=== PATIENT | female | born 1945 | race Caucasian/White ===

== ENCOUNTER 2016-06-10 20:13 | Emergency (ER) | payer MEDICARE, MEDICAID ==
[~2016-06-10] VITALS: Ht 149.9 cm; Wt 77.1 kg
[2016-06-10] MEDS ORDERED: AMIT100TA PO (20:30)
[2016-06-10] MEDS ORDERED: NEXI40CA PO (20:30)
[2016-06-10] MEDS ORDERED: COLC1TAB5 PO (20:30)
[2016-06-10] MEDS ORDERED: IBUP200C PO (20:30)
[2016-06-10] MEDS ORDERED: RANI150T PO (20:30)
[2016-06-10] MEDS ORDERED: MAGN1TAB25 PO (20:30)
[2016-06-10] MEDS ORDERED: TOPR100T PO (20:30)
[2016-06-10] MEDS ORDERED: MECL-86 PO (20:30)
[2016-06-10] MEDS ORDERED: HYDR12.55 PO (20:30)
[2016-06-10] MEDS ORDERED: NORCO, ANEXSIA 5/325MG TABLET (HYDROcodone/ACETAMINOPHEN) PO ONE ×2 (20:45→23:00)
--- NOTE | 2016-06-10 21:30 | REPUSA ---
CLINICAL HISTORY: Head trauma. TECHNIQUE: Multiple axial brain CT scan sections were obtained from base to vertex without contrast a dministration. COMMENTS: There is no evidence of skull fracture. Right frontal scalp hematoma is seen. The study shows normal configuration of sella turcica. There are no intra or extra-axial collections. There is no mass effect or midline shift. There is no evidence of hematoma formation. No hydrocephal us is present. No abnormal calcifications are noted. No significant abnormalities are seen either in the posterior fossa or supratentorial compartment. The sinuses and mastoid air cells are patent. IMPRESSION: No evidence of acute intracranial pathology. No intracranial hemorrhage or skull fracture. Right fron mckenna scalp hematoma is seen. Thank you for your kind referral of this patient.
[2016-06-10 22:01] LABS: BASO % 0.2 % (0.0-1.0); EOS # 0.1 K/mm3 (0.0-0.50); EOS % 1.6 % (0.0-3.0); LARGE UNSTAINED CELL # 0.2 K/mm3 (0.0-0.4); LARGE UNSTAINED CELL % 3.1 % (0.0-4.0); MEAN CORPUSCULAR HEMOGLOBIN 28.6 pg (27.0-33.0); MEAN CORPUSCULAR HGB CONC 32.1 g/dl (32.0-36.5); MEAN CORPUSCULAR VOLUME 89.2 fl (80.0-96.0); MONO # 0.4 K/mm3 (0.0-0.8); MONO % 6.2 % (0.0-5.0); NEUTROPHILS # 4.7 K/mm3 (1.8-7.7); NEUTROPHILS % 73.9 % (36.0-66.0); PLATELET COUNT, AUTOMATED 200 k/mm3 (150-450); WHITE BLOOD COUNT 6.4 K/mm3 (4.0-10.0)
[2016-06-10 22:18] LABS: CALCIUM LEVEL 8.9 MG/DL (8.8-10.2); CREATININE FOR GFR 1.13 MG/DL (0.55-1.02); GLOMERULAR FILTRATION RATE 50.8 (>45); POTASSIUM SERUM 3.9 MEQ/L (3.5-5.1)
[2016-06-10] MEDS ORDERED: NS 1,000 ML IV ONE (22:45)
[2016-06-11 00:22] VITALS: BP 132/78
--- NOTE | 2016-06-11 08:26 | ECGEPIP ---
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
--- NOTE | 2016-06-11 08:49 | REP ---
LEFT WRIST SERIES: Four views. HISTORY: Trauma. FINDINGS: There is marked diffuse osteoporosis. There is a dystrophic pattern of fairly advanced periarticular calcification and chondrocalcinosis involving multiple joints including the MCP, metacarpocarpal, and radiocarpal articulations. In addition, there is a comminuted fracture of the distal radial metaphysis. There is 3 mm of dorsal displacement on lateral film and associated swelling. There is an associated fracture of the base and tip of the ulnar styloid. The distal radial fracture is somewhat impacted. IMPRESSION: 1. Impacted slightly displaced distal radial fracture with associated ulnar styloid fractures. 2. Chondrocalcinosis 3. Periarticular dystrophic soft-tissue calcification affecting multiple joints. 4. Osteoporosis. Signed by Héctor Martinez MD 06/11/2016 06:14 P
== END 2016-06-11 00:24 | disposition home or self-care (01) ==
LOC: EDBD 20:13 → M ED 21:01
DX: S52.502A Unspecified fracture of the lower end of left radius, initial encounter for closed fracture (principal); S00.93XA Contusion of unspecified part of head, initial encounter; W01.0XXA Fall on same level from slipping, tripping and stumbling without subsequent striking against object, initial encounter; Y92.018 Other place in single-family (private) house as the place of occurrence of the external cause; Y93.89 Activity, other specified; Y99.8 Other external cause status; E86.0 Dehydration; K21.9 Gastro-esophageal reflux disease without esophagitis; R42 Dizziness and giddiness; M19.90 Unspecified osteoarthritis, unspecified site; Z79.899 Other long term (current) drug therapy

== ENCOUNTER 2016-07-28 10:11 | Emergency (ER) | payer MEDICARE, MEDICAID ==
[~2016-07-28] VITALS: Ht 149.9 cm; Wt 85.7 kg
[~2016-07-28 10:11] MED LIST: AMIT100TA PO; COLC1TAB5 PO; HYDR12.55 PO; IBUP200C PO; MAGN1TAB25 PO; MECL-86 PO; NEXI40CA PO; RANI150T PO; TOPR100T PO
[2016-07-28 10:12] VITALS: BP 114/78
[2016-07-28] MEDS ORDERED: HYDR200T3 (10:25)
[2016-07-28] MEDS ORDERED: CEPH500C (10:25)
[2016-07-28] MEDS ORDERED: METO-209 (10:25)
[2016-07-28] MEDS ORDERED: BACT800T5 PO (10:42)
[2016-07-28] MEDS ORDERED: VALT1TAB PO (10:42)
[2016-07-28] MEDS ORDERED: TYLETAB14 PO (10:44)
== END 2016-07-28 10:59 | disposition home or self-care (01) ==
LOC: M ED 10:48
DX: B02.8 Zoster with other complications (principal); L03.211 Cellulitis of face; L02.01 Cutaneous abscess of face; Z79.899 Other long term (current) drug therapy

== ENCOUNTER 2020-02-11 00:04 | Emergency (ER) | payer MEDICAID, MEDICARE ==
[~2020-02-11] VITALS: Ht 149.9 cm; Wt 77.0 kg
[~2020-02-11 00:04] MED LIST changes: +BACT800T5 PO; +CEPH500C; +COLC1TAB14 PO; -COLC1TAB5 PO; +HYDR200T3; -IBUP200C PO; +IBUP200C25 PO; -MAGN1TAB25 PO; +MAGN1TAB26 PO; +METO1TAB33; +TYLETAB14 PO; +VALT1TAB PO
[2020-02-11] MEDS ORDERED: NORCO, ANEXSIA 5/325MG TABLET (HYDROcodone/ACETAMINOPHEN) PO ONE (00:45)
[2020-02-11] MEDS ORDERED: METOPROLOL SUCC (TopROL XL) 100MG *XL* TAB PO ONE (01:45)
[2020-02-11 01:49] VITALS: BP 156/98
--- NOTE | 2020-02-11 01:57 | REPVR ---
PROCEDURE INFORMATION: Exam: XR Right Shoulder Exam date and time: 02/11/2020 1:30 AM Age: 75 years old Clinical indication: Other: Pain TECHNIQUE: Imaging protocol: XR Right shoulder. Views: 2 or more views. COMPARISON: No relevant prior studies available. FINDINGS: Bones/joints: Bony mineralization is normal for age. No evidence of acute fracture. No concerning osseous lesion. AC joint is aligned normally. Joint space narrowing and AC joint osteophyte formation suggests mild OA. Glenohumeral joint is aligned normally. Advanced degenerative osteoarthrosis with joint space narrowing marginal osteophytes and probable synovial osteochondromas Visualized upper ribs are unremarkable. Soft tissues: No abnormal soft tissue process. No concerning soft tissue calcifications. IMPRESSION: Advanced degenerative osteoarthrosis of the glenohumeral joint and mild degenerative arthrosis of the AC joint. No acute fracture Electronically signed by: Kasi Pelayo On 02/11/2020 01:56:54 AM
--- NOTE | 2020-02-11 02:00 | REPVR ---
PROCEDURE INFORMATION: Exam: XR Right Elbow Exam date and time: 02/11/2020 1:30 AM Age: 75 years old Clinical indication: Other: Pain TECHNIQUE: Imaging protocol: XR Right elbow. Views: 3 or more views. COMPARISON: No relevant prior studies available. FINDINGS: Diffuse skeletal demineralization. No soft tissue defect or focal soft tissue swelling. No acute fracture or osseous malalignment. Ulnohumeral and radiocapitellar degenerative joint space narrowing and osteophyte formation is present. Ossification is present within the common flexor and common extensor origins and chondrocalcinosis is seen in the joint. IMPRESSION: No acute or destructive process. 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 Common flexor and common extensor origin chronic tendinopathy with ossification Electronically signed by: Kasi Pelayo On 02/11/2020 02:00:10 AM
[2020-02-11 02:10] LABS: BASO % 0.3 % (0.0-1.0); EOS % 0.2 % (0.0-3.0); HEMATOCRIT 36.4 % (36.0-47.0); HEMOGLOBIN 11.7 g/dl (12.0-15.5); LYMPH # 1.3 10^3/uL (1.5-5.0); LYMPH % 8.9 % (24.0-44.0); MEAN CORPUSCULAR HEMOGLOBIN 28.6 pg (27.0-33.0); MEAN CORPUSCULAR HGB CONC 32.1 g/dl (32.0-36.5); MONO # 1.5 10^3/uL (0.0-0.8); MONO % 10.4 % (0.0-5.0); NEUTROPHILS # 11.6 10^3/uL (1.5-8.5); NEUTROPHILS % 79.9 % (36.0-66.0); PLATELET COUNT, AUTOMATED 243 10^3/uL (150-450); RED BLOOD COUNT 4.09 10^6/uL (4.00-5.40); WHITE BLOOD COUNT 14.6 10^3/uL (4.0-10.0)
[2020-02-11 02:41] LABS: ERYTHROCYTE SEDIMENTATION RATE 62 mm/hr (0-30)
[2020-02-11] MEDS ORDERED: KETOROLAC TROMETHAMINE 10 MG TAB PO ONE (03:15)
[2020-02-11] MEDS ORDERED: COLCHICINE 0.6 MG TAB PO ONE (04:15)
--- NOTE | 2020-02-11 05:14 | ECGEPIP ---
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
[2020-02-11] MEDS ORDERED: KETO10TAB PO (05:29)
[2020-02-11] MEDS ORDERED: COLC1TAB13 PO (05:29)
[2020-02-11 05:34] VITALS: BP 121/66
--- NOTE | 2020-02-13 09:56 | ECGEPIP ---
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
== END 2020-02-11 05:54 | disposition home or self-care (01) ==
LOC: M ED 00:04
DX: M10.9 Gout, unspecified (principal); M19.90 Unspecified osteoarthritis, unspecified site; I10 Essential (primary) hypertension; K21.9 Gastro-esophageal reflux disease without esophagitis; Z91.19 Patient's noncompliance with other medical treatment and regimen

== ENCOUNTER 2021-01-14 22:06 | Inpatient (IN) | payer MEDICARE ==
[~2021-01-14 22:06] MED LIST changes: +COLC0.6T47 PO; +KETO10TAB PO
--- OUTSIDE RECORDS SUMMARY | 2021-01-14 22:12 | CCD | Continuity of Care Document ---
Author Author Renetta RAMOS M.D. Organization Unknown Address [address] [facility] [address] [place] [address] Phone [phone] Care Team Providers Care Crm Analyst Name Role Phone Ed Ramos MD AUTM [phone] Abundio Doran MD AUTM [phone] Problems Active Problems Provider Date Pure hypercholesterolemia Onset: 0 000 Gastroesophageal reflux disease Onset: 0 Labile essential hypertension Onset: Urinary incontinence Ed Ramos M.D. Onset: 07/23/2016 Social History Type Date Description Comments Sex Unknown ETOH Use Denies alcohol use Tobacco Use Start: Unknown Patient has never smoked Allergies, Adverse Reactions, Alerts Description No Known Drug Allergies Medications Active Medications SIG Qnty Indications Ordering Provide r Date Tramadol HCL 50mg Tablets 1 tab 2 times a day as needed pain 14tabs Ed Ramos M.D. 05/21/19 21 Prednisone 10mg Tablets take 2 tablets by mouth x 7 days 14tabs GRICELDA Smith JR 020 Furosemide 20mg Tablets one by mouth in the morning 30tabs GRICELDA Smith JR 020 Famotidine 20mg Tablets 1 by mouth every day 180tabs Ed Ramos M.D. 07/29/2019 Esomeprazole Magnesium 40mg Capsul es DR 1 by mouth every day 90caps Ed Ramos M.D. 05/04/19 20 Triamcinolone Acetonide 0.1% Ointm ent use twice a day as needed to arms and both legs 80gm Kyle Ramos M.D. 04/29/2019 Pain Relief 8 Hour 500mg Tablets E R 1 by mouth as needed every 8 hours 90tabs Nurse #2 Earache Drops Solution Nurse #2 07/23/2016 Depends Size Large use as directed 5PKGS Ed Ramos M.D. 07/23/2016 Hydroxychloroquine Sulfate 200mg T ablets take one tablet by mouth daily 60tabs Alesha Pandya 06/16/2016 Amitriptyline HCL 100mg Tablets 1 by mouth every night at bedtime 30tabs Ed Ramos M.D. 11/2014 Metoprolol Succinate ER 100mg Tablets ER 24HR 1 by mouth every day 30tabs Ed Ramos M.D. 12/06/2014 Magnesium Oxide 400mg Tablets 1 by mouth twice a day 60tabs Ed Ramos M.D. 12/06/2014 Colcrys 0.6mg Tablets Take One Tablet By Mouth Every Day 30tabs Carolina Cheng DO 12/06/2014 Meclizine HCL 25mg Tablets Take One Tablet By Mouth Twice A Day For Dizziness 60tabs Charan Tinajero 11/07/2014 Hydrochlorothiazide 25mg Tablets 1 by mouth every day 30tabs Ed Ramos M.D. 11/03/2014 Immunizations CPT Code Status Date Vaccine Lot # [id number] Refused 01/13/2018 Influenza Virus Vaccine, Quadrivalent (Cciiv4), Derived From Cell 26179 Refused 01/13/2018 Zoster Vaccine 69200 Refused 01/13/2018 Pneumovax 23 60565 Refused 01/13/2018 Tetanus/Diptheria(Td)Toxoids Preservative Free 12728 Refused 01/13/2018 Prevnar 13 87884 Refused 12/09/2017 Prevnar 13 84331 Refused 12/28/2013 Influenza Virus Vaccine 76792 Refused 01/24/2013 Influenza Virus Vaccine 91085 Refused 08/02/2012 Influenza Virus Vaccine 25246 Refused 04/21/2012 Zoster Vaccine 66991 Refused 04/21/2012 Pneumovax 23 60716 Refused 04/21/2012 Adacel- Tetanus Diphtheria P ertussis (Age64 & Under) 51225 Refused 02/15/2011 Influenza Virus Vaccine Vital Signs Date Vital Result Comment 09/10/2020 12:52pm BP Systolic 134 mmHg BP Diastolic 80 mmHg Heart Rate 72 /min Height 60 inches 5'0" Weight 190.00 lb BMI (Body Mass Index) 37.1 kg/m2 05/21/2020 8:25am BP Systolic 130 mmHg BP Diastolic 78 mmHg Heart Rate 80 /min Height 60 inches 5'0" Weight 191.00 lb BMI (Body Mass Index) 37.3 kg/m2 Results Test Acquired Date Facility Test Result H/L Range Note Complete Blood Count 09/10/2020 [facility] Orientation & Mobility Specialist: Dr Gigi Wagner [place], [place] [id number] [phone] WBC 6.9 x10*3/UL 4.1 - 10.9 RBC 4.22 x10*6/UL 4.20 - 6.30 Hemoglobin 12.0 g/dL 12.0 - 18.0 Hematocrit 36.2 % Low 37.0 - 51.0 MCV 85.9 fL 80.0 - 97.0 MCH 28.4 pg 26.0 - 32.0 MCHC 33.1 g/dL 31.0 - 38.0 RDW 13.9 % High 11.6 - 13.7 PLT 272 x10*3/UL 140 - 440 MPV 7.5 FL Low 7.8 - 11.0 Lymph % 18.8 % 10.0 - 58.5 Mid % 6.0 % 1.7 - 9.3 Neut % 75.2 % 37.0 - 92.0 Lymph # 1.3 x10*3/UL 0.6 - 4.1 Mid # 0.4 x10*3/UL 0.1 - 0.6 Neut # 5.2 x10*3/UL 2.0 - 7.8 Comprehensive Chem Profile 09/10/2020 [facility] Mobility Specialist: [place] [address] [phone] Glucose 97 mg/dL 74 - 99 1 BUN 20 mg/dL High 7 - 18 Creatinine 1.0 mg/dL 0.6 - 1.3 Sodium 138 mEq/L 136 - 145 Potassium 4.4 mEq/L 3.5 - 5.1 Chloride 102 mEq/L 98 - 107 Carbon Dioxide 25 mEq/L 21 - 32 Calcium 9.6 mg/dL 8.5 - 10.1 Alk. 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 Ed Ramos M.D. I12.9 Hypertensive chronic kidney disease w st g 1-4/unsp chr kdny N18.30 Chronic kidney disease, stag e 3 unspecified E78.00 Pure hypercholesterolemia, u nspecified E83.42 Hypomagnesemia K21.9 Gastro-esophageal reflux dis ease without esophagitis M13.0 Polyarthritis, unspecified R73.01 Impaired fasting glucose Z96.651 Presence of right artificial knee joint Z96.652 Presence of left artificial knee joint Assessments Date Code Description Provider 09/10/2020 I12.9 Hypertensive chronic kidney dise ase with stage 1 through sta Ed Ramos M.D. 09/10/2020 N18.30 Chronic kidney disease, stage 3 unspecified Ed Ramos M.D. 09/10/2020 E78.00 Pure hypercholesterolemia, unspe cified Ed Ramos M.D. 09/10/2020 E83.42 Hypomagnesemia Ed Ramos M.D. 09/10/2020 K21.9 Gastro-esophageal reflux disease without esophagitis Ed Ramos M.D. 09/10/2020 M13.0 Polyarthritis, unspecified Ed Ramos M.D. 09/10/2020 R73.01 Impaired fasting glucose Ed Ramos M.D. 09/10/2020 Z96.651 Presence of right artificial kne e joint Ed Ramos M.D. 09/10/2020 Z96.652 Presence of left artificial knee joint Ed Ramos M.D. Plan of Treatment 09/10/2020 - Ed Ramos M.D.* I12.9 Hypertensive chronic kidney disease w stg 1-4/unsp chr kdny * N18.30 Chronic kidney disease, stage 3 unspecified * E78.00 Pure hypercholesterolemia, unspecified * E83.42 Hypomagnesemia * K21.9 Gastro-esophageal reflux disease without esophagitis * M13.0 Polyarthritis, unspecified * R73.01 Impaired fasting glucose * Z96.651 Presence of right artificial knee joint * Z96.652 Presence of left artificial knee joint * * Comments:* 1. Hypertensive CKD w stg 1-4/unsp chr kdny: Blood pressure is stable on present regimen, will continue and monitor.2. CKD, stage 3: Await for lab results. She will stay well hydrated. Patient will continue to avoid Aleve, ibuprofen and other nephrotoxins. We will continue to monitor.3. Hypercholesterolemia: Await for lab results. She will continue to watch her diet. We will monitor.4. Hypomagnesemia: Await for lab results.5. GERD without esophagitis: Patient is unsure whether she is taking her medications or not. She did not bring her medicines today along with her. 6. Polyarthritis: Generally stable. She will follow up with Rheumatology appropriately.7. Impaired fasting glucose: Await for lab results. She will continue to watch her diet. We will monitor.8. Presence of right artificial knee joint: No issues or concerns. We will continue to monitor.9. Presence of left artificial knee joint: Generally doing well with history of left knee arthroplasty in 2013. We will monitor.10. Urticaria: We have discussed about this in detail and patient is not interested in seeing Dermatology. She will continue to use Triamcinolone as directed and I have refilled this today. She should avoid scratching and will continue to watch for any infection or red spots. She will let me know if she has any issues.Ongoing cares: She will call me after reaching home regarding her medications that she is curre ntly on. She is referred to hearing for decreased hearing. I am going to see her again in 3-4 months with labs to be determined based on those are being completed on way out today. If she has new problems or issues sooner she will let us know. Functional Status Description No Information Available Mental Status Description No Information Available Referrals Description No Information Available
--- OUTSIDE RECORDS SUMMARY | 2021-01-14 22:13 | CCD ---
Author Author [facility] Organization [facility] Address Unknown Phone Unavailable Care Team Providers Care Fire Boss Name Role Phone Restrepo, Marilou LICENSED PHYSICAL THERAPIST Unavailable Unavailable Restrepo, Marilou LICENSED PHYSICAL THERAPIST Unavailable Unavailable Restrepo, Marilou LICENSED PHYSICAL THERAPIST Unavailable Unavailable Restrepo, Marilou LICENSED PHYSICAL THERAPIST Unavailable Unavailable Restrepo, Marilou LICENSED PHYSICAL THERAPIST Unavailable Unavailable Restrepo, Marilou LICENSED PHYSICAL THERAPIST Unavailable Unavailable Restrepo, Marilou LICENSED PHYSICAL THERAPIST Unavailable Unavailable Restrepo, Marilou LICENSED PHYSICAL THERAPIST Unavailable Unavailable Restrepo, Marilou LICENSED PHYSICAL THERAPIST Unavailable Unavailable Restrepo, Marilou LICENSED PHYSICAL THERAPIST Unavailable Unavailable Restrepo, Marilou LICENSED PHYSICAL THERAPIST Unavailable Unavailable Restrepo, Marilou LICENSED PHYSICAL THERAPIST Unavailable Unavailable Restrepo, Marilou LICENSED PHYSICAL THERAPIST Unavailable Unavailable Ariela Ramos MD Unavailable Unavailable Ariela Ramos MD Unavailable Unavailable Ariela Ramos MD Unavailable Unavailable Ariela Ramos MD Unavailable Unavailable Ariela Ramos MD Unavailable Unavailable Ariela Ramos MD Unavailable Unavailable Ariela Ramos MD Unavailable Unavailable Ariela Ramos MD Unavailable Unavailable Ariela Ramos MD Unavailable Unavailable Ariela Ramos MD Unavailable Unavailable Ariela Ramos MD Unavailable Unavailable Ariela Ramos MD Unavailable Unavailable Ariela Ramos MD Unavailable Unavailable Ariela Ramos MD Unavailable Unavailable Ariela Ramos MD Unavailable Unavailable Ariela Ramos MD Unavailable Unavailable Arieal Ramos MD Unavailable Unavailable Ariela Ramos MD Unavailable Unavailable Ariela Ramos MD Unavailable Unavailable Ariela Ramos MD Unavailable Unavailable Ariela Ramos MD Unavailable Unavailable Ariela Ramos MD Unavailable Unavailable Ariela Ramos MD Unavailable Unavailable Ariela Ramos MD Unavailable Unavailable Ariela Ramos MD Unavailable Unavailable Ariela Ramos MD Unavailable Unavailable Ariela Ramos MD Unavailable Unavailable Ariela Ramos MD Unavailable Unavailable Ariela Ramos MD Unavailable Unavailable Ariela Ramos MD Unavailable Unavailable Ariela Ramos MD Unavailable Unavailable Ariela Ramos MD Unavailable Unavailable Ariela Ramos MD Unavailable Unavailable Ariela Ramos MD Unavailable Unavailable Ariela Ramos MD Unavailable Unavailable Ariela Ramos MD Unavailable Unavailable Ariela Ramos MD Unavailable Unavailable Ariela Ramos MD Unavailable Unavailable Ariela Ramos MD Unavailable Unavailable Ariela Ramos MD Unavailable Unavailable Ariela Ramos MD Unavailable Unavailable Ariela Ramos MD Unavailable Unavailable Ariela Ramos MD Unavailable Unavailable Ariela Ramos MD Unavailable Unavailable Ariela Ramos MD Unavailable Unavailable Ariela Ramos MD Unavailable Unavailable Ariela Ramos MD Unavailable Unavailable Ariela Ramos MD Unavailable Unavailable Ariela Ramos MD Unavailable Unavailable Ariela Ramos MD Unavailable Unavailable Ariela Ramos MD Unavailable Unavailable Ariela Ramos MD Unavailable Unavailable Ariela Ramos MD Unavailable Unavailable Ariela Ramos MD Unavailable Unavailable Ariela Ramos MD Unavailable Unavailable Ariela Ramos MD Unavailable Unavailable Ariela Ramos MD Unavailable Unavailable Ariela Ramos MD Unavailable Unavailable Ariela Ramos MD Unavailable Unavailable Ariela Ramos MD Unavailable Unavailable Ariela Ramos MD Unavailable Unavailable Ariela Ramos MD Unavailable Unavailable Ariela Ramos MD Unavailable Unavailable Ariela Ramos MD Unavailable Unavailable Ariela Ramos MD Unavailable Unavailable Ariela Ramos MD Unavailable Unavailable Ariela Ramos MD Unavailable Unavailable Ariela Ramos MD Unavailable Unavailable Ariela Ramos MD Unavailable Unavailable Ariela Ramos MD Unavailable Unavailable Ariela Ramos MD Unavailable Unavailable Ariela Ramos MD Unavailable Unavailable Ariela Ramos MD Unavailable Unavailable Ariela Ramos MD Unavailable Unavailable Ariela Ramos MD Unavailable Unavailable Ariela Ramos MD Unavailable Unavailable Ariela Ramos MD Unavailable Unavailable LISETTE GILLILAND Unavailable Unavailable PICKERAL JR, J PAT PA-C Unavailable Unavailable PICKERAL JR, J PAT PA-C Unavailable Unavailable PICKERAL JR, J PAT PA-C Unavailable Unavailable PICKERAL JR, J PAT PA-C Unavailable Unavailable PICKERAL JR, J PAT PA-C Unavailable Unavailable PICKERAL JR, J PAT PA-C Unavailable Unavailable PICKERAL JR, J PAT PA-C Unavailable Unavailable PICKERAL JR, J PAT PA-C Unavailable Unavailable PICKERAL JR, J PAT PA-C Unavailable Unavailable PICKERAL JR, J PAT PA-C Unavailable Unavailable PICKERAL JR, J PAT PA-C Unavailable Unavailable PICKERAL JR, J PAT PA-C Unavailable Unavailable PICKERAL JR, J PAT PA-C Unavailable Unavailable PICKERAL JR, J PAT PA-C Unavailable Unavailable PICKERAL JR, J PAT PA-C Unavailable Unavailable PICKERAL JR, J PAT PA-C Unavailable Unavailable PICKERAL JR, J PAT PA-C Unavailable Unavailable PICKERAL JR, J PAT PA-C Unavailable Unavailable PICKERAL JR, J PAT PA-C Unavailable Unavailable PICKERAL JR, J PAT PA-C Unavailable Unavailable PICKERAL JR, J PAT PA-C Unavailable Unavailable PICKERAL JR, J PAT PA-C Unavailable Unavailable PICKERAL JR, J PAT PA-C Unavailable Unavailable PICKERAL JR, J PAT PA-C Unavailable Unavailable PICKERAL JR, J PAT PA-C Unavailable Unavailable PICKERAL JR, J PAT PA-C Unavailable Unavailable PICKERAL JR, J PAT PA-C Unavailable Unavailable Perdomo, Hanh Gwendolyn PA Unavailable Unavailable Perdomo, Hanh Gwendolyn PA Unavailable Unavailable Perdomo, Hanh Gwendolyn PA Unavailable Unavailable Perdomo, Hanh Gwendolyn PA Unavailable Unavailable Perdomo, Hanh Gwendolyn PA Unavailable Unavailable Perdomo, Hanh Gwendolyn PA Unavailable Unavailable Perdomo, Hanh Gwendolyn PA Unavailable Unavailable Perdomo, Hanh Gwendolyn PA Unavailable Unavailable Perdomo, Hanh Gwendolyn PA Unavailable Unavailable Perdomo, Hanh Gwendolyn PA Unavailable Unavailable Lisette Gilliland Unavailable Unavailable TEST, PROVIDER Unavailable Unavailable GRICELDA GILLILAND M LISETTE Unavailable Unavailable GRICELDA GILLILAND M LISETTE Unavailable Unavailable GRICELDA GILLILAND M LISETTE Unavailable Unavailable GRICELDA GILLILAND M LISETTE Unavailable Unavailable GRICELDA GILLILAND M LISETTE Unavailable Unavailable DARSHANA PA M LISETTE Unavailable Unavailable DARSHANA PA M LISETTE Unavailable Unavailable DARSHANA PA M LISETTE Unavailable Unavailable GRICELDA GILLILAND M LISETTE Unavailable Unavailable DARSHANA PA M LISETTE Unavailable Unavailable DARSHANA PA M LISETTE Unavailable Unavailable Re-disclosure Warning The records that you are about to access may contain information from federally-assisted alcohol or drug abuse programs. If such information is present, then the following federally mandated warning applies: This information has been disclosed to you from records protected by federal confidentiality rules (42 CFR part 2). The federal rules prohibit you from making any further disclosure of this information unless further disclosure is expressly permitted by the written consent of the person to whom it pertains or as otherwise permitted by 42 CFR part 2. A general authorization for the release of medical or other information is NOT sufficient for this purpose. The Federal rules restrict any use of the information to criminally investigate or prosecute any alcohol or drug abuse patient.The records that you are about to access may contain highly sensitive health information, the redisclosure of which is protected by Article 27-F of the [facility] Public Health law. If you continue you may have access to information: Regarding HIV / AIDS; Provided by facilities licensed or operated by the [facility] Office of Mental Health; or Provided by the [facility] Office for People With Developmental Disabilities. If such information is present, then the following [facility] mandated warning applies: This information has been disclosed to you from confidential records which are protected by state law. State law prohibits you from making any further disclosure of this information without the specific written consent of the person to whom it pertains, or as otherwise permitted by law. Any unauthorized further disclosure in violation of state law may result in a fine or prison sentence or both. A general authorization for the release of medical or other information is NOT sufficient authorization for further disc losure. Family History Family Member Name Family Member Gender Family Member Status Date o f Status Description Data Source(s) Unknown Female Problem [facility] ([facility]) Unknown Female Problem [facility] ([facility]) Unknown Unknown Problem [facility] ([facility] Unknown Female Problem [facility] ([facility] Encounters Encounter Providers Location Date Indications Data Source(s ) P Attender: PROVIDER TESTAdmitter: PROVIDER TEST P EW-PEW 10/10/2020 07:46:00 PM EDT [facility]go[facility] - [facility] Outpatient Attender: LISETTE GILLILANDAdmitter: LISETTE HO PEW-PEW 10/10/2020 05:00:00 AM EDT - 10/10/2020 05:00:00 AM EDT [facility]itt Idalmis - [facility] Patient discharged. <content styleCode="Bold">OLLiza MACKENZIE4 FIN 20 [id number] Date(s): 10/10/20 - 10/11/20</content>
[address]
<content styleCode="Bold Underline">Encounter Diagnosis</content>
<content ID="[id number]">Unspecified open wound, left foot, initial encounter</content> (Discharge Diagnosis) -
<content ID="[id number]">Discharge Disposition: DSC to Home</content>
Attending Physician: Lisette Gilliland PA
Admitting Physician: Lisette Gilliland PA
Outpatient Ancillary Attender: GRICELDA GILLILANDAttender: Lisette GillilandAdmitter: Lisette Gilliland [facility] 10/10/2020 05:00:00 AM EDT - 10/11/2020 11:59:59 PM EDT [facility]itt Idalmis - [facility] Outpatient Attender: Ed Otero 09/10 01:00:00 PM EDT [facility] ([facility] ) Outpatient Attender: Ed Otero 05/21 07:30:00 AM EST [facility] ([facility] ) Outpatient Attender: Marilou garza 05/07/2020 10:30:00 AM EST [facility] ([facility]) Outpatient Attender: PAT Otero 1 05/21/2019 02:20:00 PM EST [facility] ([facility] ) Outpatient Attender: Gwendolyn kay 01/24/2020 01:00:00 PM EDT [facility] ([facility]) Medications Medication Brand Name Start Date Product Form Dose Route Admi nistrative Instructions Pharmacy Instructions Status Indications Reaction Description Data Source(s) 100 mg 01/05/2021 12:00:00 AM EDT tablet extended release 24 hr 30 TAKE ONE TABLET BY MOUTH EVERY DAY TAKE ONE TABLET BY MOUTH EVERY DAY SOLD: 01/07/2021 [facility] Meclizine Hydrochloride 25 MG Oral Tablet MECLIZINE HCL 10/25/2020 12:00:00 AM EDT tablet 60 TAKE ONE TABLET BY MOUTH TWI CE A DAY FOR DIZZINESS TAKE ONE TABLET BY MOUTH TWICE A DAY FOR DIZZINESS SOLD: 12/10/2020 [facility] Meclizine Hydrochloride 25 MG Oral Tablet MECLIZINE HCL 10/25/2020 12:00:00 AM EDT tablet 60 TAKE ONE TABLET BY MOUTH TWI CE A DAY FOR DIZZINESS TAKE ONE TABLET BY MOUTH TWICE A DAY FOR DIZZINESS SOLD: 01/07/2021 [facility] Meclizine Hydrochloride 25 MG Oral Tablet MECLIZINE HCL 10/25/2020 12:00:00 AM EDT tablet 60 TAKE ONE TABLET BY MOUTH TWI CE A DAY FOR DIZZINESS TAKE ONE TABLET BY MOUTH TWICE A DAY FOR DIZZINESS SOLD: 10/29/2020 [facility] Bactrim DS 800 mg-160 mg oral tablet [id number] 10/10/2020 08:09:00 P M EDT 1.0 By Mouth active 1 tab(s), PO (oral), bid, # 14 tab(s), M aintenance, Pharmacy: [facility]/pharmacy #[id number], 1 tab(s) PO (oral) bid,x7 day(s) [facility] Bactroban 2% topical ointment [id number] 10/10/2020 08:09:00 PM EDT 1.0 On Skin active 1 savanah, Topical, tid, # 30 g, Maintenance , Pharmacy: [facility]/pharmacy #[id number], 1 savanah Topical tid [facility] Meclizine Hydrochloride 25 MG Oral Tablet meclizine 25 mg oral tablet meclizine 25 mg oral tablet 10/10/2020 07:53:00 PM EDT 25.0 mg By Mouth active 25 mg = 1 tab(s), PO (oral), tid, PRN Dizziness, 0 Ref ill(s), Maintenance [facility]almis - [facility] 100 mg 09/19/2020 12:00:00 AM EDT tablet 30 TAKE ONE TABLET BY MOUTH AT BEDTIME TAKE ONE TABLET BY MOUTH AT BEDTIME SOLD: 01/07/2021 [facility] Hydroxychloroquine Sulfate 200 MG Oral Tablet HYDROXYCHLOROQ UINE SULFATE 09/19/2020 12:00:00 AM EDT tablet 60 TAKE ONE TABLE T BY MOUTH EVERY DAY TAKE ONE TABLET BY MOUTH EVERY DAY SOLD: 09/20/2020 [facility] Hydroxychloroquine Sulfate 200 MG Oral Tablet HYDROXYCHLOROQ UINE SULFATE 09/19/2020 12:00:00 AM EDT tablet 60 TAKE ONE TABLE T BY MOUTH EVERY DAY TAKE ONE TABLET BY MOUTH EVERY DAY SOLD: 12/10/2020 [facility] 100 mg 09/19/2020 12:00:00 AM EDT tablet 30 TAKE ONE TABLET BY MOUTH AT BEDTIME TAKE ONE TABLET BY MOUTH AT BEDTIME SOLD: 12/10/2020 [facility] 100 mg 09/19/2020 12:00:00 AM EDT tablet 30 TAKE ONE TABLET BY MOUTH AT BEDTIME TAKE ONE TABLET BY MOUTH AT BEDTIME SOLD: 09/20/2020 [facility] 100 mg 09/19/2020 12:00:00 AM EDT tablet 30 TAKE ONE TABLET BY MOUTH AT BEDTIME TAKE ONE TABLET BY MOUTH AT BEDTIME SOLD: 10/29/2020 [facility] 0.1 % 09/10/2020 12:00:00 AM EDT ointment 80 APPLY TO AFFECTED AREA(S) TWO TIMES A DAY TO ARMS AND BOTH LEGS NEEDED APPLY TO AFFECTED AREA(S) TWO TIMES A DAY TO ARMS AND BOTH LEGS NEEDED SOLD: 09/17/2020 [facility] 25 mg 08/17/2020 12:00:00 AM EDT tablet 30 TAKE ONE TABLET BY MOUTH EVERY DAY TAKE ONE TABLET BY MOUTH EVERY DAY SOLD: 09/20/2020 [facility] Famotidine 20 MG Oral Tablet FAMOTIDINE 08/17/2020 12:00:00 AM EDT tab let 30 TAKE ONE TABLET BY MOUTH EVERY DAY TAKE ONE TABLET BY MOUTH EVERY DAY SOLD: 10/29/2020 [facility] 25 mg 08/17/2020 12:00:00 AM EDT tablet 30 TAKE ONE TABLET BY MOUTH EVERY DAY TAKE ONE TABLET BY MOUTH EVERY DAY SOLD: 10/29/2020 [facility] 25 mg 08/17/2020 12:00:00 AM EDT tablet 30 TAKE ONE TABLET BY MOUTH EVERY DAY TAKE ONE TABLET BY MOUTH EVERY DAY SOLD: 01/07/2021 [facility] Famotidine 20 MG Oral Tablet FAMOTIDINE 08/17/2020 12:00:00 AM EDT tab let 30 TAKE ONE TABLET BY MOUTH EVERY DAY TAKE ONE TABLET BY MOUTH EVERY DAY SOLD: 01/07/2021 [facility] Famotidine 20 MG Oral Tablet FAMOTIDINE 08/17/2020 12:00:00 AM EDT tab let 30 TAKE ONE TABLET BY MOUTH EVERY DAY TAKE ONE TABLET BY MOUTH EVERY DAY SOLD: 08/25/2020 [facility] 25 mg 08/17/2020 12:00:00 AM EDT tablet 30 TAKE ONE TABLET BY MOUTH EVERY DAY TAKE ONE TABLET BY MOUTH EVERY DAY SOLD: 08/25/2020 [facility] Famotidine 20 MG Oral Tablet FAMOTIDINE 08/17/2020 12:00:00 AM EDT tab let 30 TAKE ONE TABLET BY MOUTH EVERY DAY TAKE ONE TABLET BY MOUTH EVERY DAY SOLD: 09/20/2020 [facility] 25 mg 08/17/2020 12:00:00 AM EDT tablet 30 TAKE ONE TABLET BY MOUTH EVERY DAY TAKE ONE TABLET BY MOUTH EVERY DAY SOLD: 12/10/2020 [facility] Famotidine 20 MG Oral Tablet FAMOTIDINE 08/17/2020 12:00:00 AM EDT tab let 30 TAKE ONE TABLET BY MOUTH EVERY DAY TAKE ONE TABLET BY MOUTH EVERY DAY SOLD: 12/10/2020 [facility] 0.1 % 08/09/2020 12:00:00 AM EDT ointment 15 USE TWO TIMES A DAY NEEDED TO ARMS AND BOTH LEGS USE TWO TIMES A DAY NEEDED TO ARMS AND BOTH LEGS SO LD: 08/09/2020 [facility] 0.1 % 08/09/2020 12:00:00 AM EDT ointment 15 USE TWO TIMES A DAY NEEDED TO ARMS AND BOTH LEGS USE TWO TIMES A DAY NEEDED TO ARMS AND BOTH LEGS SO LD: 08/13/2020 [facility] Meclizine Hydrochloride 25 MG Oral Tablet MECLIZINE HCL 07/18/2020 12:00:00 AM EDT tablet 60 TAKE ONE TABLET BY MOUTH TWI CE A DAY FOR DIZZINESS TAKE ONE TABLET BY MOUTH TWICE A DAY FOR DIZZINESS SOLD: 08/25/2020 [facility] Meclizine Hydrochloride 25 MG Oral Tablet MECLIZINE HCL 07/18/2020 12:00:00 AM EDT tablet 60 TAKE ONE TABLET BY MOUTH TWI CE A DAY FOR DIZZINESS TAKE ONE TABLET BY MOUTH TWICE A DAY FOR DIZZINESS SOLD: 07/23/2020 [facility] Meclizine Hydrochloride 25 MG Oral Tablet MECLIZINE HCL 07/18/2020 12:00:00 AM EDT tablet 60 TAKE ONE TABLET BY MOUTH TWI CE A DAY FOR DIZZINESS TAKE ONE TABLET BY MOUTH TWICE A DAY FOR DIZZINESS SOLD: 09/20/2020 [facility] 0.1 % 07/17/2020 12:00:00 AM EDT ointment 15 APPLY TO ARMS AND BOTH LEGS TWO TIMES A DAY NEEDED APPLY TO ARMS AND BOTH LEGS TWO TIMES A DAY NEEDED SOLD: 07/23/2020 [facility] 0.1 % 07/17/2020 12:00:00 AM EDT ointment 15 APPLY TO ARMS AND BOTH LEGS TWO TIMES A DAY NEEDED APPLY TO ARMS AND BOTH LEGS TWO TIMES A DAY NEEDED SOLD: 08/25/2020 [facility] 50 mg 07/16/2020 12:00:00 AM EDT tablet 14 TAKE 1 TABLET BY MOUTH TWO TIMES A DAY NEEDED FOR PAIN MAXIMUM DAILY DOSE = 2 TABLETS TAKE 1 TABLET BY MOUTH TWO TIMES A DAY NEEDED FOR PAIN MAXIMUM DAILY DOSE = 2 TABLETS SOLD: 07/17/2020 [facility] 40 mg 05/26/2020 12:00:00 AM EST capsule,delayed release (DR/EC) 30 TAKE ONE CAPSULE BY MOUTH EVERY DAY TAKE ONE CAPSULE BY MOUTH EVERY DAY SOLD: 08/25/2020 [facility] 40 mg 05/26/2020 12:00:00 AM EST capsule,delayed release (DR/EC) 30 TAKE ONE CAPSULE BY MOUTH EVERY DAY TAKE ONE CAPSULE BY MOUTH EVERY DAY SOLD: 01/07/2021 [facility] 40 mg 05/26/2020 12:00:00 AM EST capsule,delayed release (DR/EC) 30 TAKE ONE CAPSULE BY MOUTH EVERY DAY TAKE ONE CAPSULE BY MOUTH EVERY DAY SOLD: 10/29/2020 [facility] 40 mg 05/26/2020 12:00:00 AM EST capsule,delayed release (DR/EC) 90 TAKE ONE CAPSULE BY MOUTH EVERY DAY TAKE ONE CAPSULE BY MOUTH EVERY DAY SOLD: 05/30/2020 [facility] 40 mg 05/26/2020 12:00:00 AM EST capsule,delayed release (DR/EC) 30 TAKE ONE CAPSULE BY MOUTH EVERY DAY TAKE ONE CAPSULE BY MOUTH EVERY DAY SOLD: 09/20/2020 [facility] 40 mg 05/26/2020 12:00:00 AM EST capsule,delayed release (DR/EC) 30 TAKE ONE CAPSULE BY MOUTH EVERY DAY TAKE ONE CAPSULE BY MOUTH EVERY DAY SOLD: 12/10/2020 [facility] 50 mg 05/21/2020 12:00:00 AM EST tablet 14 TAKE 1 TABLET BY MOUTH TWO TIMES A DAY NEEDED FOR PAIN MAXIMUM DAILY DOSE = 2 TABLETS TAKE 1 TABLET BY MOUTH TWO TIMES A DAY NEEDED FOR PAIN MAXIMUM DAILY DOSE = 2 TABLETS SOLD: 05/21/2020 [facility] tramadol hydrochloride 50 MG Oral Tablet Tramadol HCL 05/21/2020 12:00:00 AM EST active [facility] ([facility]) 0.5 % 05/07/2020 12:00:00 AM EST ointment 30 APPLY TO AFFECTED AREA(S) TWO TIMES A DAY FOR UP TO 4 WEEKS APPLY TO AFFECTED AREA(S) TWO TIMES A DA Y FOR UP TO 4 WEEKS SOLD: 05/07/2020 [facility] 2 % 05/07/2020 12:00:00 AM EST ointment 44 APPLY TO AFFECTED AREA(S) TWO TIMES A DAY FOR 7 DAYS APPLY TO AFFECTED AREA(S) TWO TIMES A DAY FOR 7 DAYS SOLD: 05/07/2020 [facility] Mupirocin 0.02 MG/MG Topical Ointment Mupirocin 05/07/2020 12:00:00 AM EST active [facility] ([facility]) Triamcinolone Acetonide 0.005 MG/MG Topical Ointment Triamci nolone Acetonide 05/07/2020 12:00:00 AM EST active [facility] ([facility]) 25 mg 05/07/2020 12:00:00 AM EST tablet 60 TAKE 1 TO 2 TABLETS BY MOUTH UP TO EVERY 6 HOURS NEEDED FOR ITCHING TAKE 1 TO 2 TABLETS BY MOUTH UP TO EVERY 6 HOURS NEEDED FOR ITCHING SOLD: 05/07/2020 [facility] Meclizine Hydrochloride 25 MG Oral Tablet MECLIZINE HCL 04/20/2020 12:00:00 AM EST tablet 60 TAKE ONE TABLET BY MOUTH TWI CE A DAY FOR DIZZINESS TAKE ONE TABLET BY MOUTH TWICE A DAY FOR DIZZINESS SOLD: 05/21/2020 [facility] Meclizine Hydrochloride 25 MG Oral Tablet MECLIZINE HCL 04/20/2020 12:00:00 AM EST tablet 60 TAKE ONE TABLET BY MOUTH TWI CE A DAY FOR DIZZINESS TAKE ONE TABLET BY MOUTH TWICE A DAY FOR DIZZINESS SOLD: 04/23/2020 [facility] Meclizine Hydrochloride 25 MG Oral Tablet MECLIZINE HCL 04/20/2020 12:00:00 AM EST tablet 60 TAKE ONE TABLET BY MOUTH TWI CE A DAY FOR DIZZINESS TAKE ONE TABLET BY MOUTH TWICE A DAY FOR DIZZINESS SOLD: 06/20/2020 [facility] 100 mg 03/24/2020 12:00:00 AM EST tablet 30 TAKE ONE TABLET BY MOUTH AT BEDTIME TAKE ONE TABLET BY MOUTH AT BEDTIME SOLD: 06/20/2020 [facility] 100 mg 03/24/2020 12:00:00 AM EST tablet 30 TAKE ONE TABLET BY MOUTH AT BEDTIME TAKE ONE TABLET BY MOUTH AT BEDTIME SOLD: 07/23/2020 [facility] 100 mg 03/24/2020 12:00:00 AM EST tablet 30 TAKE ONE TABLET BY MOUTH AT BEDTIME TAKE ONE TABLET BY MOUTH AT BEDTIME SOLD: 04/23/2020 [facility] 100 mg 03/24/2020 12:00:00 AM EST tablet 30 TAKE ONE TABLET BY MOUTH AT BEDTIME TAKE ONE TABLET BY MOUTH AT BEDTIME SOLD: 08/25/2020 [facility] 100 mg 03/24/2020 12:00:00 AM EST tablet 30 TAKE ONE TABLET BY MOUTH AT BEDTIME TAKE ONE TABLET BY MOUTH AT BEDTIME SOLD: 03/26/2020 [facility] 100 mg 03/24/2020 12:00:00 AM EST tablet 30 TAKE ONE TABLET BY MOUTH AT BEDTIME TAKE ONE TABLET BY MOUTH AT BEDTIME SOLD: 05/21/2020 [facility] 10 mg 03/20/2020 12:00:00 AM EST tablet 14 TAKE TWO TABLETS BY MOUTH EVERY DAY FOR 7 DAYS TAKE TWO TABLETS BY MOUTH EVERY DAY FOR 7 DAYS SOLD: 020 [facility] Prednisone 10 MG Oral Tablet Prednisone 03/20/2020 12:00:00 AM EST ORAL active [facility] ([facility]) Furosemide 20 MG Oral Tablet Furosemide 03/20/2020 12:00:00 AM EST ORAL active [facility] ([facility]) 20 mg 03/20/2020 12:00:00 AM EST tablet 30 TAKE ONE TABLET BY MOUTH EVERY MORNING TAKE ONE TABLET BY MOUTH EVERY MORNING SOLD: 03/20/2020 [facility] 25 mg 02/21/2020 12:00:00 AM EST tablet 30 TAKE ONE TABLET BY MOUTH EVERY DAY TAKE ONE TABLET BY MOUTH EVERY DAY SOLD: 03/26/2020 [facility] 25 mg 02/21/2020 12:00:00 AM EST tablet 30 TAKE ONE TABLET BY MOUTH EVERY DAY TAKE ONE TABLET BY MOUTH EVERY DAY SOLD: 05/21/2020 [facility] 25 mg 02/21/2020 12:00:00 AM EST tablet 30 TAKE ONE TABLET BY MOUTH EVERY DAY TAKE ONE TABLET BY MOUTH EVERY DAY SOLD: 04/23/2020 [facility] 25 mg 02/21/2020 12:00:00 AM EST tablet 30 TAKE ONE TABLET BY MOUTH EVERY DAY TAKE ONE TABLET BY MOUTH EVERY DAY SOLD: 02/22/2020 [facility] 25 mg 02/21/2020 12:00:00 AM EST tablet 30 TAKE ONE TABLET BY MOUTH EVERY DAY TAKE ONE TABLET BY MOUTH EVERY DAY SOLD: 07/23/2020 [facility] 25 mg 02/21/2020 12:00:00 AM EST tablet 30 TAKE ONE TABLET BY MOUTH EVERY DAY TAKE ONE TABLET BY MOUTH EVERY DAY SOLD: 06/20/2020 [facility] 10 mg 02/11/2020 12:00:00 AM EST tablet 20 TAKE ONE TABLET BY MOUTH EVERY 6 HOURS NEEDED FOR PAIN TAKE ONE TABLET BY MOUTH EVERY 6 HOURS A S NEEDED FOR PAIN SOLD: 02/11/2020 [facility] 0.6 mg 02/11/2020 12:00:00 AM EST tablet 10 TAKE ONE TABLET BY MOUTH DAILY FOR GOUT PAIN TAKE ONE TABLET BY MOUTH DAILY FOR GOUT PAIN SOLD: 02/11/2020 [facility] Sulfamethoxazole 800 MG / Trimethoprim 160 MG Oral Tab let 800-160 mg SULFAMETHOXAZOLE/TRIMETHOPRIM 01/24/2020 12:00:00 AM EDT tablet 14 TAKE ONE TABLET BY MOUTH TWICE A DAY FOR 7 DAYS TAKE ONE TABLET BY MOUTH TWICE A DAY FOR 7 DAYS SOLD: 01/24/2020 [facility] 25 mg 01/24/2020 12:00:00 AM EDT tablet 60 TAKE ONE OR TWO TABLETS BY MOUTH UP TO EVERY 6 HOURS NEEDED FOR ITCHING TAKE ONE OR TWO TABLETS BY MOUTH UP TO EVERY 6 HOURS NEEDED FOR ITCHING SOLD: 01/24/2020 [facility] Hydroxyzine Hydrochloride 25 MG Oral Tablet Hydroxyzine HCL 01/24/2020 12:00:00 AM EDT active [facility] ([facility]) Sulfamethoxazole 800 MG / Trimethoprim 160 MG Oral Tab let Sulfamethoxazole/Trimethoprim DS 01/24/2020 12:00:00 AM EDT ORAL completed [facility] ([facility]) Petrolatum 0.41 MG/MG Topical Ointment [Aquaphor] Aquaphor 01/24/2020 12:00:00 AM EDT completed [facility] ([facility]) Meclizine Hydrochloride 25 MG Oral Tablet MECLIZINE HCL 01/21/2020 12:00:00 AM EDT tablet 60 TAKE ONE TABLET BY MOUTH TWI CE A DAY FOR DIZZINESS TAKE ONE TABLET BY MOUTH TWICE A DAY FOR DIZZINESS SOLD: 02/22/2020 [facility] Meclizine Hydrochloride 25 MG Oral Tablet MECLIZINE HCL 01/21/2020 12:00:00 AM EDT tablet 60 TAKE ONE TABLET BY MOUTH TWI CE A DAY FOR DIZZINESS TAKE ONE TABLET BY MOUTH TWICE A DAY FOR DIZZINESS SOLD: 03/26/2020 [facility] Meclizine Hydrochloride 25 MG Oral Tablet MECLIZINE HCL 01/21/2020 12:00:00 AM EDT tablet 60 TAKE ONE TABLET BY MOUTH TWI CE A DAY FOR DIZZINESS TAKE ONE TABLET BY MOUTH TWICE A DAY FOR DIZZINESS SOLD: 01/24/2020 [facility] 100 mg 01/20/2020 12:00:00 AM EDT tablet extended release 24 hr 30 TAKE ONE TABLET BY MOUTH EVERY DAY TAKE ONE TABLET BY MOUTH EVERY DAY SOLD: 09/20/2020 [facility] 100 mg 01/20/2020 12:00:00 AM EDT tablet extended release 24 hr 30 TAKE ONE TABLET BY MOUTH EVERY DAY TAKE ONE TABLET BY MOUTH EVERY DAY SOLD: 01/24/2020 [facility] 100 mg 01/20/2020 12:00:00 AM EDT tablet extended release 24 hr 30 TAKE ONE TABLET BY MOUTH EVERY DAY TAKE ONE TABLET BY MOUTH EVERY DAY SOLD: 12/10/2020 [facility] 100 mg 01/20/2020 12:00:00 AM EDT tablet extended release 24 hr 30 TAKE ONE TABLET BY MOUTH EVERY DAY TAKE ONE TABLET BY MOUTH EVERY DAY SOLD: 10/29/2020 [facility] 100 mg 01/20/2020 12:00:00 AM EDT tablet extended release 24 hr 30 TAKE ONE TABLET BY MOUTH EVERY DAY TAKE ONE TABLET BY MOUTH EVERY DAY SOLD: 05/21/2020 [facility] 100 mg 01/20/2020 12:00:00 AM EDT tablet extended release 24 hr 30 TAKE ONE TABLET BY MOUTH EVERY DAY TAKE ONE TABLET BY MOUTH EVERY DAY SOLD: 03/26/2020 [facility] 100 mg 01/20/2020 12:00:00 AM EDT tablet extended release 24 hr 30 TAKE ONE TABLET BY MOUTH EVERY DAY TAKE ONE TABLET BY MOUTH EVERY DAY SOLD: 06/20/2020 [facility] 100 mg 01/20/2020 12:00:00 AM EDT tablet extended release 24 hr 30 TAKE ONE TABLET BY MOUTH EVERY DAY TAKE ONE TABLET BY MOUTH EVERY DAY SOLD: 04/23/2020 [facility] 100 mg 01/20/2020 12:00:00 AM EDT tablet extended release 24 hr 30 TAKE ONE TABLET BY MOUTH EVERY DAY TAKE ONE TABLET BY MOUTH EVERY DAY SOLD: 08/25/2020 [facility] 100 mg 01/20/2020 12:00:00 AM EDT tablet extended release 24 hr 30 TAKE ONE TABLET BY MOUTH EVERY DAY TAKE ONE TABLET BY MOUTH EVERY DAY SOLD: 02/22/2020 [facility] 100 mg 01/20/2020 12:00:00 AM EDT tablet extended release 24 hr 30 TAKE ONE TABLET BY MOUTH EVERY DAY TAKE ONE TABLET BY MOUTH EVERY DAY SOLD: 07/23/2020 [facility] 40 mg 11/26/2019 12:00:00 AM EDT capsule,delayed release (DR/EC) 30 TAKE ONE CAPSULE BY MOUTH EVERY DAY TAKE ONE CAPSULE BY MOUTH EVERY DAY SOLD: 04/23/2020 [facility] Esomeprazole 40 MG Delayed Release Oral Capsule ESOMEPRAZOLE MAGNESIUM 11/26/2019 12:00:00 AM EDT capsule,delayed release(DR/EC) 30 TAKE ONE CAPSULE BY MOUTH EVERY DAY TAKE ONE CAPSULE BY MOUTH EVERY DAY SOLD: 01/24/2020 [facility] Esomeprazole 40 MG Delayed Release Oral Capsule ESOMEPRAZOLE MAGNESIUM 11/26/2019 12:00:00 AM EDT capsule,delayed release(DR/EC) 30 TAKE ONE CAPSULE BY MOUTH EVERY DAY TAKE ONE CAPSULE BY MOUTH EVERY DAY SOLD: 02/22/2020 [facility] Esomeprazole 40 MG Delayed Release Oral Capsule ESOMEPRAZOLE MAGNESIUM 11/26/2019 12:00:00 AM EDT capsule,delayed release(DR/EC) 30 TAKE ONE CAPSULE BY MOUTH EVERY DAY TAKE ONE CAPSULE BY MOUTH EVERY DAY SOLD: 11/28/2019 [facility] 40 mg 11/26/2019 12:00:00 AM EDT capsule,delayed release (DR/EC) 30 TAKE ONE CAPSULE BY MOUTH EVERY DAY TAKE ONE CAPSULE BY MOUTH EVERY DAY SOLD: 03/26/2020 [facility] Esomeprazole 40 MG Delayed Release Oral Capsule ESOMEPRAZOLE MAGNESIUM 11/26/2019 12:00:00 AM EDT capsule,delayed release(DR/EC) 30 TAKE ONE CAPSULE BY MOUTH EVERY DAY TAKE ONE CAPSULE BY MOUTH EVERY DAY SOLD: 12/27/2019 [facility] 25 mg 10/31/2019 12:00:00 AM EDT tablet 60 TAKE ONE TABLET BY MOUTH TWICE A DAY FOR DIZZINESS TAKE ONE TABLET BY MOUTH TWICE A DAY FOR DIZZINESS ASHLEY [facility] Meclizine Hydrochloride 25 MG Oral Tablet MECLIZINE HCL 10/31/2019 12:00:00 AM EDT tablet 60 TAKE ONE TABLET BY MOUTH TWI CE A DAY FOR DIZZINESS TAKE ONE TABLET BY MOUTH TWICE A DAY FOR DIZZINESS SOLD: 12/27/2019 [facility] 100 mg 10/04/2019 12:00:00 AM EDT tablet 30 TAKE ONE TABLET BY MOUTH AT BEDTIME TAKE ONE TABLET BY MOUTH AT BEDTIME SOLD: 12/27/2019 [facility] 100 mg 10/04/2019 12:00:00 AM EDT tablet 30 TAKE ONE TABLET BY MOUTH AT BEDTIME TAKE ONE TABLET BY MOUTH AT BEDTIME SOLD: 02/22/2020 [facility] 100 mg 10/04/2019 12:00:00 AM EDT tablet 30 TAKE ONE TABLET BY MOUTH AT BEDTIME TAKE ONE TABLET BY MOUTH AT BEDTIME SOLD: 11/28/2019 [facility] 100 mg 10/04/2019 12:00:00 AM EDT tablet 30 TAKE ONE TABLET BY MOUTH AT BEDTIME TAKE ONE TABLET BY MOUTH AT BEDTIME SOLD: 01/24/2020 [facility] Hydroxychloroquine Sulfate 200 MG Oral Tablet HYDROXYCHLOROQ UINE SULFATE 08/31/2019 12:00:00 AM EDT tablet 30 TAKE ONE TABLE T BY MOUTH EVERY DAY TAKE ONE TABLET BY MOUTH EVERY DAY SOLD: 06/20/2020 [facility] Hydroxychloroquine Sulfate 200 MG Oral Tablet HYDROXYCHLOROQ UINE SULFATE 08/31/2019 12:00:00 AM EDT tablet 30 TAKE ONE TABLE T BY MOUTH EVERY DAY TAKE ONE TABLET BY MOUTH EVERY DAY SOLD: 12/27/2019 [facility] Hydroxychloroquine Sulfate 200 MG Oral Tablet HYDROXYCHLOROQ UINE SULFATE 08/31/2019 12:00:00 AM EDT tablet 30 TAKE ONE TABLE T BY MOUTH EVERY DAY TAKE ONE TABLET BY MOUTH EVERY DAY SOLD: 01/24/2020 [facility] Hydroxychloroquine Sulfate 200 MG Oral Tablet HYDROXYCHLOROQ UINE SULFATE 08/31/2019 12:00:00 AM EDT tablet 30 TAKE ONE TABLE T BY MOUTH EVERY DAY TAKE ONE TABLET BY MOUTH EVERY DAY SOLD: 07/23/2020 [facility] 25 mg 08/31/2019 12:00:00 AM EDT tablet 30 TAKE ONE TABLET BY MOUTH EVERY DAY TAKE ONE TABLET BY MOUTH EVERY DAY SOLD: 12/27/2019 [facility] Hydroxychloroquine Sulfate 200 MG Oral Tablet HYDROXYCHLOROQ UINE SULFATE 08/31/2019 12:00:00 AM EDT tablet 30 TAKE ONE TABLE T BY MOUTH EVERY DAY TAKE ONE TABLET BY MOUTH EVERY DAY SOLD: 02/22/2020 [facility] Hydroxychloroquine Sulfate 200 MG Oral Tablet HYDROXYCHLOROQ UINE SULFATE 08/31/2019 12:00:00 AM EDT tablet 30 TAKE ONE TABLE T BY MOUTH EVERY DAY TAKE ONE TABLET BY MOUTH EVERY DAY SOLD: 08/25/2020 [facility] Hydroxychloroquine Sulfate 200 MG Oral Tablet HYDROXYCHLOROQ UINE SULFATE 08/31/2019 12:00:00 AM EDT tablet 30 TAKE ONE TABLE T BY MOUTH EVERY DAY TAKE ONE TABLET BY MOUTH EVERY DAY SOLD: 04/23/2020 [facility] 25 mg 08/31/2019 12:00:00 AM EDT tablet 30 TAKE ONE TABLET BY MOUTH EVERY DAY TAKE ONE TABLET BY MOUTH EVERY DAY SOLD: 11/28/2019 [facility] Hydroxychloroquine Sulfate 200 MG Oral Tablet HYDROXYCHLOROQ UINE SULFATE 08/31/2019 12:00:00 AM EDT tablet 30 TAKE ONE TABLE T BY MOUTH EVERY DAY TAKE ONE TABLET BY MOUTH EVERY DAY SOLD: 03/26/2020 [facility] Hydroxychloroquine Sulfate 200 MG Oral Tablet HYDROXYCHLOROQ UINE SULFATE 08/31/2019 12:00:00 AM EDT tablet 30 TAKE ONE TABLE T BY MOUTH EVERY DAY TAKE ONE TABLET BY MOUTH EVERY DAY SOLD: 05/21/2020 [facility] 25 mg 08/31/2019 12:00:00 AM EDT tablet 30 TAKE ONE TABLET BY MOUTH EVERY DAY TAKE ONE TABLET BY MOUTH EVERY DAY SOLD: 01/24/2020 [facility] Hydroxychloroquine Sulfate 200 MG Oral Tablet HYDROXYCHLOROQ UINE SULFATE 08/31/2019 12:00:00 AM EDT tablet 30 TAKE ONE TABLE T BY MOUTH EVERY DAY TAKE ONE TABLET BY MOUTH EVERY DAY SOLD: 11/28/2019 [facility] 20 mg 07/29/2019 12:00:00 AM EDT tablet 30 TAKE ONE TABLET BY MOUTH EVERY DAY TAKE ONE TABLET BY MOUTH EVERY DAY SOLD: 03/26/2020 [facility] Famotidine 20 MG Oral Tablet FAMOTIDINE 07/29/2019 12:00:00 AM EDT tab let 30 TAKE ONE TABLET BY MOUTH EVERY DAY TAKE ONE TABLET BY MOUTH EVERY DAY SOLD: 04/23/2020 [facility] 20 mg 07/29/2019 12:00:00 AM EDT tablet 30 TAKE ONE TABLET BY MOUTH EVERY DAY TAKE ONE TABLET BY MOUTH EVERY DAY SOLD: 06/20/2020 [facility] 20 mg 07/29/2019 12:00:00 AM EDT tablet 30 TAKE ONE TABLET BY MOUTH EVERY DAY TAKE ONE TABLET BY MOUTH EVERY DAY SOLD: 02/22/2020 [facility] Famotidine 20 MG Oral Tablet FAMOTIDINE 07/29/2019 12:00:00 AM EDT tab let 30 TAKE ONE TABLET BY MOUTH EVERY DAY TAKE ONE TABLET BY MOUTH EVERY DAY SOLD: 05/21/2020 [facility] 20 mg 07/29/2019 12:00:00 AM EDT tablet 30 TAKE ONE TABLET BY MOUTH EVERY DAY TAKE ONE TABLET BY MOUTH EVERY DAY SOLD: 01/24/2020 [facility] Famotidine 20 MG Oral Tablet FAMOTIDINE 07/29/2019 12:00:00 AM EDT tab let 30 TAKE ONE TABLET BY MOUTH EVERY DAY TAKE ONE TABLET BY MOUTH EVERY DAY SOLD: 07/23/2020 [facility] 100 mg 02/15/2019 12:00:00 AM EST tablet extended release 24 hr 30 TAKE ONE TABLET BY MOUTH EVERY DAY TAKE ONE TABLET BY MOUTH EVERY DAY SOLD: 12/27/2019 [facility] 100 mg 02/15/2019 12:00:00 AM EST tablet extended release 24 hr 30 TAKE ONE TABLET BY MOUTH EVERY DAY TAKE ONE TABLET BY MOUTH EVERY DAY SOLD: 11/28/2019 [facility] Insurance Providers Payer name Policy type / Coverage type Policy ID Covered alliance party ID Covered alliance party's relationship to erazo Policy Erazo Plan Information Medicare Natl Govt Servic Medicare Primary [id number] Self [id number] MEDICARE [id number] Nicole [id number] A Medicare Natl Govt Servic Medicare Primary [id number] Self [id number] Medicare Natl Govt Servic Medicare Primary [id number] Self [id number] Medicare Natl Govt Servic Medicare Primary [id number] Self Medicare Natl Govt Servic Medicare Primary [id number] Self [id number] Medicare C [id number] SELF [id number] A Medicare Natl Govt Servic Medicare Primary [id number] Self [id number] MEDICAID [id number] Nicole [id number] DME Jurisdiction A [facility] C [id number] SELF [id number] AARP [facility] Supplemental F [id number] SELF [id number] [facility] AARP Supplemental F [id number] SELF [id number] [facility] Opt Medigap Part B [id number] Self [id number] [facility] Opt Medigap Part B Plan F [id number] Self Plan F Todays Option Medicare Commercial [id number] Self [id number] [employer] Commercial [id number] Self [id number] [facility] Opt Medigap Part B [id number] Self [id number] 11 [facility] Opt Medigap Part B [id number] Self [id number] 11 [employer] Opt Medigap Part B [id number] Self [id number] 11 [employer] Opt Medigap Part B [id number] Self [id number] MEDICAID [facility] COMPUTER S [facility] [id number] A [id number] AARP HE[employer] CARE OPTIONS [id number] SP [id number] TODAYS OPTIONS [id number] SP [id number] Todays Option Medicare Commercial Premier 100 PFFS [id number] Self Premier 100 PFFS Medicaid Medigap Part B [id number] Self 1 1 Today's Option Medicare Commercial [id number] Self Medicaid [place] Medigap Part B [id number] Self Medicare [facility] Medicare Primary [id number] Self Medicaid Medicaid [id number] Self Medicare Medicare Primary [id number] Self [place] 3 [id number] U SELF PAY 2 UNAVAILABLE 1 UNAVAILA BLE [facility] MEDICARE SOLUTIO 11 [id number] 1 [id number] MEDICARE [id number] SP [id number] MEDICARE COMPLETE [id number] SP [id number] HUMANA MEDICARE [facility] [id number] A [id number] AARP O [id number] S [id number] MEDICARE C [id number] S [id number] A MEDICAID M [id number] S [id number] AARP HE[employer] CARE OPTIONS [id number] SP [id number] [place] [id number] SP [id number] MEDICARE [id number] SP [id number] A Medicaid Medigap Part B [id number] Self [id number] MEDICAID [id number] SP [id number] Medicaid Medigap Part B [id number] Self [id number] [place] Medigap Part B [id number] Self [id number] [employer] Options Medigap Part B [id number] Self [id number] Medicare Natl Gov't Servi Medicare Primary [id number] Self [id number] MEDICARE [id number] SP [id number] A Todays Option Medicare Commercial [id number] Self [id number] Medicaid Medigap Part B [id number] Self [id number] Todays Option Medicare Commercial [id number] Self [id number] Medicaid Medigap Part B [id number] Self [id number] Medicaid Medigap Part B [id number] Self [id number] Todays Option Medicare Commercial [id number] Self [id number] Problems, Conditions, and Diagnoses Code Display Name Description Problem Type Effective Dates Data Source(s) poss infection sores on foot poss infection sores on f oot Diagnosis 10/10/2020 05:00:00 AM EDT Dew[facility] Idalmis - [facility] [id number] Unspecified open wound, left foot, initi al encounter Unspecified open wound, left foot, initial encounter Diagnosis 10/10/2020 05:00:00 AM E DT [facility]itt Idalmis - [facility] Surgeries/Procedures Procedure Description Date Indications Data Source(s) OFFICE OUTPATIENT VISIT 25 MINUTES 09/10/2020 12:00:00 AM EDT [facility] ([facility]) OFFICE OUTPATIENT VISIT 25 MINUTES 05/21/2020 12:00:00 AM EST [facility] ([facility]) OFFICE OUTPATIENT VISIT 15 MINUTES 03/20/2020 12:00:00 AM EST [facility] ([facility]) Results ID Date Data Source [id number] 10/11/2020 08:09:48 AM EDT Dewitt Elisa mathur - [facility] PATRICIA CORNEJOPATIENT IDENTIFICATION:[facility] Site: [facility] Name: PATRICIA CORNEJOMedical Record Number: [id number] Of : 1945CHIEF COMPLAINT:patient here with sores on b/l feet, per patients dtr. Shraddha patient is felicia, dtr concerned shemay have infection. Patient not sure of all her medications she is takingHISTORY OF PRESENT ILLNESS:Patient is a 75-year-old female presents walk-in clinic today with daughterwith sores of feetand legs. Patient is staying with her daughter over the next several weeks,visiting from [facility]. 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 She has multiple scabbedwounds on the upper aswell as lower extremities. She is known to have dry skin. Daughter noticedthat a wound on thefoot appears to be more red than previously. No fevers have been noted. No discharge. Deniesdiabetes.REVIEW OF SYSTEMS:See HPI for additional pertinent positives. General: Denies fatigue, fever, chills, loss of appetite, or unusual wtloss/gainNeuro: Denies any focal numbness, paresthesias or weakness.Skin: + wound. No jaundiceHeme/Lymph: No excessive bruising, bleeding or lymphadenopathy.PROBLEM LIST/PAST MEDICAL HISTORY:OngoingNo qualifying dataHistoricalNo qualifying dataALLERGIES:No Known Medication AllergiesHome Medications:Home Medications (3) Activemeclizine (meclizine 25 mg oral tablet) 25 mg = 1 tab(s), PRN, PO (oral),tid, Taking asprescribed; dose verifiedmupirocin topical (Bactroban 2% topical ointment) 1 savanah, Topical, tidsulfamethoxazole-trimethoprim (Bactrim DS 800 mg-160 mg oral tablet) 1tab(s), PO (oral), bidPHYSICAL EXAM:VITALS:T: 36.1 C (Temporal Artery) T: 97 F (Temporal Artery) HR:88 RR: 16 BP: 150 /92HT: 152 cm WT: 88 kg BMI: 38.1 General: Patient awake, alert, no acute distress. Seated on exam table.Extremities: No edema, cyanosis or clubbing. Pedal pulses intact.Musculoskeletal: FROM lower extremities. No obvious joint deformities.Skin: Multiple scabbed areas upper and lower extremities. Leftfoot overlying distal firstmetatarsal region reveals ulceration approximately 1 cm x 1 cm in size witha pink erythematousbase with mild surrounding erythema extending approximately 2 cm eachdirection from the wound.No discharge noted. Culture of the wound was performed.Neurological: alert and oriented x 3. No focal sensory deficits. Wound cleansed by nursing and petroleum infused dressing placed over thewound prior todischarge.ASSESSMENT AND PLAN:1. Wound of left foot Condition discussed in patient education materials provided Discussed cleansing with antibacterial soap and applying antibiotic ointmentand clean dressingat least twice daily.Ordered oral antibiotic. Take with food.Yogurt or probiotic daily to help prevent side effects from medication. Discussed avoidance of picking of wounds.Needs to follow-up with PCP as soon as arrival back to home.Discussed if fevers or red streaking up the leg or other worsening of symptomsrecommend ERevaluation. Patient and daughter expressed understanding and all questions answered. Patient is staying with daughter for the next several weeks. Call results todiana Henderson at [phone]. Ordered:mupirocin topical, 1 savanah, Topical, tid, # 30 g, Maintenance, Pharmacy:[id number], 1 appTopical tidsulfamethoxazole-trimethoprim, 1 tab(s), PO (oral), bid, # 14 tab(s),Maintenance, Pharmacy: [id number], 1 tab(s) PO (oral) bid,x7 day(s)Culture Routine Medications Affected this Encounter: Medication Changes/Renewals This Visit Status sulfamethoxazole-trimethoprim 1 tab(s), PO (oral), Ordered bid, for 7 day(s), 14 tab(s) mupirocin topical 1 savanah, Topical, tid, 30 g Ordered Added Patient Education Wound Care Patient InstructionsWash area with antibacterial soap and water. Apply mupirocin cream anddressing. Do this twicedaily. Antibiotic ordered. Please complete course of antibiotic even ifsymptoms improve.Yogurt or probiotic intake is encouraged to prevent side effects of theantibiotic. Use Tylenol or ibuprofen if needed for pain.Hand washing is always encouraged. Follow up with your primary care provider if symptoms persist.For significant worsening of symptoms, such as if fevers develop or redstreaking up the leg[facility].Follow-Up Appointments With: Follow up with primary care providerAddress: , , ,When: 5 to 7 days, only if needed This document was authenticated by Lisette Gilliland PA PA on 108:09 AM Name Value Range Interpretation Code Description Data Cathy rce(s) Supporting Document(s) ID Date Data Source [id number] 10/13/2020 09:26:06 AM EDT Dewitt Elisa mathur - [facility] Name PATRICIA CORNEJO hdate 1945Sex FEMALE Age 75 yearsPatient Acct. No. [id number] [facility] Phys[facility] Lisette Gilliland PAPrimary Care Physician PCP, NOT ON FILEMicrobiologyS = Susceptible I = Intermediate R = Resistant N/A = Not U = UninterpretableApplicableProcedure: Culture Routine [f1] Wound Body Site: Foot LeftCollected Date/Time: 10/10/2020 11:01 EDT Received Date/Time: 10/11/2020 11:21 EDTStart Date/Time: 10/11/2020 11:21 EDT Free Text Source:Ordering Physician: Lisette Gilliland PAFINAL REPORTSFinal Report [] Verified Date/Time: 10/13/2020 09:26 EDTHeavy Growth Staphylococcus aureusSTAINSGram Stain Report [] Verified Date/Time: 10/11/2020 15:20 EDTFew Red Blood CellsFew Gram Positive CocciSUSCEPTIBILITY RESULTSStaphylococcus aureusAntibiotic SHANAE Dilutn SHANAE InterpCefazolin SusceptibleClindamycin <=0.25 SusceptibleErythromycin <=0.25 SusceptibleGentamicin <=0.5 SusceptibleOxacillin 0.5 SusceptiblePenicillin ResistantTrimethoprim/ <=10 SusceptibleSulfaVancomycin 1 SusceptiblePerforming Locationsf1: This test was performed at:[facility], [address] [place] [address], [address] [place] [address] Name Value Range Interpretation Code Description Data Cathy rce(s) Supporting Document(s) ID Date Data Source [id number] 09/10/2020 12:40:00 PM EDT [facility] ([facility]) Name Value Range Interpretation Code Description Data Cathy rce(s) Supporting Document(s) Glucose [Mass/volume] in Serum or Plasma 97 mg/dL 74-99 [facility] ([facility]) 100-125 mg/dL PRE-DIABETES/FASTING >126 mg/dL DIABETES/FASTING Urea nitrogen [Mass/volume] in Serum or Plasma 20 mg/dL 7-18 [facility] ([facility]) Creatinine 1.0 mg/dL 0.6-1.3 [facility] ([facility]) Chloride [Moles/volume] in Serum or Plasma 102 meq/L 98-107 [facility] ([facility]) Sodium [Moles/volume] in Serum or Plasma 138 meq/L 136-145 [facility] ([facility]) Potassium [Moles/volume] in Serum or Plasma 4.4 meq/L 3.5-5.1 [facility] ([facility]) Carbon dioxide, total [Moles/volume] in Serum or Plasma 25 meq/L 21 -32 [facility] ([facility]) Calcium [Mass/volume] in Serum or Plasma 9.6 mg/dL 8.5-10.1 [facility] ([facility]) Alkaline phosphatase isoenzyme [Units/volume] in Serum or Pl asma 94 mg/dL 46-116 [facility] ([facility]) Total Bilirubin 0.3 mg/dL 0.2-1.0 [facility] ([facility]) Aspartate aminotransferase [Enzymatic activity/volume] in Serum or Plasma 16 U/L 15-37 [facility] ([facility] ) Albumin [Mass/volume] in Serum or Plasma 3.4 g/dL 3.4-5.0 [facility] ([facility]) Alanine aminotransferase [Enzymatic activity/volume] in Seru m or Plasma 17 U/L 12-78 [facility] ([facility]) A/G Ratio 0.89 CALC 1.00-1.90 [facility]) Proteinase 3 Ab [Units/volume] in Serum 7.2 g/dL 6.4-8.2 [facility] ([facility]) Glomerular filtration rate/1.73 sq M pre dicted among blacks [Volume Rate/Area] in Serum or Plasma by Creatinine-based formula (MDRD) Laboratory test result [facility] <content>CHRONIC KIDNEY DISEASE STAGING PER NKF</content>
<content></content>
<content>STAGE I & II GFR >= 60 NORMAL TO MILDLY DECREASED</content>
<content>STAGE III GFR 30-59 MODERATELY DECREASED</content>
<content>STAGE IV GFR 15-29 SEVERELY DECREASED</content>
<content>STAGE V GFR <15 VERY LITTLE GFR LEFT</content>
<content>ESRD GFR <15 ON BILLET CHECKER</content>
<content></content> Glomerular filtration rate/1.73 sq M pre dicted among non-blacks [Volume Rate/Area] in Serum or Plasma by Creatinine-based formula (MDRD) 54 mL/min [facility] ID Date Data Source [id number] 09/10/2020 12:40:00 PM EDT [facility] ([facility]) Name Value Range Interpretation Code Description Data Cathy rce(s) Supporting Document(s) Erythrocytes [#/volume] in Blood by Automated count 4.22 x10*6/UL 4.2 0-6.30 [facility] Leukocytes [#/volume] in Blood by Automated count 6.9 x10*3/UL 4.1-10 .9 [facility] ([facility]) Hemoglobin [Mass/volume] in Blood 12.0 g/dL 12.0-18.0 [facility] ([facility]) Hematocrit [Volume Fraction] of Blood by Automated count 36.2 % 3 7.0-51.0 [facility] MCHC 33.1 g/dL 31.0-38.0 [facility] MCV 85.9 fL 80.0-97.0 [facility] MCH 28.4 pg 26.0-32.0 [facility] Erythrocyte distribution width [Ratio] by Automated count 13.9 % 11.6-13.7 [facility] ([facility]) Platelets [#/volume] in Blood by Automated count 272 x10*3/UL 140-440 [facility] ([facility]) MPV 7.5 FL 7.8-11.0 [facility] Lymph % 18.8 % 10.0-58.5 [facility] Mid % 6.0 % 1.7-9.3 [facility] Neut % 75.2 % 37.0-92.0 [facility] ([facility]) Mid # 0.4 x10*3/UL 0.1-0.6 [facility] ([facility]) Neut # 5.2 x10*3/UL 2.0-7.8 [facility] ([facility]) Lymph # 1.3 x10*3/UL 0.6-4.1 [facility] ([facility]) ID Date Data Source [id number] 05/21/2020 08:20:00 AM EST [facility] ([facility]) Name Value Range Interpretation Code Description Data Cathy rce(s) Supporting Document(s) Thyrotropin [Units/volume] in Serum or Plasma by Detec tion limit <= 0.05 mIU/L 0.53 uIU/mL 0.36-3.74 [facility] ([facility] ) ID Date Data Source [id number] 05/21/2020 08:20:00 AM EST [facility] ([facility]) Name Value Range Interpretation Code Description Data Cathy rce(s) Supporting Document(s) Cholesterol [Mass/volume] in Serum or Plasma 197 mg/dL 131-200 [facility] ([facility]) Triglyceride [Mass/volume] in Serum or Plasma 189 mg/dL 30-150 [facility] [facility] Cholesterol in HDL [Mass/volume] in Serum or Plasma 54 mg/dL 35-60 [facility] ([facility]) Cholesterol in LDL [Mass/volume] in Serum or Plasma by calcu lation 105 CALC 50-159 [facility] ([facility]) ID Date Data Source [id number] 05/21/2020 08:20:00 AM EST [facility] ([facility]) Name Value Range Interpretation Code Description Data Cathy rce(s) Supporting Document(s) Glucose [Mass/volume] in Serum or Plasma 157 mg/dL 74-99 [facility] ([facility]) 100-125 mg/dL PRE-DIABETES/FASTING >126 mg/dL DIABETES/FASTING Urea nitrogen [Mass/volume] in Serum or Plasma 32 mg/dL 7-18 [facility] ([facility]) NOTE: bun,alk phos,albumin,magnesium verified Creatinine 1.3 mg/dL 0.6-1.3 [facility] ([facility]) Sodium [Moles/volume] in Serum or Plasma 138 meq/L 136-145 [facility] ([facility]) Potassium [Moles/volume] in Serum or Plasma 4.3 meq/L 3.5-5.1 [facility] ([facility]) Chloride [Moles/volume] in Serum or Plasma 102 meq/L 98-107 [facility] ([facility]) Carbon dioxide, total [Moles/volume] in Serum or Plasma 26 meq/L 21 -32 [facility] ([facility]) Alkaline phosphatase isoenzyme [Units/volume] in Serum or Pl asma 119 mg/dL 46-116 [facility] ([facility]) Calcium [Mass/volume] in Serum or Plasma 8.9 mg/dL 8.5-10.1 [facility] ([facility]) Aspartate aminotransferase [Enzymatic activity/volume] in Serum or Plasma 17 U/L 15-37 [facility] ([facility] ) Total Bilirubin 0.2 mg/dL 0.2-1.0 [facility] ([facility]) Alanine aminotransferase [Enzymatic activity/volume] in Seru m or Plasma 12 U/L 12-78 [facility] ([facility]) Albumin [Mass/volume] in Serum or Plasma 3.3 g/dL 3.4-5.0 [facility] ([facility]) Proteinase 3 Ab [Units/volume] in Serum 6.9 g/dL 6.4-8.2 [facility] ([facility]) A/G Ratio 0.92 CALC 1.00-1.90 [facility]) Glomerular filtration rate/1.73 sq M pre dicted among blacks [Volume Rate/Area] in Serum or Plasma by Creatinine-based formula (MDRD) 49 mL/min [facility] ([facility]) <content>CHRONIC KIDNEY DISEASE STAGING PER NKF</content>
<content></content>
<content>STAGE I & II GFR >= 60 NORMAL TO MILDLY DECREASED</content>
<content>STAGE III GFR 30-59 MODERATELY DECREASED</content>
<content>STAGE IV GFR 15-29 SEVERELY DECREASED</content>
<content>STAGE V GFR <15 VERY LITTLE GFR LEFT</content>
<content>ESRD GFR <15 ON BILLET CHECKER</content>
<content></content> Glomerular filtration rate/1.73 sq M pre dicted among non-blacks [Volume Rate/Area] in Serum or Plasma by Creatinine-based formula (MDRD) 40 mL/min [facility] ([facility]) ID Date Data Source [id number] 05/21/2020 08:20:00 AM EST [facility] ([facility]) Name Value Range Interpretation Code Description Data Cathy rce(s) Supporting Document(s) Magnesium 1.3 mg/dL 1.8-2.4 [facility] ([facility]) ID Date Data Source [id number] 05/21/2020 08:20:00 AM EST [facility] ([facility]) Name Value Range Interpretation Code Description Data Cathy rce(s) Supporting Document(s) Hemoglobin A1c/Hemoglobin.total in Blood 6.0 % [facility] ([facility]) Lab Result Notes: Pre-Diabetes 5.7 - 6.4 % Diabetes = or > 6.5% Glucose mean value [Mass/volume] in Blood Estimated fr om glycated hemoglobin 125 mg/dL 60-110 [facility] ID Date Data Source [id number] 05/21/2020 08:20:00 AM EST [facility] ([facility]) Name Value Range Interpretation Code Description Data Cathy rce(s) Supporting Document(s) Magnesium, Serum Laboratory test result [facility] Hemoglobin A1c/Hemoglobin.total in Blood Laboratory test result [facility] ([facility]) ID Date Data Source [id number] 05/21/2020 08:19:00 AM EST [facility] ([facility]) Name Value Range Interpretation Code Description Data Cathy rce(s) Supporting Document(s) Leukocytes [#/volume] in Blood by Automated count 6.8 x10*3/UL 4.1-10 .9 [facility] ([facility]) NOTE: CBC VERIFIED Erythrocytes [#/volume] in Blood by Automated count 3.99 x10*6/UL 4.2 0-6.30 [facility] ([facility]) MCV 85.4 fL 80.0-97.0 [facility]) Hemoglobin [Mass/volume] in Blood 11.6 g/dL 12.0-18.0 [facility] ([facility]) Hematocrit [Volume Fraction] of Blood by Automated count 34.1 % 3 7.0-51.0 [facility] ([facility]) MCHC 34.1 g/dL 31.0-38.0 [facility] ([facility]) MCH 29.1 pg 26.0-32.0 [facility] ([facility]) Erythrocyte distribution width [Ratio] by Automated count 13.8 % 11.6-13.7 [facility] ([facility]) Platelets [#/volume] in Blood by Automated count 277 x10*3/UL 140-440 [facility] ([facility]) MPV 7.9 FL 7.8-11.0 [facility] ([facility]) Lymph % 24.8 % 10.0-58.5 [facility] ([facility]) Mid % 6.4 % 1.7-9.3 [facility] ([facility]) Neut % 68.8 % 37.0-92.0 [facility] ([facility]) Lymph # 1.6 x10*3/UL 0.6-4.1 [facility] ([facility]) Mid # 0.6 x10*3/UL 0.1-0.6 [facility] ([facility]) Neut # 4.6 x10*3/UL 2.0-7.8 [facility] ([facility]) ID Date Data Source [id number] 02/11/2020 01:54:00 AM EST [facility] ([facility]) Name Value Range Interpretation Code Description Data Cathy rce(s) Supporting Document(s) Erythrocyte sedimentation rate by Westergren method 62 mm/hr 0-30 [facility] ([facility]) Urate [Mass/volume] in Serum or Plasma 7.7 mg/dL 2.6-6.0 [facility] ([facility]) ID Date Data Source [id number] 02/11/2020 01:54:00 AM EST [facility] ([facility]) Name Value Range Interpretation Code Description Data Cathy rce(s) Supporting Document(s) White Blood Count 14.6 10 4.0-10.0 [facility] ([facility]) Red Blood Count 4.09 10 4.00-5.40 [facility] ([facility]) Hemoglobin 11.7 g/dL 12.0-15.5 [facility]) Hematocrit 36.4 % 36.0-47.0 [facility] ([facility]) Mean Corpuscular Volume 89.0 fl 80.0-96.0 [facility] ([facility]) Mean Corpuscular HGB Conc 32.1 g/dL 32.0-36.5 [facility] NT ([facility]) Mean Corpuscular Hemoglobin 28.6 pg 27.0-33.0 [place] [facility] ([facility]) Platelet Count, Automated 243 10 150-450 [facility] NT ([facility]) Neutrophils % 79.9 % 36.0-66.0 [facility] ([facility]) Red Cell Distribution Width 14.3 % 11.5-14.5 ME [facility] ([facility]) O'Brien % 10.4 % 0.0-5.0 [facility]) Eos % 0.2 % 0.0-3.0 [facility]) Lymph % 8.9 % 24.0-44.0 [facility]) Immature Granulocyte % 0.3 % 0-3.0 [facility] ([facility]) Baso % 0.3 % 0.0-1.0 [facility]) Nucleated Red Blood Cell % 0.0 % 0-0 MED ENT ([facility]) Lymph # 1.3 10 1.5-5.0 [facility]) Neutrophils # 11.6 10 1.5-8.5 [facility] ([facility]) Baso # 0.0 10 0.0-0.2 [facility]) Eos # 0.0 10 0.0-0.5 [facility]) O'Brien # 1.5 10 0.0-0.8 [facility]) Procedure Social History No Information Vital Signs ID Date Data Source [id number] Name Value Range Interpretation Code Description Data Source(s) Body height 59.8 [in_i] 59.8 [in_i] [facility] - [facility] Result Comment: Result placed secondary from cm, converted to Inches Body weight Measured 194 lb 0 oz 194 lb 0 oz As cension [facility] - [facility] Result Comment: Result placed secondary from kg, converted to lbs Systolic blood pressure 150 mm[Hg] Above high normal 150 m m[Hg] [facility] - [facility] Diastolic blood pressure 92 mm[Hg] Above high normal 92 m m[Hg] [facility] - [facility] Heart rate 88 /min Normal (applies to non-numeric resul ts) 88 /min [facility] - [facility] Respiratory rate 16 /min Normal (applies to non-numeric results) 16 /min [facility] - [facility] Systolic blood pressure 134 mm[Hg] 134 mm[Hg] M [facility] ([facility]) Heart rate 72 /min 72 /min [facility] ([facility]) Body height 60 [in_i] 60 [in_i] [facility] ([facility]) 5'0" Body weight 190.00 [lb_av] 190.00 [lb_av] [facility] T ([facility]) Body mass index (BMI) [Ratio] 37.1 kg/m2 37.1 k g/m2 [facility] ([facility]) Diastolic blood pressure 80 mm[Hg] 80 mm[Hg] [facility] Systolic blood pressure 130 mm[Hg] 130 mm[Hg] [facility] Diastolic blood pressure 78 mm[Hg] 78 mm[Hg] [facility] ([facility]) Heart rate 80 /min 80 /min [facility]) Body height 60 [in_i] 60 [in_i] [facility] 5'0" Body weight 191.00 [lb_av] 191.00 [lb_av] [facility] T ([facility]) Body mass index (BMI) [Ratio] 37.3 kg/m2 37.3 k g/m2 [facility] Systolic blood pressure 134 mm[Hg] 134 mm[Hg] [facility]) Diastolic blood pressure 80 mm[Hg] 80 mm[Hg] [facility], [facility]) Heart rate 86 /min 86 /min [facility], [facility]) Respiratory [facility] 16 /min 16 /min [facility] ( [facility], [facility]) Body weight 175.00 [lb_av] 175.00 [lb_av] [facility] T ([facility], [facility]) Body height 60 [in_i] 60 [in_i] [facility], [facility]) 5'0" Oxygen saturation in Arterial blood by Pulse oximetry 97 % 97 % [facility], [facility]) Body mass index (BMI) [Ratio] 34.2 kg/m2 34.2 k g/m2 [facility], [facility]) Body temperature 98.4 [degF] 98.4 [degF] [facility] ([facility], [facility]) Heart rate 108 /min 108 /min [facility] ([facility]) Heart rate 100 /min 100 /min [facility] ([facility], [facility]) Respiratory rate 20 /min 20 /min [facility] ( [facility]) Oxygen saturation in Arterial blood by Pulse oximetry 99 % 99 % [facility] ([facility]) Body temperature 98.5 [degF] 98.5 [degF] [facility] ([facility]) Body weight 194.00 [lb_av] 194.00 [lb_av] [facility] T ([facility], [facility]) Systolic blood pressure 136 mm[Hg] 136 mm[Hg] [facility] ([facility]) Diastolic blood pressure 82 mm[Hg] 82 mm[Hg] [facility] ([facility]) Body height 60 [in_i] 60 [in_i] [facility] ([facility]) 5'0" Body mass index (BMI) [Ratio] 37.9 kg/m2 37.9 k g/m2 [facility] ([facility]) Patient Treatment Plan of Care Planned Activity Planned Date Details Description Data Source (s) Bactroban 2% topical ointment 10/10/2020 08:09:00 PM EDT [facility], [facility], [facility] Bactrim DS 800 mg-160 mg oral tablet 10/10/2020 08:09:00 PM EDT [facility], [facility] Meclizine Hydrochloride 25 MG Oral Tablet 10/10/2020 07:53:00 PM ED T [facility] - [facility], [facility]
[2021-01-15 00:52] LABS: BASO # 0.1 10^3/uL (0.0-0.2); BASO % 0.7 % (0.0-1.0); EOS # 0.2 10^3/uL (0.0-0.5); EOS % 2.2 % (0.0-3.0); HEMOGLOBIN 10.9 g/dl (12.0-15.5); LYMPH # 2.3 10^3/uL (1.5-5.0); LYMPH % 27.5 % (24.0-44.0); MEAN CORPUSCULAR HEMOGLOBIN 27.2 pg (27.0-33.0); MEAN CORPUSCULAR HGB CONC 32.1 g/dl (32.0-36.5); MEAN CORPUSCULAR VOLUME 84.8 fl (80.0-96.0); MONO # 0.7 10^3/uL (0.0-0.8); MONO % 8.6 % (2.0-8.0); NEUTROPHILS # 5.1 10^3/uL (1.5-8.5); NEUTROPHILS % 60.8 % (36.0-66.0); PLATELET COUNT, AUTOMATED 331 10^3/uL (150-450); RED BLOOD COUNT 4.01 10^6/uL (4.00-5.40); WHITE BLOOD COUNT 8.3 10^3/uL (4.0-10.0)
[2021-01-15 01:02] LABS: INR 1.03; PROTHROMBIN TIME 13.9 SECONDS (12.7-14.5)
[2021-01-15 01:03] LABS: PARTIAL THROMBOPLASTIN TIME 30.2 SECONDS (25.9-37.0)
--- OUTSIDE RECORDS SUMMARY | 2021-01-15 01:07 | CCD ---
Author Author [facility] Organization [facility] Address Unknown Phone Unavailable Care Team Providers Care Ambulance Assistant Name Role Phone Restrepo, Marilou GREEN MEAT GRADER Unavailable Unavailable Restrepo, Marilou GREEN MEAT GRADER Unavailable Unavailable Restrepo, Marilou GREEN MEAT GRADER Unavailable Unavailable Restrepo, Marilou GREEN MEAT GRADER Unavailable Unavailable Restrepo, Marilou GREEN MEAT GRADER Unavailable Unavailable Restrepo, Marilou GREEN MEAT GRADER Unavailable Unavailable Restrepo, Marilou GREEN MEAT GRADER Unavailable Unavailable Restrepo, Marilou GREEN MEAT GRADER Unavailable Unavailable Restrepo, Marilou GREEN MEAT GRADER Unavailable Unavailable Restrepo, Marilou GREEN MEAT GRADER Unavailable Unavailable Restrepo, Marilou GREEN MEAT GRADER Unavailable Unavailable Restrepo, Marilou GREEN MEAT GRADER Unavailable Unavailable Restrepo, Marilou GREEN MEAT GRADER Unavailable Unavailable Ariela Ramos MD Unavailable Unavailable [...] Gilliland Unavailable Unavailable TEST, PROVIDER Unavailable Unavailable DARSHANA PA M LISETTE Unavailable [...] is protected by Article 27-F of the [facility] Public Health law. If you continue you may have access to information: Regarding HIV / AIDS; Provided by facilities licensed or operated by the [facility] Office of Mental Health; or Provided by the [facility] Office for People With Developmental Disabilities. If such information is present, then the following [facility] mandated warning applies: This information has [...] law may result in a fine or half-way sentence or both. A general authorization for [...] P Attender: PROVIDER TESTAdmitter: PROVIDER TEST P JOSE-PEW 10/10/2020 07:46:00 PM EDT [place] [facility] - [facility], [facility] Outpatient Attender: LISETTE GILLILANDAdmitter: LISETTE HO PEW-PEW 10/10/2020 05:00:00 AM EDT - 10/10/2020 05:00:00 AM EDT [place] [facility] - [facility] Patient discharged. Outpatient Ancillary<content styleCode=" Bold">OLLiza MEJIA Date(s): 10/10/20 - 10/11/20</content>
[address]
<content styleCode="Bold Underline">Encounter Diagnosis</content>
<content ID="[id number]">Unspecified open wound, left foot, initial encounter</content> (Discharge Diagnosis) -
<content ID="[id number]">Discharge Disposition: DSC to Home</content>
Attending Physician: Lisette Gilliland PA
Admitting Physician: Lisette Gilliland PA
Attender: GRICELDA GILLILANDAttender: Lsiette GillilandAdmitter: Lisette Gilliland [facility]-PEW 10/10/2020 05:00:00 AM EDT - 10/11/2020 11:59:59 PM EDT [place] [facility] - [facility] Outpatient Attender: Ed Otero 09/10 01:00:00 PM EDT [facility] ([facility] ) Outpatient Attender: Ed Otero 05/21 07:30:00 AM EST [facility] ([facility] ) Outpatient Attender: Marilou garza 05/07/2020 10:30:00 AM EST [facility] ([facility]) Outpatient Attender: PAT Otero 1 05/21/2019 02:20:00 PM EST [facility] ([facility] ) Outpatient Attender: Gwendolyn kay 01/24/2020 01:00:00 PM EDT [facility] ([facility] Medications Medication Brand [...] TWICE A DAY FOR DIZZINESS SOLD: 01/07/2021 [facility] Meclizine Hydrochloride 25 MG Oral Tablet MECLIZINE HCL 10/25/2020 12:00:00 AM EDT tablet 60 TAKE ONE TABLET BY MOUTH TWI CE A DAY FOR DIZZINESS TAKE ONE TABLET BY MOUTH TWICE A DAY FOR DIZZINESS SOLD: 10/29/2020 [facility] Bactrim DS 800 mg-160 mg oral tablet [id number] 10/10/2020 08:09:00 P M EDT 1.0 By Mouth active 1 tab(s), PO (oral), bid, # 14 tab(s), M aintenance, Pharmacy: [facility]/pharmacy #[id number], 1 tab(s) PO (oral) bid,x7 day(s) [place] [facility], [facility] Bactroban 2% topical ointment [id number] 10/10/2020 08:09:00 PM EDT 1.0 On Skin active 1 savanah, Topical, tid, # 30 g, Maintenance , Pharmacy: [facility]/pharmacy #[id number], 1 savanah Topical tid [facility] Meclizine Hydrochloride 25 MG Oral Tablet meclizine 25 mg oral tablet meclizine 25 mg oral tablet 10/10/2020 07:53:00 PM EDT 25.0 mg By Mouth active 25 mg = 1 tab(s), PO (oral), tid, PRN Dizziness, 0 Ref ill(s), Maintenance [place] [facility] - [facility] 100 mg 09/19/2020 12:00:00 AM EDT [...] HCL 05/21/2020 12:00:00 AM EST active [facility] ([facility]) 0.5 % 05/07/2020 12:00:00 AM EST [...] Mupirocin 05/07/2020 12:00:00 AM EST active [facility] ([facility]) Triamcinolone Acetonide 0.005 MG/MG Topical Ointment Triamci nolone Acetonide 05/07/2020 12:00:00 AM EST active [facility] ([facility]) 25 mg 05/07/2020 12:00:00 AM EST tablet [...] 03/20/2020 12:00:00 AM EST ORAL active [facility] ([facility]) Furosemide 20 MG Oral Tablet Furosemide 03/20/2020 12:00:00 AM EST ORAL active [facility] ([facility]) 20 mg 03/20/2020 12:00:00 AM [...] MOUTH DAILY FOR GOUT PAIN SOLD: 02/11/2020 [facility] Sulfamethoxazole 800 MG / Trimethoprim 160 [...] HCL 01/24/2020 12:00:00 AM EDT active [facility] ([facility]) Sulfamethoxazole 800 MG / Trimethoprim 160 MG Oral Tab let Sulfamethoxazole/Trimethoprim DS 01/24/2020 12:00:00 AM EDT ORAL completed [facility] ([facility]) Petrolatum 0.41 MG/MG Topical Ointment [Aquaphor] Aquaphor 01/24/2020 12:00:00 AM EDT completed [facility] ([facility]) Meclizine Hydrochloride 25 MG Oral Tablet MECLIZINE [...] TABLET BY MOUTH AT BEDTIME SOLD: 11/28/2019 [facility] 100 mg 10/04/2019 12:00:00 AM [...] type / Coverage type Policy ID Covered constitution party ID Covered constitution party's relationship to erazo Policy Erazo Plan Information Medicare Natl Govt Servic Medicare Primary [id number] Self [id number] MEDICARE [id number] Nicole [id number] A Medicare Natl Govt Servic Medicare Primary [id number] Self [id number] Medicare Natl Govt Servic Medicare Primary [id number] Self [id number] Medicare Natl Govt Servic Medicare Primary [id number] Self Medicare Natl Govt Servic Medicare Primary [id number] Self [id number] Medicare C [id number] SELF [id number] A Medicare Natl Govt Servic Medicare Primary [id number] Self [id number] MEDICAID [id number] Nicole [id number] DME Jurisdiction A [facility] C [id number] SELF [id number] [facility] Supplemental F [id number] SELF [id number] [facility] AARP Supplemental F [id number] SELF [id number] [facility] Opt Medigap Part B [id number] Self [id number] [facility] Opt Medigap Part B Plan F [id number] Self Plan F Todays Option Medicare Commercial [id number] Self [id number] [employer]/Todays Optmcr Commercial [id number] Self [id number] [facility] Opt Medigap Part B [id number] Self [id number] 11 [facility] Opt Medigap Part B [id number] Self [id number] 11 [facility] Opt Medigap Part B [id number] Self [id number] 11 [facility] [facility] Opt Medigap Part B [id number] Self [id number] 11 [place] COMPUTER S [facility] [id number] A [id number] AARP HEALTH CARE OPTIONS [id number] SP [id number] TODAYS OPTIONS [id number] SP [id number] Todays Option Medicare Commercial Premier 100 PFFS [id number] Self Premier 100 PFFS Medicaid Medigap Part B [id number] Self 1 1 Today's Option Medicare Commercial [id number] Self [place] Medigap Part B [id number] Self Medicare [facility] Medicare Primary [id number] Self Medicaid Medicaid [id number] Self Medicare Medicare Primary [id number] Self [place] 3 [id number] U SELF PAY 2 UNAVAILABLE 1 UNAVAILA BLE [facility] MEDICARE SOLUTIO 11 [id number] 1 [id number] MEDICARE [id number] SP [id number] MEDICARE COMPLETE [id number] SP [id number] HUMANA MEDICARE [facility] [id number] A [id number] AARP O [id number] S [id number] MEDICARE C [id number] S [id number] A MEDICAID M [id number] S [id number] AARP HEALTH CARE OPTIONS [id number] SP [id number] EMEDNY [id number] SP [id number] MEDICARE [id number] SP [id number] A Medicaid Medigap Part B [id number] Self [id number] MEDICAID [id number] SP [id number] Medicaid Medigap Part B [id number] Self [id number] [place] Medig[place] Part B [id number] Self [id number] [facility] Options Medigap Part B [id number] Self [id number] Medicare Natl Gov't Servi Medicare Primary [id number] Self [id number] MEDICARE [id number] SP [id number] A Todays Option Medicare Commercial [id number] Self [id number] Medicaid Medigap Part B [id number] Self [id number] Todays Option Medicare Commercial [id number] Self [id number] Medicaid Medigap Part B [id number] 87.0 Self [id number] Medicaid Medigap Part B [id number] Self [id number] Todays Option Medicare Commercial [id number] Self [id number] Problems, Conditions, and Diagnoses Code Display Name Description Problem Type Effective Dates Data Source(s) poss infection sores on foot poss infection sores on f oot Diagnosis 10/10/2020 05:00:00 AM EDT [place] [facility] - [facility] [id number] Unspecified open wound, left foot, initi al encounter Unspecified open wound, left foot, initial encounter Diagnosis 10/10/2020 05:00:00 AM E DT [place] [facility] - [facility] Surgeries/Procedures Procedure Description Date Indications Data Source(s) OFFICE OUTPATIENT VISIT 25 MINUTES 09/10/2020 12:00:00 AM EDT [facility] ([facility]) OFFICE OUTPATIENT VISIT 25 MINUTES 05/21/2020 12:00:00 AM EST [facility] ([facility]) OFFICE OUTPATIENT VISIT 15 MINUTES 03/20/2020 12:00:00 AM EST [facility] ([facility]) Results ID Date Data Source [id number] 10/11/2020 08:09:48 AM EDT [place] Elisa mathur - [facility], [facility] PATRICIA CORNEJOPATIENT IDENTIFICATION:[facility] Site: [facility] Name: PATRICIA CORNEJOMedical Record Number: [id number] Of : 1945CHIEF COMPLAINT:patient here with sores on b/l feet, per patients dtr. Shraddha patient is felicia, dtr concerned shemay have infection. Patient not sure of all her medications she is takingHISTORY OF PRESENT ILLNESS:Patient is a 75-year-old female presents walk-in clinic today with daughterwith sores of feetand legs. Patient is staying with her daughter over the next several weeks,visiting from [facility]. 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 She has multiple scabbedwounds on the upper [...] several weeks. Call results todiana Henderson at [phone]. Ordered:mupirocin topical, 1 savanah, Topical, tid, # 30 g, Maintenance, Pharmacy:[facility]/pharmacy #[id number], 1 appTopical tidsulfamethoxazole-trimethoprim, 1 tab(s), PO (oral), bid, # 14 tab(s),Maintenance, Pharmacy: [facility]/pharmacy #[id number], 1 tab(s) PO (oral) bid,x7 day(s)Culture [...] fevers develop or redstreaking up the leg, [facility].Follow-Up Appointments With: Follow up with primary care providerAddress: , , ,When: 5 to 7 days, only if needed This document was authenticated by Lisette Gilliland PA PA on 108:09 AM Name Value Range Interpretation Code Description Data Cathy rce(s) Supporting Document(s) ID Date Data Source [id number] 10/13/2020 09:26:06 AM EDT [place] El[place] mathur - [facility] Name PATRICIA CORNEJO hdate 1945Sex FEMALE Age 75 yearsPatient Acct. No. [id number] [facility] Physician Lisette Gilliland PAPrimary Care [...] 1 SusceptiblePerforming Locationsf1: This test was performed at:[facility], [address] [place] [address], [address] [place] [address] Name Value Range Interpretation Code Description Data Cathy rce(s) Supporting Document(s) ID Date Data Source [id number] 09/10/2020 12:40:00 PM EDT [facility] ([facility]) Name Value Range Interpretation Code Description Data Cathy rce(s) Supporting Document(s) Glucose [Mass/volume] in Serum or Plasma 97 mg/dL 74-99 [facility] ([facility]) 100-125 mg/dL PRE-DIABETES/FASTING >126 mg/dL DIABETES/FASTING Urea nitrogen [Mass/volume] in Serum or Plasma 20 mg/dL 7-18 [facility] ([facility]) Creatinine 1.0 mg/dL 0.6-1.3 [facility] ([facility]) Chloride [Moles/volume] in Serum or Plasma 102 meq/L 98-107 [facility] ([facility]) Sodium [Moles/volume] in Serum or Plasma 138 meq/L 136-145 [facility] ([facility]) Potassium [Moles/volume] in Serum or Plasma 4.4 meq/L 3.5-5.1 [facility] ([facility]) Carbon dioxide, total [Moles/volume] in Serum or Plasma 25 meq/L 21 -32 [facility] ([facility]) Calcium [Mass/volume] in Serum or Plasma 9.6 mg/dL 8.5-10.1 [facility] ([facility]) Alkaline phosphatase isoenzyme [Units/volume] in Serum or Pl asma 94 mg/dL 46-116 [facility] ([facility]) Total Bilirubin 0.3 mg/dL 0.2-1.0 [facility] ([facility]) Aspartate aminotransferase [Enzymatic activity/volume] in Serum or Plasma 16 U/L 15-37 [facility] ([facility] ) Albumin [Mass/volume] in Serum or Plasma 3.4 g/dL 3.4-5.0 [facility] ([facility]) Alanine aminotransferase [Enzymatic activity/volume] in Seru m or Plasma 17 U/L 12-78 [facility] ([facility]) A/G Ratio 0.89 CALC 1.00-1.90 [facility]) Proteinase 3 Ab [Units/volume] in Serum 7.2 g/dL 6.4-8.2 [facility] ([facility]) Glomerular filtration rate/1.73 sq M pre dicted among blacks [Volume Rate/Area] in Serum or Plasma by Creatinine-based formula (MDRD) Laboratory test result [facility] ([facility]) <content>CHRONIC KIDNEY DISEASE STAGING PER NKF</content>
<content></content>
<content>STAGE I & II GFR >= 60 NORMAL TO MILDLY DECREASED</content>
<content>STAGE III GFR 30-59 MODERATELY DECREASED</content>
<content>STAGE IV GFR 15-29 SEVERELY DECREASED</content>
<content>STAGE V GFR <15 VERY LITTLE GFR LEFT</content>
<content>ESRD GFR <15 ON PARAMEDIC SUPERVISOR</content>
<content></content> Glomerular filtration rate/1.73 sq M pre dicted among non-blacks [Volume Rate/Area] in Serum or Plasma by Creatinine-based formula (MDRD) 54 mL/min [facility] ID Date Data Source [id number] 09/10/2020 12:40:00 PM EDT [facility] Name Value Range Interpretation Code Description Data Cathy rce(s) Supporting Document(s) Erythrocytes [#/volume] in Blood by Automated count 4.22 x10*6/UL 4.2 0-6.30 [facility] Leukocytes [#/volume] in Blood by Automated count 6.9 x10*3/UL 4.1-10 .9 [facility] Hemoglobin [Mass/volume] in Blood 12.0 g/dL 12.0-18.0 [facility] ([facility]) Hematocrit [Volume Fraction] of Blood by Automated count 36.2 % 3 7.0-51.0 [facility]) MCHC 33.1 g/dL 31.0-38.0 [facility] MCV 85.9 fL 80.0-97.0 [facility] MCH 28.4 pg 26.0-32.0 [facility] Erythrocyte distribution width [Ratio] by Automated count 13.9 % 11.6-13.7 [facility] ([facility]) Platelets [#/volume] in Blood by Automated count 272 x10*3/UL 140-440 [facility] ([facility]) MPV 7.5 FL 7.8-11.0 [facility]) Lymph % 18.8 % 10.0-58.5 [facility] Mid % 6.0 % 1.7-9.3 [facility] Neut % 75.2 % 37.0-92.0 [facility] Mid # 0.4 x10*3/UL 0.1-0.6 [facility] ([facility]) Neut # 5.2 x10*3/UL 2.0-7.8 [facility] ([facility]) Lymph # 1.3 x10*3/UL 0.6-4.1 [facility] ([facility]) ID Date Data Source [id number] 05/21/2020 08:20:00 AM EST [facility] ([facility]) Name Value Range Interpretation Code Description Data Cathy rce(s) Supporting Document(s) Thyrotropin [Units/volume] in Serum or Plasma by Detec tion limit <= 0.05 mIU/L 0.53 uIU/mL 0.36-3.74 [facility] ([facility] ) ID Date Data Source [id number] 05/21/2020 08:20:00 AM EST [facility] ([facility]) Name Value Range Interpretation Code Description Data Cathy rce(s) Supporting Document(s) Cholesterol [Mass/volume] in Serum or Plasma 197 mg/dL 131-200 [facility] ([facility]) Triglyceride [Mass/volume] in Serum or Plasma 189 mg/dL 30-150 [facility] ([facility]) Cholesterol in HDL [Mass/volume] in Serum or Plasma 54 mg/dL 35-60 [facility] ([facility]) Cholesterol in LDL [Mass/volume] in Serum or Plasma by calcu lation 105 CALC 50-159 [facility] ([facility]) ID Date Data Source [id number] 05/21/2020 08:20:00 AM EST [facility] ([facility]) Name Value Range Interpretation Code Description Data Cathy rce(s) Supporting Document(s) Glucose [Mass/volume] in Serum or Plasma 157 mg/dL 74-99 [facility] ([facility]) 100-125 mg/dL PRE-DIABETES/FASTING >126 mg/dL DIABETES/FASTING Urea nitrogen [Mass/volume] in Serum or Plasma 32 mg/dL 7-18 [facility] ([facility]) NOTE: bun,alk phos,albumin,magnesium verified Creatinine 1.3 mg/dL 0.6-1.3 [facility] ([facility]) Sodium [Moles/volume] in Serum or Plasma 138 meq/L 136-145 [facility] ([facility]) Potassium [Moles/volume] in Serum or Plasma 4.3 meq/L 3.5-5.1 [facility] ([facility]) Chloride [Moles/volume] in Serum or Plasma 102 meq/L 98-107 [facility] ([facility]) Carbon dioxide, total [Moles/volume] in Serum or Plasma 26 meq/L 21 -32 [facility] Alkaline phosphatase isoenzyme [Units/volume] in Serum or Pl asma 119 mg/dL 46-116 [facility] ([facility]) Calcium [Mass/volume] in Serum or Plasma 8.9 mg/dL 8.5-10.1 [facility] ([facility]) Aspartate aminotransferase [Enzymatic activity/volume] in Serum or Plasma 17 U/L 15-37 [facility] ([facility] ) Total Bilirubin 0.2 mg/dL 0.2-1.0 [facility] ([facility]) Alanine aminotransferase [Enzymatic activity/volume] in Seru m or Plasma 12 U/L 12-78 [facility] ([facility]) Albumin [Mass/volume] in Serum or Plasma 3.3 g/dL 3.4-5.0 [facility] ([facility]) Proteinase 3 Ab [Units/volume] in Serum 6.9 g/dL 6.4-8.2 [facility] ([facility]) A/G Ratio 0.92 CALC 1.00-1.90 [facility]) Glomerular filtration rate/1.73 sq M pre dicted among blacks [Volume Rate/Area] in Serum or Plasma by Creatinine-based formula (MDRD) 49 mL/min [facility] ([facility]) <content>CHRONIC KIDNEY DISEASE STAGING PER NKF</content>
<content></content>
<content>STAGE I & II GFR >= 60 NORMAL TO MILDLY DECREASED</content>
<content>STAGE III GFR 30-59 MODERATELY DECREASED</content>
<content>STAGE IV GFR 15-29 SEVERELY DECREASED</content>
<content>STAGE V GFR <15 VERY LITTLE GFR LEFT</content>
<content>ESRD GFR <15 ON PARAMEDIC SUPERVISOR</content>
<content></content> Glomerular filtration rate/1.73 sq M pre dicted among non-blacks [Volume Rate/Area] in Serum or Plasma by Creatinine-based formula (MDRD) 40 mL/min [facility] ([facility]) ID Date Data Source [id number] 05/21/2020 08:20:00 AM EST [facility] ([facility]) Name Value Range Interpretation Code Description Data Cathy rce(s) Supporting Document(s) Magnesium 1.3 mg/dL 1.8-2.4 [facility]) ID Date Data Source [id number] 05/21/2020 08:20:00 AM EST [facility] ([facility]) Name Value Range Interpretation Code Description Data Cathy rce(s) Supporting Document(s) Hemoglobin A1c/Hemoglobin.total in Blood 6.0 % [facility] ([facility]) Lab Result Notes: Pre-Diabetes 5.7 - 6.4 % Diabetes = or > 6.5% Glucose mean value [Mass/volume] in Blood Estimated fr om glycated hemoglobin 125 mg/dL 60-110 [facility] ID Date Data Source [id number] 05/21/2020 08:20:00 AM EST [facility] ([facility]) Name Value Range Interpretation Code Description Data Cathy rce(s) Supporting Document(s) Magnesium, Serum Laboratory test result [facility]) Hemoglobin A1c/Hemoglobin.total in Blood Laboratory test result [facility] ([facility]) ID Date Data Source [id number] 05/21/2020 08:19:00 AM EST [facility] ([facility]) Name Value Range Interpretation Code Description Data Cathy rce(s) Supporting Document(s) Leukocytes [#/volume] in Blood by Automated count 6.8 x10*3/UL 4.1-10 .9 [facility] ([facility]) NOTE: CBC VERIFIED Erythrocytes [#/volume] in Blood by Automated count 3.99 x10*6/UL 4.2 0-6.30 [facility] ([facility]) MCV 85.4 fL 80.0-97.0 [facility]) Hemoglobin [Mass/volume] in Blood 11.6 g/dL 12.0-18.0 [facility] ([facility]) Hematocrit [Volume Fraction] of Blood by Automated count 34.1 % 3 7.0-51.0 [facility] ([facility]) MCHC 34.1 g/dL 31.0-38.0 [facility]) MCH 29.1 pg 26.0-32.0 [facility]) Erythrocyte distribution width [Ratio] by Automated count 13.8 % 11.6-13.7 [facility] ([facility]) Platelets [#/volume] in Blood by Automated count 277 x10*3/UL 140-440 [facility] ([facility]) MPV 7.9 FL 7.8-11.0 [facility]) Lymph % 24.8 % 10.0-58.5 [facility]) Mid % 6.4 % 1.7-9.3 [facility] Neut % 68.8 % 37.0-92.0 [facility] Lymph # 1.6 x10*3/UL 0.6-4.1 [facility] ([facility]) Mid # 0.6 x10*3/UL 0.1-0.6 [facility] ([facility]) Neut # 4.6 x10*3/UL 2.0-7.8 [facility] ([facility]) ID Date Data Source [id number] 02/11/2020 01:54:00 AM EST [facility] ([facility]) Name Value Range Interpretation Code Description Data Cathy rce(s) Supporting Document(s) Erythrocyte sedimentation rate by Westergren method 62 mm/hr 0-30 [facility] [facility]) Urate [Mass/volume] in Serum or Plasma 7.7 mg/dL 2.6-6.0 MED[facility] ([facility]) ID Date Data Source [id number] 02/11/2020 01:54:00 AM EST [facility] ([facility]) Name Value Range Interpretation Code Description Data Cathy rce(s) Supporting Document(s) White Blood Count 14.6 10 4.0-10.0 [facility] ([facility]) Red Blood Count 4.09 10 4.00-5.40 [facility] ([facility]) Hemoglobin 11.7 g/dL 12.0-15.5 [facility]) Hematocrit 36.4 % 36.0-47.0 [facility] ([facility]) Mean Corpuscular Volume 89.0 fl 80.0-96.0 MED[facility] ([facility]) Mean Corpuscular HGB Conc 32.1 g/dL 32.0-36.5 MEDE NT ([facility]) Mean Corpuscular Hemoglobin 28.6 pg 27.0-33.0 [place] DENT ([facility]) Platelet Count, Automated 243 10 150-450 MEDE NT ([facility]) Neutrophils % 79.9 % 36.0-66.0 [facility] ([facility]) Red Cell Distribution Width 14.3 % 11.5-14.5 [place] DENT ([facility]) Letcher % 10.4 % 0.0-5.0 [facility]) Eos % 0.2 % 0.0-3.0 [facility] ([facility]) Lymph % 8.9 % 24.0-44.0 [facility] ([facility]) Immature Granulocyte % 0.3 % 0-3.0 [facility] ([facility]) Baso % 0.3 % 0.0-1.0 [facility] ([facility]) Nucleated Red Blood Cell % 0.0 % 0-0 MED ENT ([facility]) Lymph # 1.3 10 1.5-5.0 [facility] ([facility]) Neutrophils # 11.6 10 1.5-8.5 [facility] ([facility]) Baso # 0.0 10 0.0-0.2 [facility] ([facility]) Eos # 0.0 10 0.0-0.5 [facility] ([facility]) Letcher # 1.5 10 0.0-0.8 [facility] ([facility]) Procedure Social History No Information Vital Signs ID Date Data Source UNK Name Value Range Interpretation Code Description Data Source(s) Body height 59.8 [in_i] 59.8 [in_i] [place] an[place] - [facility] Result Comment: Result placed secondary from cm, converted to Inches Body weight Measured 194 lb 0 oz 194 lb 0 oz As cension [place] - [facility] Result Comment: Result placed secondary from kg, converted to lbs Systolic blood pressure 150 mm[Hg] Above high normal 150 m m[Hg] [place]mis - [facility] Diastolic blood pressure 92 mm[Hg] Above high normal 92 m m[Hg] [place] - [facility] Heart rate 88 /min Normal (applies to non-numeric resul ts) 88 /min [place] - [facility] Respiratory rate 16 /min Normal (applies to non-numeric results) 16 /min [place] - [facility] Diastolic blood pressure 80 mm[Hg] 80 mm[Hg] MEDENT ([facility]) Systolic blood pressure 134 mm[Hg] 134 mm[Hg] M EDENT ([facility]) Heart rate 72 /min 72 /min MED[facility] ([facility]) Body height 60 [in_i] 60 [in_i] [facility] ([facility]) 5'0" Body weight 190.00 [lb_av] 190.00 [lb_av] MEDEN T ([facility]) Body mass index (BMI) [Ratio] 37.1 kg/m2 37.1 k g/m2 MED[facility] ([facility]) Systolic blood pressure 130 mm[Hg] 130 mm[Hg] M EDENT ([facility]) Diastolic blood pressure 78 mm[Hg] 78 mm[Hg] MED[facility] ([facility]) Heart rate 80 /min 80 /min [facility] ([facility]) Body height 60 [in_i] 60 [in_i] [facility] ([facility]) 5'0" Body weight 191.00 [lb_av] 191.00 [lb_av] MEDEN T ([facility]) Body mass index (BMI) [Ratio] 37.3 kg/m2 37.3 k g/m2 [facility] ([facility]) Systolic blood pressure 134 mm[Hg] 134 mm[Hg] M EDENT ([facility], [facility]) Diastolic blood pressure 80 mm[Hg] 80 mm[Hg] [facility], [facility]) Heart rate 86 /min 86 /min MED[facility] ([facility], [facility]) Respiratory rate 16 /min 16 /min [facility] ( [facility], [facility]) Body weight 175.00 [lb_av] 175.00 [lb_av] MEDEN T ([facility], [facility]) Oxygen saturation in Arterial blood by Pulse oximetry 97 % 97 % [facility] ([facility], [facility]) Body temperature 98.4 [degF] 98.4 [degF] [facility], [facility]) Body mass index (BMI) [Ratio] 34.2 kg/m2 34.2 k g/m2 MED[facility] ([facility], [facility]) Body height 60 [in_i] 60 [in_i] [facility] ([facility], [facility]) 5'0" Heart rate 108 /min 108 /min [facility] ([facility]) Heart rate 100 /min 100 /min [facility] ([facility], [facility]) Respiratory rate 20 /min 20 /min [facility] ( [facility], [facility]) Oxygen saturation in Arterial blood by Pulse oximetry 99 % 99 % [facility] ([facility]) Body temperature 98.5 [degF] 98.5 [degF] [facility] ([facility], [facility]) Body weight 194.00 [lb_av] 194.00 [lb_av] MEDEN T ([facility], [facility]) Systolic blood pressure 136 mm[Hg] 136 mm[Hg] [facility], [facility]) Diastolic blood pressure 82 mm[Hg] 82 mm[Hg] [facility] ([facility], [facility]) Body height 60 [in_i] 60 [in_i] [facility] ([facility], [facility]) 5'0" Body mass index (BMI) [Ratio] 37.9 kg/m2 37.9 k g/m2 [facility] ([facility]) Patient Treatment Plan of Care Planned Activity Planned Date Details Description Data Source (s) Bactroban 2% topical ointment 10/10/2020 08:09:00 PM EDT [place] [facility] Bactrim DS 800 mg-160 mg oral tablet 10/10/2020 08:09:00 PM EDT [place] [facility] - [facility], [facility] Meclizine Hydrochloride 25 MG Oral Tablet 10/10/2020 07:53:00 PM ED T [place] - [facility]
[2021-01-15 01:15] LABS: OSMOLALITY SERUM 299 MOSM/KG (280-301)
[2021-01-15 01:25] LABS: ACETAMINOPHEN LEVEL 5.3 UG/ML (10.0-30.0); ALBUMIN 3.3 GM/DL (3.2-5.2); ALT/SGPT 12 U/L (12-78); BILIRUBIN,DIRECT < 0.1 MG/DL (0.0-0.2); BILIRUBIN,TOTAL 0.2 MG/DL (0.2-1.0); BLOOD UREA NITROGEN 37 MG/DL (7-18); CALCIUM LEVEL 8.8 MG/DL (8.8-10.2); CARBON DIOXIDE LEVEL 21 MEQ/L (21-32); CHLORIDE LEVEL 109 MEQ/L (98-107); CK-MB VALUE MASS 3.5 NG/ML (<3.6); CPK CREATINE PHOSPHOKINASE 130 U/L (26-192); CREATININE FOR GFR 1.73 MG/DL (0.55-1.30); ETHYL ALCOHOL (ETHANOL) < 0.003 % (0.000-0.010); GLOMERULAR FILTRATION RATE 30.7 (>39); GLUCOSE, FASTING 96 MG/DL (70-100); MB/CK RELATIVE INDEX 2.69 (< OR =4); POTASSIUM SERUM 3.8 MEQ/L (3.5-5.1); SALICYLATE LEVEL 15.6 MG/DL (5.0-30.0); SODIUM LEVEL 138 MEQ/L (136-145); THYROID STIMULATING HORMONE 0.432 uIU/ML (0.358-3.740); TOTAL PROTEIN 7.5 GM/DL (6.4-8.2); TROPONIN I < 0.02 NG/ML (< 0.10)
--- NOTE | 2021-01-15 01:29 | REPVR ---
PROCEDURE INFORMATION: Exam: CT Head Without Contrast Exam date and time: 01/15/2021 12:13 AM Age: 75 years old Clinical indication: Other: AMS; Additional info: Altered mental status TECHNIQUE: Imaging protocol: Computed tomography of the head without contrast. Radiation optimization: All CT scans at this facility use at least one of these dose optimization techniques: automated exposure control; mA and/or kV adjustment per patient size (includes targeted exams where dose is matched to clinical indication); or iterative reconstruction. COMPARISON: CT Head without contrast 2016-06-10 21:02 FINDINGS: Brain: Normal. No hemorrhage. Unremarkable white matter. No mass effect. Cerebral ventricles: No ventriculomegaly. Paranasal sinuses: Visualized sinuses are unremarkable. No fluid levels. Mastoid air cells: Visualized mastoid air cells are well aerated. Bones/joints: Unremarkable. No acute fracture. Soft tissues: Unremarkable. IMPRESSION: No acute intracranial abnormality. Electronically signed by: Abundio Hou On 01/15/2021 01:28:48 AM
--- NOTE | 2021-01-15 01:30 | REPVR ---
PROCEDURE INFORMATION: Exam: XR Chest Exam date and time: 01/14/2021 11:59 PM Age: 75 years old Clinical indication: Other: AMS; Additional info: Altered mental status TECHNIQUE: Imaging protocol: XR of the chest. Views: 1 view. COMPARISON: CR Shoulder, complete 2020-02-11 01:07 FINDINGS: Lungs: Unremarkable. No consolidation. Pleural spaces: Unremarkable. No pleural effusion. No pneumothorax. Heart/Mediastinum: Unremarkable. No cardiomegaly. Bones/joints: Unremarkable. IMPRESSION: No acute findings. Electronically signed by: Abundio Hou On 01/15/2021 01:29:34 AM
[2021-01-15 01:53] LABS: ABG BASE EXCESS -7.9 (-2.0-2.0); ABG HCO3 16.4 MEQ/L (22.0-26.0); ABG O2 SATURATION 96.5 % (95.0-99.0); ABG PARTIAL PRESSURE CO2 29.9 mmHg (35.0-45.0); ABG PARTIAL PRESSURE O2 92.2 mmHg (75.0-100.0); ABG STANDARD HCO3 18.1 MEQ/L (22.0-26.0); ABG TOTAL CO2 17.4 MEQ/L (23.0-31.0); ABG pH (ARTERIAL) 7.358 UNITS (7.350-7.450)
[2021-01-15] MEDS ORDERED: NS 1,000 ML IV ONE (01:55)
[2021-01-15 03:10] LABS: AMPHETAMINES LEVEL URINE NEGATIVE (NEGATIVE); BARBITURATES URINE NEGATIVE (NEGATIVE); BENZODIAZEPINES URINE NEGATIVE (NEGATIVE); CANNABINOIDS URINE NEGATIVE (NEGATIVE); COCAINE METABOLITE URINE NEGATIVE (NEGATIVE); METHADONE URINE NEGATIVE (NEGATIVE); OPIATES URINE NEGATIVE (NEGATIVE); PHENCYCLIDINE URINE NEGATIVE (NEGATIVE)
[2021-01-15] MEDS ORDERED: MAALOX 30 ML SUSP *UDC PO PRN (04:35)
[2021-01-15] MEDS ORDERED: MOM 30ML SUSPENSION UDC PO PRN (04:35)
[2021-01-15] MEDS: NS 1,000 ML IV SCH ×2 (05:02→18:11)
--- OUTSIDE RECORDS SUMMARY | 2021-01-15 05:02 | CCD ---
Author Author [facility] Organization [facility] Address Unknown Phone Unavailable Care Team Providers Care Printing Supplies Sales Representative Name Role Phone Restrepo, Marilou EXECUTIVE SEARCH CONSULTANT Unavailable Unavailable Restrepo, Marilou EXECUTIVE SEARCH CONSULTANT Unavailable Unavailable Restrepo, Marilou EXECUTIVE SEARCH CONSULTANT Unavailable Unavailable Restrepo, Marilou EXECUTIVE SEARCH CONSULTANT Unavailable Unavailable Restrepo, Marilou EXECUTIVE SEARCH CONSULTANT Unavailable Unavailable Restrepo, Marilou EXECUTIVE SEARCH CONSULTANT Unavailable Unavailable Restrepo, Marilou EXECUTIVE SEARCH CONSULTANT Unavailable Unavailable Restrepo, Marilou EXECUTIVE SEARCH CONSULTANT Unavailable Unavailable Restrepo, Marilou EXECUTIVE SEARCH CONSULTANT Unavailable Unavailable Restrepo, Marilou EXECUTIVE SEARCH CONSULTANT Unavailable Unavailable Restrepo, Marilou EXECUTIVE SEARCH CONSULTANT Unavailable Unavailable Restrepo, Marilou EXECUTIVE SEARCH CONSULTANT Unavailable Unavailable Restrepo, Marilou EXECUTIVE SEARCH CONSULTANT Unavailable Unavailable Ariela Ramos MD Unavailable Unavailable [...] is protected by Article 27-F of the [facility] Public Health law. If you continue you may have access to information: Regarding HIV / AIDS; Provided by facilities licensed or operated by the [facility] Office of Mental Health; or Provided by the [facility] Office for People With Developmental Disabilities. If such information is present, then the following [facility] mandated warning applies: This information has been [...] law may result in a fine or custodial sentence or both. A general authorization for [...] TEST P JOSE-PEW 10/10/2020 07:46:00 PM EDT [facility] Raygo[facility] - [facility], [facility] Outpatient Attender: LISETTE GILLILANDAdmitter: LISETTE HO PEW-PEW 10/10/2020 05:00:00 AM EDT - 10/10/2020 05:00:00 AM EDT [facility] Idalmis - [facility] Patient discharged. <content styleCode="Bold">OLLiza MACKENZIE4 FIN 20 [id number] Date(s): 10/10/20 - 10/11/20</content>
[address]
<content styleCode="Bold Underline">Encounter Diagnosis</content>
<content ID="[id number]">Unspecified open wound, left foot, initial encounter</content> (Discharge Diagnosis) -
<content ID="[id number]">Discharge Disposition: DSC to Home</content>
Attending Physician: Lisette Gilliland PA
Admitting Physician: Lisette Gilliland PA
Outpatient Ancillary Attender: GRICELDA GILLILANDAttender: Lisette GillilandAdmitter: Lisette Gilliland [facility]-PEW 10/10/2020 05:00:00 AM EDT - 10/11/2020 11:59:59 PM EDT [facility] [facility]almis - [facility] Outpatient Attender: Ed Otero 09/10 01:00:00 PM EDT [facility] ([facility] ) Outpatient Attender: Ed Otero 05/21 07:30:00 AM EST [facility] ([facility] ) Outpatient Attender: Marilou garza 05/07/2020 10:30:00 AM EST [facility] ([facility]) Outpatient Attender: PAT Otero 1 05/21/2019 02:20:00 PM EST [facility] ([facility] ) Outpatient Attender: Gwendolyn kay 01/24/2020 01:00:00 PM EDT [facility] ([facility]) Medications Medication Brand [...] TWICE A DAY FOR DIZZINESS SOLD: 01/07/2021 [employer] [facility] Meclizine Hydrochloride 25 MG Oral Tablet MECLIZINE HCL 10/25/2020 12:00:00 AM EDT tablet 60 TAKE ONE TABLET BY MOUTH TWI CE A DAY FOR DIZZINESS TAKE ONE TABLET BY MOUTH TWICE A DAY FOR DIZZINESS SOLD: 10/29/2020 [employer] Bactrim DS 800 mg-160 mg oral tablet [id number] 10/10/2020 08:09:00 P M EDT 1.0 By Mouth active 1 tab(s), PO (oral), bid, # 14 tab(s), M aintenance, Pharmacy: [facility]/pharmacy #[id number], 1 tab(s) PO (oral) bid,x7 day(s) [facility] Bactroban 2% topical ointment [id number] 10/10/2020 08:09:00 PM EDT 1.0 On Skin active 1 savanah, Topical, tid, # 30 g, Maintenance , Pharmacy: [facility]/pharmacy #[id number], 1 savanah Topical tid [facility], [facility] Meclizine Hydrochloride 25 MG Oral Tablet meclizine 25 mg oral tablet meclizine 25 mg oral tablet 10/10/2020 07:53:00 PM EDT 25.0 mg By Mouth active 25 mg = 1 tab(s), PO (oral), tid, PRN Dizziness, 0 Ref ill(s), Maintenance [facility] Idalmis - [facility] 100 mg 09/19/2020 12:00:00 AM [...] AM EST active [facility] ([facility]) Triamcinolone Acetonide 0.005 MG/MG Topical Ointment Triamci nolone Acetonide 05/07/2020 12:00:00 AM EST active [facility] ([facility]) 25 mg 05/07/2020 12:00:00 AM EST tablet [...] 03/20/2020 12:00:00 AM EST ORAL active [facility] ([facility]) Furosemide 20 MG Oral Tablet Furosemide 03/20/2020 12:00:00 AM EST ORAL active [facility] ([facility]) 20 mg 03/20/2020 12:00:00 [...] HCL 01/24/2020 12:00:00 AM EDT active [facility] ([facility]) Sulfamethoxazole 800 MG / Trimethoprim 160 MG Oral Tab let Sulfamethoxazole/Trimethoprim DS 01/24/2020 12:00:00 AM EDT ORAL completed [facility] ([facility]) Petrolatum 0.41 MG/MG Topical Ointment [Aquaphor] Aquaphor 01/24/2020 12:00:00 AM EDT completed [facility] ([facility]) Meclizine Hydrochloride 25 MG Oral Tablet [...] Information Medicare Natl Govt Servic Medicare Primary [id number] Self [id number] MEDICARE [id number] Nicole [id number] A Medicare Natl Govt Servic Medicare Primary [id number] Self [id number] Medicare Natl Govt Servic Medicare Primary [id number] Self [id number] Medicare Natl Govt Servic Medicare Primary [id number] Self Medicare Natl Govt Servic Medicare Primary [id number] Self [id number] Medicare C [id number] SELF [id number] A Medicare Natl Govt Servic Medicare Primary [id number] Self [id number] MEDICAID [id number] Nicole [id number] DME Jurisdiction A [facility] C [id number] SELF [id number] [facility] Supplemental F [id number] SELF [id number] [facility] AARP Supplemental F [id number] SELF [id number] [facility] Opt Medigap Part B [id number] Self [id number] 11 [facility] Opt Medigap Part B Plan F [id number] Self Plan F Todays Option Medicare Commercial [id number] Self [id number] [employer]/Todays Optmcr Commercial [id number] Self [id number] [facility] Opt Medigap Part B [id number] Self [id number] 11 [facility] Opt Medigap Part B [id number] Self [id number] 11 [facility] Opt Medigap Part B [id number] Self [id number] 11 [facility] Opt Medigap Part B [id number] Self [id number] 11 [place] COMPUTER S [facility] [id number] A [id number] AARP HEALTH CARE OPTIONS [id number] SP [id number] TODAYS OPTIONS [id number] SP [id number] Todays Option Medicare Commercial Premier 100 PFFS [id number] Self Premier 100 PFFS Medicaid Medigap Part B [id number] Self 1 1 Today's Option Medicare Commercial [id number] Self [place] Medigap Part B [id number] Self Medicare [facility] Medicare Primary [id number] Self Medicaid Medicaid [id number] Self Medicare Medicare Primary [id number] Self [place] 3 [id number] U SELF PAY 2 UNAVAILABLE 1 UNAVAILA BLE [facility] MEDICARE SOLUTIO 11 [id number] 1 [id number] MEDICARE [id number] SP [id number] MEDICARE COMPLETE [id number] SP [id number] HUMANA MEDICARE [facility] [id number] A [id number] AARP O [id number] S [id number] MEDICARE C [id number] S [id number] A MEDICAID M [id number] S [id number] AARP HEALTH CARE OPTIONS [id number] SP [id number] [place] [id number] SP [id number] MEDICARE [id number] SP [id number] A Medicaid Medigap Part B [id number] 87.0 Self [id number] MEDICAID [id number] SP [id number] Medicaid Medigap Part B [id number] 87.0 Self [id number] [place] Medigap Part B [id number] Self [id number] [facility] Options Medigap Part B [id number] Self [id number] Medicare Natl Gov't Servi Medicare Primary [id number] Self [id number] MEDICARE [id number] SP [id number] A Todays Option Medicare Commercial [id number] Self [id number] Medicaid Medigap Part B [id number] 87.0 Self [id number] Todays Option Medicare Commercial [id number] Self [id number] Medicaid Medigap Part B [id number] 87.0 Self [id number] Medicaid Medigap Part B [id number] 87.0 Self [id number] Todays Option Medicare Commercial [id number] Self [id number] Problems, Conditions, and Diagnoses Code Display Name Description Problem Type Effective Dates Data Source(s) poss infection sores on foot poss infection sores on f oot Diagnosis 10/10/2020 05:00:00 AM EDT [facility] Idalmis - [facility] [id number] Unspecified open wound, left foot, initi al encounter Unspecified open wound, left foot, initial encounter Diagnosis 10/10/2020 05:00:00 AM E DT [facility] [facility]mis - [facility] Surgeries/Procedures Procedure Description Date Indications Data Source(s) OFFICE OUTPATIENT VISIT 25 MINUTES 09/10/2020 12:00:00 AM EDT [facility] ([facility]) OFFICE OUTPATIENT VISIT 25 MINUTES 05/21/2020 12:00:00 AM EST [facility] ([facility]) OFFICE OUTPATIENT VISIT 15 MINUTES 03/20/2020 12:00:00 AM EST [facility] ([facility]) Results ID Date Data Source [id number] 10/11/2020 08:09:48 AM EDT [place] Elisa mathur - [facility], [facility] PATRICIA CORNEJOPATIENT IDENTIFICATION:[facility] Site: [facility] Name: PATRICIA CORNEJOMedical Record Number: [id number] Of : 1945CHIEF COMPLAINT:patient here with sores on b/l feet, per patients dtr. Shraddha patient is felicia, dtr concerned shemay have infection. Patient not sure of all her medications she is takingHISTORY OF PRESENT ILLNESS:Patient is a 75-year-old female presents walk-in clinic today with daughterwith sores of feetand legs. Patient is staying with her daughter over the next several weeks,visiting from [facility]. 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 She has multiple scabbedwounds on the [...] several weeks. Call results todiana Henderson at [phone]. Ordered:mupirocin topical, 1 savanah, Topical, tid, # 30 g, Maintenance, Pharmacy:[facility]/pharmacy #[id number], 1 appTopical tidsulfamethoxazole-trimethoprim, 1 tab(s), PO (oral), bid, # 14 tab(s),Maintenance, Pharmacy: [facility] #[id number], 1 tab(s) PO (oral) bid,x7 day(s)Culture [...] fevers develop or redstreaking up the leg, [facility].Follow-Up Appointments With: Follow up with primary care providerAddress: , , ,When: 5 to 7 days, only if needed This document was authenticated by Lisette Gilliland PA PA on 108:09 AM Name Value Range Interpretation Code Description Data Cathy rce(s) Supporting Document(s) ID Date Data Source [id number] 10/13/2020 09:26:06 AM EDT [place] Elisa mathur - [facility] Name PATRICIA CORNEJO hdate 1945Sex FEMALE Age 75 yearsPatient Acct. No. [id number] Watson [facility] Lisette Gilliland PAPrimary [...] 1 SusceptiblePerforming Locationsf1: This test was performed at:[facility], [address] [place] [address], [address] [place] [address] Name Value Range Interpretation Code Description Data Cathy rce(s) Supporting Document(s) ID Date Data Source [id number] 09/10/2020 12:40:00 PM EDT [facility] ([facility]) Name Value Range Interpretation Code Description Data Cathy rce(s) Supporting Document(s) Glucose [Mass/volume] in Serum or Plasma 97 mg/dL 74-99 [facility] ([facility]) 100-125 mg/dL PRE-DIABETES/FASTING >126 mg/dL DIABETES/FASTING Urea nitrogen [Mass/volume] in Serum or Plasma 20 mg/dL 7-18 [facility] ([facility]) Creatinine 1.0 mg/dL 0.6-1.3 [facility] ([facility]) Chloride [Moles/volume] in Serum or Plasma 102 meq/L 98-107 [facility] ([facility]) Sodium [Moles/volume] in Serum or Plasma 138 meq/L 136-145 [facility] ([facility]) Potassium [Moles/volume] in Serum or Plasma 4.4 meq/L 3.5-5.1 [facility] ([facility]) Carbon dioxide, total [Moles/volume] in Serum or Plasma 25 meq/L 21 -32 [facility] ([facility]) Calcium [Mass/volume] in Serum or Plasma 9.6 mg/dL 8.5-10.1 [facility] ([facility]) Alkaline phosphatase isoenzyme [Units/volume] in Serum or Pl asma 94 mg/dL 46-116 [facility] ([facility]) Total Bilirubin 0.3 mg/dL 0.2-1.0 [facility] ([facility]) Aspartate aminotransferase [Enzymatic activity/volume] in Serum or Plasma 16 U/L 15-37 [facility] ([facility] ) Albumin [Mass/volume] in Serum or Plasma 3.4 g/dL 3.4-5.0 [facility] ([facility]) Alanine aminotransferase [Enzymatic activity/volume] in Seru m or Plasma 17 U/L 12-78 [facility] ([facility]) A/G Ratio 0.89 CALC 1.00-1.90 [facility]) Proteinase 3 Ab [Units/volume] in Serum 7.2 g/dL 6.4-8.2 [facility] ([facility]) Glomerular filtration rate/1.73 sq M pre dicted among blacks [Volume Rate/Area] in Serum or Plasma by Creatinine-based formula (MDRD) Laboratory test result [facility] ([facility]) <content>CHRONIC KIDNEY DISEASE STAGING PER NKF</content>
<content></content>
<content>STAGE I & II GFR >= 60 NORMAL TO MILDLY DECREASED</content>
<content>STAGE III GFR 30-59 MODERATELY DECREASED</content>
<content>STAGE IV GFR 15-29 SEVERELY DECREASED</content>
<content>STAGE V GFR <15 VERY LITTLE GFR LEFT</content>
<content>ESRD GFR <15 ON SLIME PLANT OPERATOR HELPER</content>
<content></content> Glomerular filtration rate/1.73 sq M pre dicted among non-blacks [Volume Rate/Area] in Serum or Plasma by Creatinine-based formula (MDRD) 54 mL/min [facility] ID Date Data Source [id number] 09/10/2020 12:40:00 PM EDT [facility] Name Value Range Interpretation Code Description Data Cathy rce(s) Supporting Document(s) Erythrocytes [#/volume] in Blood by Automated count 4.22 x10*6/UL 4.2 0-6.30 [facility] Leukocytes [#/volume] in Blood by Automated count 6.9 x10*3/UL 4.1-10 .9 [facility] Hemoglobin [Mass/volume] in Blood 12.0 g/dL 12.0-18.0 [facility] ([facility]) Hematocrit [Volume Fraction] of Blood by Automated count 36.2 % 3 7.0-51.0 [facility] MCHC 33.1 g/dL 31.0-38.0 [facility] MCV 85.9 fL 80.0-97.0 [facility] MCH 28.4 pg 26.0-32.0 [facility] Erythrocyte distribution width [Ratio] by Automated count 13.9 % 11.6-13.7 [facility] ([facility]) Platelets [#/volume] in Blood by Automated count 272 x10*3/UL 140-440 [facility] ([facility]) MPV 7.5 FL 7.8-11.0 [facility]) Lymph % 18.8 % 10.0-58.5 [facility] Mid % 6.0 % 1.7-9.3 [facility] Neut % 75.2 % 37.0-92.0 [facility] Mid # 0.4 x10*3/UL 0.1-0.6 [facility] ([facility]) Neut # 5.2 x10*3/UL 2.0-7.8 [facility] ([facility]) Lymph # 1.3 x10*3/UL 0.6-4.1 [facility] ([facility]) ID Date Data Source [id number] 05/21/2020 08:20:00 AM EST [facility] ([facility]) Name Value Range Interpretation Code Description Data Cathy rce(s) Supporting Document(s) Thyrotropin [Units/volume] in Serum or Plasma by Detec tion limit <= 0.05 mIU/L 0.53 uIU/mL 0.36-3.74 [facility] ([facility] ) ID Date Data Source [id number] 05/21/2020 08:20:00 AM EST [facility] ([facility]) Name Value Range Interpretation Code Description Data Cathy rce(s) Supporting Document(s) Cholesterol [Mass/volume] in Serum or Plasma 197 mg/dL 131-200 [facility] ([facility]) Triglyceride [Mass/volume] in Serum or Plasma 189 mg/dL 30-150 [facility] ([facility]) Cholesterol in HDL [Mass/volume] in Serum or Plasma 54 mg/dL 35-60 [facility] ([facility]) Cholesterol in LDL [Mass/volume] in Serum or Plasma by calcu lation 105 CALC 50-159 [facility] ([facility]) ID Date Data Source [id number] 05/21/2020 08:20:00 AM EST [facility] ([facility]) Name Value Range Interpretation Code Description Data Cathy rce(s) Supporting Document(s) Glucose [Mass/volume] in Serum or Plasma 157 mg/dL 74-99 [facility] ([facility]) 100-125 mg/dL PRE-DIABETES/FASTING >126 mg/dL DIABETES/FASTING Urea nitrogen [Mass/volume] in Serum or Plasma 32 mg/dL 7-18 [facility] ([facility]) NOTE: bun,alk phos,albumin,magnesium verified Creatinine 1.3 mg/dL 0.6-1.3 [facility] ([facility]) Sodium [Moles/volume] in Serum or Plasma 138 meq/L 136-145 [facility] ([facility]) Potassium [Moles/volume] in Serum or Plasma 4.3 meq/L 3.5-5.1 [facility] ([facility]) Chloride [Moles/volume] in Serum or Plasma 102 meq/L 98-107 [facility] ([facility]) Carbon dioxide, total [Moles/volume] in Serum or Plasma 26 meq/L 21 -32 [facility] Alkaline phosphatase isoenzyme [Units/volume] in Serum or Pl asma 119 mg/dL 46-116 [facility] ([facility]) Calcium [Mass/volume] in Serum or Plasma 8.9 mg/dL 8.5-10.1 [facility] ([facility]) Aspartate aminotransferase [Enzymatic activity/volume] in Serum or Plasma 17 U/L 15-37 [facility] ([facility] ) Total Bilirubin 0.2 mg/dL 0.2-1.0 [facility] ([facility]) Alanine aminotransferase [Enzymatic activity/volume] in Seru m or Plasma 12 U/L 12-78 [facility] ([facility]) Albumin [Mass/volume] in Serum or Plasma 3.3 g/dL 3.4-5.0 [facility] ([facility]) Proteinase 3 Ab [Units/volume] in Serum 6.9 g/dL 6.4-8.2 [facility] ([facility]) A/G Ratio 0.92 CALC 1.00-1.90 [facility]) Glomerular filtration rate/1.73 sq M pre dicted among blacks [Volume Rate/Area] in Serum or Plasma by Creatinine-based formula (MDRD) 49 mL/min [facility] ([facility]) <content>CHRONIC KIDNEY DISEASE STAGING PER NKF</content>
<content></content>
<content>STAGE I & II GFR >= 60 NORMAL TO MILDLY DECREASED</content>
<content>STAGE III GFR 30-59 MODERATELY DECREASED</content>
<content>STAGE IV GFR 15-29 SEVERELY DECREASED</content>
<content>STAGE V GFR <15 VERY LITTLE GFR LEFT</content>
<content>ESRD GFR <15 ON SLIME PLANT OPERATOR HELPER</content>
<content></content> Glomerular filtration rate/1.73 sq M pre dicted among non-blacks [Volume Rate/Area] in Serum or Plasma by Creatinine-based formula (MDRD) 40 mL/min [facility] ([facility]) ID Date Data Source [id number] 05/21/2020 08:20:00 AM EST [facility] ([facility]) Name Value Range Interpretation Code Description Data Cathy rce(s) Supporting Document(s) Magnesium 1.3 mg/dL 1.8-2.4 [facility] ID Date Data Source [id number] 05/21/2020 08:20:00 AM EST [facility] ([facility]) Name Value Range Interpretation Code Description Data Cathy rce(s) Supporting Document(s) Hemoglobin A1c/Hemoglobin.total in Blood 6.0 % [facility] ([facility]) Lab Result Notes: Pre-Diabetes 5.7 - 6.4 % Diabetes = or > 6.5% Glucose mean value [Mass/volume] in Blood Estimated fr om glycated hemoglobin 125 mg/dL 60-110 [facility] ID Date Data Source [id number] 05/21/2020 08:20:00 AM EST [facility] ([facility]) Name Value Range Interpretation Code Description Data Cathy rce(s) Supporting Document(s) Magnesium, Serum Laboratory test result [facility]) Hemoglobin A1c/Hemoglobin.total in Blood Laboratory test result [facility] ([facility]) ID Date Data Source [id number] 05/21/2020 08:19:00 AM EST [facility] ([facility]) Name Value Range Interpretation Code Description Data Cathy rce(s) Supporting Document(s) Leukocytes [#/volume] in Blood by Automated count 6.8 x10*3/UL 4.1-10 .9 [facility] ([facility]) NOTE: CBC VERIFIED Erythrocytes [#/volume] in Blood by Automated count 3.99 x10*6/UL 4.2 0-6.30 [facility] ([facility]) MCV 85.4 fL 80.0-97.0 [facility] Hemoglobin [Mass/volume] in Blood 11.6 g/dL 12.0-18.0 [facility] ([facility]) Hematocrit [Volume Fraction] of Blood by Automated count 34.1 % 3 7.0-51.0 [facility] ([facility]) MCHC 34.1 g/dL 31.0-38.0 [facility] MCH 29.1 pg 26.0-32.0 [facility] Erythrocyte distribution width [Ratio] by Automated count 13.8 % 11.6-13.7 [facility] ([facility]) Platelets [#/volume] in Blood by Automated count 277 x10*3/UL 140-440 [facility] ([facility]) MPV 7.9 FL 7.8-11.0 [facility] Lymph % 24.8 % 10.0-58.5 [facility] Mid % 6.4 % 1.7-9.3 [facility] Neut % 68.8 % 37.0-92.0 [facility] Lymph # 1.6 x10*3/UL 0.6-4.1 [facility] ([facility]) Mid # 0.6 x10*3/UL 0.1-0.6 [facility] ([facility]) Neut # 4.6 x10*3/UL 2.0-7.8 [facility] ([facility]) ID Date Data Source [id number] 02/11/2020 01:54:00 AM EST [facility] ([facility]) Name Value Range Interpretation Code Description Data Cathy rce(s) Supporting Document(s) Erythrocyte sedimentation rate by Westergren method 62 mm/hr 0-30 [facility] ([facility]) Urate [Mass/volume] in Serum or Plasma 7.7 mg/dL 2.6-6.0 [facility] ([facility]) ID Date Data Source [id number] 02/11/2020 01:54:00 AM EST [facility] ([facility]) Name Value Range Interpretation Code Description Data Cathy rce(s) Supporting Document(s) White Blood Count 14.6 10 4.0-10.0 [facility] ([facility]) Red Blood Count 4.09 10 4.00-5.40 [facility] ([facility]) Hemoglobin 11.7 g/dL 12.0-15.5 [facility] Hematocrit 36.4 % 36.0-47.0 [facility] ([facility]) Mean Corpuscular Volume 89.0 fl 80.0-96.0 [facility] ([facility]) Mean Corpuscular HGB Conc 32.1 g/dL 32.0-36.5 [facility] ([facility]) Mean Corpuscular Hemoglobin 28.6 pg 27.0-33.0 [place] [facility] ([facility]) Platelet Count, Automated 243 10 150-450 MEDE NT ([facility]) Neutrophils % 79.9 % 36.0-66.0 MEDENT ([facility]) Red Cell Distribution Width 14.3 % 11.5-14.5 IL DENT ([facility]) [place] % 10.4 % 0.0-5.0 MEDENT ([facility]) Eos % 0.2 % 0.0-3.0 MEDENT ([facility]) Lymph % 8.9 % 24.0-44.0 MEDENT ([facility]) Immature Granulocyte % 0.3 % 0-3.0 MEDENT ([facility]) Baso % 0.3 % 0.0-1.0 MEDENT ([facility]) Nucleated Red Blood Cell % 0.0 % 0-0 MED ENT ([facility]) Lymph # 1.3 10 1.5-5.0 MEDENT ([facility]) Neutrophils # 11.6 10 1.5-8.5 MEDENT ([facility]) Baso # 0.0 10 0.0-0.2 MEDENT ([facility]) Eos # 0.0 10 0.0-0.5 MEDENT ([facility]) [place] # 1.5 10 0.0-0.8 MEDENT ([facility]) Procedure Social History No Information Vital Signs ID Date Data Source UNK Name Value Range Interpretation Code Description Data Source(s) Body height 59.8 [in_i] 59.8 [in_i] Ventura L antonia - [facility] Result Comment: Result placed secondary from cm, converted to Inches Body weight Measured 194 lb 0 oz 194 lb 0 oz As cension Idamlis - [facility] Result Comment: Result placed secondary from kg, converted to lbs Systolic blood pressure 150 mm[Hg] Above high normal 150 m m[Hg] Ventura Idalmis - [facility] Diastolic blood pressure 92 mm[Hg] Above high normal 92 m m[Hg] Ventura Idalmis - [facility] Heart rate 88 /min Normal (applies to non-numeric resul ts) 88 /min Ventura Idalmis - [facility] Respiratory rate 16 /min Normal (applies to non-numeric results) 16 /min Ventura Idalmis - [facility] Systolic blood pressure 134 mm[Hg] 134 mm[Hg] M EDENT ([facility]) Heart rate 72 /min 72 /min MEDENT ([facility]) Body height 60 [in_i] 60 [in_i] MEDENT ([facility]) 5'0" Body weight 190.00 [lb_av] 190.00 [lb_av] MEDEN T ([facility]) Body mass index (BMI) [Ratio] 37.1 kg/m2 37.1 k g/m2 [facility] Diastolic blood pressure 80 mm[Hg] 80 mm[Hg] MEDENT ([facility]) Systolic blood pressure 130 mm[Hg] 130 mm[Hg] [facility] Diastolic blood pressure 78 mm[Hg] 78 mm[Hg] MEDENT ([facility]) Heart rate 80 /min 80 /min MEDENT ([facility]) Body height 60 [in_i] 60 [in_i] MEDENT ([facility]) 5'0" Body weight 191.00 [lb_av] 191.00 [lb_av] MEDEN T ([facility]) Body mass index (BMI) [Ratio] 37.3 kg/m2 37.3 k g/m2 [facility] Oxygen saturation in Arterial blood by Pulse oximetry 97 % 97 % [facility] ([facility], [facility]) Body temperature 98.4 [degF] 98.4 [degF] [facility], [facility]) Body height 60 [in_i] 60 [in_i] [facility] ([facility], [facility]) 5'0" Body mass index (BMI) [Ratio] 34.2 kg/m2 34.2 k g/m2 [facility] ([facility], [facility]) Systolic blood pressure 134 mm[Hg] 134 mm[Hg] [facility], [facility]) Diastolic blood pressure 80 mm[Hg] 80 mm[Hg] [facility] ([facility], [facility]) Heart rate 86 /min 86 /min MEDENT ([facility], [facility]) Respiratory rate 16 /min 16 /min [facility] ( [facility], [facility]) Body weight 175.00 [lb_av] 175.00 [lb_av] MEDEN T ([facility], [facility]) Heart rate 108 /min 108 /min MEDENT ([facility]) Heart rate 100 /min 100 /min [facility] ([facility], [facility]) Respiratory rate 20 /min 20 /min [facility] ( [facility], [facility]) Oxygen saturation in Arterial blood by Pulse oximetry 99 % 99 % [facility] ([facility]) Body temperature 98.5 [degF] 98.5 [degF] [facility] ([facility], [facility]) Body weight 194.00 [lb_av] 194.00 [lb_av] MEDEN T ([facility], [facility]) Systolic blood pressure 136 mm[Hg] 136 mm[Hg] [facility], [facility]) Diastolic blood pressure 82 mm[Hg] 82 mm[Hg] [facility] ([facility], [facility]) Body height 60 [in_i] 60 [in_i] [facility] ([facility], [facility]) 5'0" Body mass index (BMI) [Ratio] 37.9 kg/m2 37.9 k g/m2 [facility] ([facility]) Patient Treatment Plan of Care Planned Activity Planned Date Details Description Data Source (s) Bactroban 2% topical ointment 10/10/2020 08:09:00 PM EDT [facility] Bactrim DS 800 mg-160 mg oral tablet 10/10/2020 08:09:00 PM EDT [facility] Meclizine Hydrochloride 25 MG Oral Tablet 10/10/2020 07:53:00 PM ED T [facility]ura Idalmis - [facility]
--- NOTE | 2021-01-15 05:33 | HPEPDOC ---
[facility] Medical History & Physical Date of Admission Jan 15, 2021 Date of Service: Jan 15, 2021 Attending Physician: KIRILL ARSHAD MD History and Physical CHIEF COMPLAINT: [75 y/o female brought in by daughter in law for evaluation of altered mental status] HISTORY OF PRESENT ILLNESS: [This is a 75 y/o female with a pmh of htn, gerd and arthritis who presents to the ED with her daughter in law who brought her in for evaluation of altered mental status. Patient is alert but a somewhat poor historian and daughter in law Franchesca provides most of the history. Apparently, last night patient was found wandering her apartment building, in which she lives alone in her apartment, and was found to be rambling and having delusions. Daughter in law states that patient was simply saying things that did not make sense. Apparently, patient has had some mild episodes of confusion in the past, but never to this degree. Patient herself tells me that she would like to go home but is being told that she cant. Patient does complain of some chronic lower extremity wounds worse on the right than the left. Daughter in law tells me that patient has been known to pick at these. Patient tells me that physically otherwise she feels fine and denies any fevers, chills, chest pains, sob, abd pain, dysuria, n/v/d/c.] PAST MEDICAL HISTORY: 1. [See HPI PAST SURGICAL HISTORY: 1. [Ex lap]. 2. [Tubal ligation]. 3. [Unspec. b/l knee surgeries]. SOCIAL HISTORY: Resides in: [Apartment by herself Tobacco use:[Denies] ETOH: [Denies] Illicit drug use: [Denies] FAMILY HISTORY: Reviewed - none pertinent ALLERGIES: Please see below. REVIEW OF SYSTEMS: CONSTITUTIONAL: [Denies fevers, chills]. HEENT: [Denies uri sx]. CARDIOVASCULAR: [Denies chest pain, palpitations]. RESPIRATORY: [Denies sob]. GASTROINTESTINAL: [Denies abd pain, n/v/d/c]. GENITOURINARY: [Denies dysuria]. SKIN: [See HPI]. MUSCULOSKELETAL: [Denies acute joint/back pain]. ENDOCRINE: [Denies hx of DM]. HEMATOLOGIC/LYMPHATIC: [Denies hx of vte]. HOME MEDICATIONS: Please see below. PHYSICAL EXAMINATION: VITAL SIGNS: Please see below. GENERAL APPEARANCE: [This is a 75 y/o female who appears stated age. She is alert to questioning but not entirely oriented. She is not in any distrses]. HEENT: [No mass or lesion. EOMI. No scleral icterus. Nares patent. Oral mucosa moist]. CARDIOVASCULAR: [Regular rate, rhythm. No murmurs, rubs, gallops]. LUNGS: [Good air flow b/l. No wheezing, rales, rhonchi]. ABDOMEN: [Soft, nontender]. MUSCULOSKELETAL: [No joint deformity noted]. EXTREMITIES: [There are many small wounds to the b/l lower extremities that are at various stages of healing. Some of the lesions have surrounding excoriations. Some are scabbed over. I notice no areas of erythema or drainage. No pedal edema. Pulses intact. Good capillary refill]. NEUROLOGICAL: [Speech clear. Alert to person, place. No focal deficits]. PSYCHIATRIC: [Patient is confused]. LABORATORY DATA: See below. IMAGING: [CXR: FINDINGS: Lungs: Unremarkable. No consolidation. Pleural spaces: Unremarkable. No pleural effusion. No pneumothorax. Heart/Mediastinum: Unremarkable. No cardiomegaly. Bones/joints: Unremarkable. IMPRESSION: No acute findings Head CT: FINDINGS: Brain: Normal. No hemorrhage. Unremarkable white matter. No mass effect. Cerebral ventricles: No ventriculomegaly. Paranasal sinuses: Visualized sinuses are unremarkable. No fluid levels. Mastoid air cells: Visualized mastoid air cells are well aerated. Bones/joints: Unremarkable. No acute fracture. Soft tissues: Unremarkable. IMPRESSION: No acute intracranial abnormality. ] MICROBIOLOGY: Please see below. ASSESSMENT: [This is a 75 y/o female with a pmh of htn, gerd and arthritis who presents to the ED with her daughter in law who brought her in for evaluation of altered mental status. Patient is alert but a somewhat poor historian and daughter in law Franchesca provides most of the history. Apparently, last night patient was found wandering her apartment building, in which she lives alone in her apartment, and was found to be rambling and having delusions. Workup in the ED only notable for possible JEFFREY. Current cr is 1.73, with no reliable baseline.]. . PLAN: 1. [AMS - Most likely dementia related. Infectious workup grossly negative. CT imaging of the head negative as well - Discussed with patient and family the possibility of home care vs. assisted living. Both patient and family were amiable to the conversation - Social consult placed - Will monitor patient's behaviors and mentation - admit to med surg 2. 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 HTN - will continue home meds once med reconciliation has been completed DVT Prophylaxis - lovenox]. Vital Signs Vital Signs Date Time Temp Pulse Resp B/P (MAP) Pulse Ox O2 Delivery O2 Flow Rate FiO2 01/15/21 01:28 96 16 122/66 (84) 98 Room Air 01/14/21 22:06 98.8 Laboratory Data Labs 24H Laboratory Tests 2 01/15/21 00:27: Urine Color YELLOW, Urine Appearance HAZY, Urine pH 5.0, Urine Specific [place] 1.023, Urine Protein 3+H, Urine Glucose (UA) NEGATIVE, Urine Ketones NEGATIVE, Urine Blood NEGATIVE, Urine Nitrite NEGATIVE, Urine Bilirubin NEGATIVE, Urine Urobilinogen 0.2, Urine Leukocyte Esterase 1+H, Urine WBC (Auto) 5H, Urine RBC (Auto) 5H, Urine Hyaline Casts (Auto) 4, Urine Bacteria (Auto) NEGATIVE, Urine Squamous Epithelial Cells 7, Urine Mucus (Auto) SMALL, Urine Sperm (Auto) 01/15/21 00:28: Immature Granulocyte % (Auto) 0.2, Neutrophils (%) (Auto) 60.8, Lymphocytes (%) (Auto) 27.5, Monocytes (%) (Auto) 8.6H, Eosinophils (%) (Auto) 2.2, Basophils (%) (Auto) 0.7, Neutrophils # (Auto) 5.1, Lymphocytes # (Auto) 2.3, Monocytes # (Auto) 0.7, Eosinophils # (Auto) 0.2, Basophils # (Auto) 0.1, Nucleated Red Blood Cells % (auto) 0.0, Prothrombin Time 13.9, Prothromb Time International Ratio 1.03, Activated Partial Thromboplast Time 30.2, Blood Gas Bicarbonate Standard 18.1L, Arterial Blood pH 7.358, Arterial Blood Partial Pressure CO2 29.9L, Arterial Blood Partial Pressure O2 92.2, Arterial Blood Total CO2 17.4L, Arterial Blood HCO3 16.4L, Arterial Blood Base Excess -7.9L, Arterial Blood Oxygen Saturation 96.5, Anion Gap 8, Glomerular Filtration Rate 30.7L, Osmolality 299, Lactic Acid Level 1.1, Calcium Level 8.8, Total Bilirubin 0.2, Direct Bilirubin < 0.1, Aspartate Amino Transf (AST/SGOT) 23, Alanine Aminotransferase (ALT/SGPT) 12, Alkaline Phosphatase 88, Ammonia 23, Total Creatine Kinase 130, Creatine Kinase MB 3.5, Creatine Kinase MB Relative Index 2.69, Troponin I < 0.02, Total Protein 7.5, Albumin 3.3, Albumin/Globulin Ratio 0.8L, Thyroid Stimulating Hormone (TSH) 0.432, Salicylates Level 15.6, Urine Opiates Screen NEGATIVE, Urine Methadone Screen NEGATIVE, Acetaminophen Level 5.3L, Urine Barbiturates Screen NEGATIVE, Urine Phencyclidine Screen NEGATIVE, Urine Amphetamines Screen NEGATIVE, Urine Benzodiazepines Screen NEGATIVE, Urine Cocaine Metabolite Screen NEGATIVE, Urine Cannabinoids Screen NEGATIVE, Ethyl Alcohol Level < 0.003 CBC/BMP Laboratory Tests 01/15/21 00:28 Microbiology Microbiology 01/15/21 Respiratory Virus Panel (PCR) (SHANAE) - Final, Complete 01/15/21 Urine Culture, Received Pending Home Medications Scheduled Amitriptyline HCl (Amitriptyline HCl) 100 Mg Tab, 100 MG PO DAILY Colchicine (Colcrys) 0.6 Mg Tab, 0.6 MG PO DAILY Colchicine (Colchicine) 0.6 Mg Tablet, 0.6 MG PO DAILY for gout pain Esomeprazole Magnesium (Nexium) 40 Mg Cap, 40 MG PO DAILY Hydrochlorothiazide (Hydrochlorothiazide) 12.5 Mg Tab, 25 MG PO DAILY Magnesium Oxide (Magnesium Oxide) 400 Mg Tab, 800 MG PO BID Meclizine HCl (Meclizine HCl) 25 Mg Tab, 25 MG PO BID Metoprolol Succinate (Toprol Xl) 100 Mg Tab, 100 MG PO DAILY Ranitidine HCl (Ranitidine HCl) 150 Mg Tab, 1 TAB PO DAILY Sulfamethoxazole/Trimethoprim (Bactrim Ds Tablet) 1 Tab Tab, 1 TAB PO Q12H Valacyclovir HCl (Valtrex) 1 Gm Tab, 1 GM PO TID Scheduled PRN Acetaminophen with Codeine (Tylenol with Codeine #3 Tablet) 1 Tab Tab, 1 TAB PO Q4H PRN for PAIN Ketorolac Tromethamine (Ketorolac Tromethamine) 10 Mg Tablet, 1 TAB PO Q6HP PRN for pain Miscellaneous Medications Cephalexin (Cephalexin) 500 Mg Cap Hydroxychloroquine Sulfate (Hydroxychloroquine Sulfate) 200 Mg Tab Metoprolol Succinate (Metoprolol Succinate) 100 Mg Tab Allergies Coded Allergies: No Known Allergies (Unverified , 06/10/16) A-FIB/CHADSVASC A-FIB History Current/History of A-Fib/PAF?: No Current PO Anticoag Therapy: No PAM HOPKINS Jan 15, 2021 05:33
--- NOTE | 2021-01-15 05:42 | REPVR ---
PROCEDURE INFORMATION: Exam: US Retroperitoneal Limited, Kidneys Exam date and time: 01/15/2021 5:32 AM Age: 75 years old Clinical indication: Abnormal findings; Abnormal lab test; Other: Pankaj TECHNIQUE: Imaging protocol: Real-time ultrasound of the retroperitoneum with image documentation. Examination was focused on the kidneys. COMPARISON: No relevant prior studies available. FINDINGS: Limitations: Limited by patient's body habitus. Right kidney: Unremarkable 11.2 cm right kidney. Left kidney: Left kidney could not be visualized. IMPRESSION: No acute findings. Electronically signed by: Abundio Hou On 01/15/2021 05:41:35 AM
[2021-01-15 06:05] LABS: INR 1.03; PROTHROMBIN TIME 13.9 SECONDS (12.7-14.5)
[2021-01-15 06:06] LABS: PARTIAL THROMBOPLASTIN TIME 30.7 SECONDS (25.9-37.0)
[2021-01-15] MEDS ORDERED: METO1TAB33 PO (06:29)
[2021-01-15] MEDS ORDERED: HYDR200T3 PO (06:29)
[2021-01-15] MEDS ORDERED: HYDR-3490 PO (06:29)
[2021-01-15] MEDS ORDERED: FAMO20TA PO (06:31)
[2021-01-15] MEDS ORDERED: EXCETAB33 PO (06:31)
[2021-01-15] MEDS ORDERED: HOME MED LIST COMPLETE! XX SCH (06:35)
[2021-01-15 07:04] VITALS: BP 154/92
[2021-01-15 08:41] LABS: FOLATE 13.6 NG/ML (>5.4)
[2021-01-15] MEDS: ENOXAPARIN 30MG/0.3ML SYRINGE (J1650 PER 10MG) SC SCH (09:44)
[2021-01-15] MEDS: ACETAMINOPHEN TAB 650MG DOSE (2X325MG) PO PRN ×2 (09:45→21:18)
[2021-01-15 10:03] LABS: BASO # 0.1 10^3/uL (0.0-0.2); BASO % 0.7 % (0.0-1.0); EOS # 0.3 10^3/uL (0.0-0.5); EOS % 3.3 % (0.0-3.0); HEMATOCRIT 32.5 % (36.0-47.0); HEMOGLOBIN 10.3 g/dl (12.0-15.5); LYMPH # 2.3 10^3/uL (1.5-5.0); MEAN CORPUSCULAR HEMOGLOBIN 27.3 pg (27.0-33.0); MEAN CORPUSCULAR HGB CONC 31.7 g/dl (32.0-36.5); MEAN CORPUSCULAR VOLUME 86.2 fl (80.0-96.0); MONO # 0.7 10^3/uL (0.0-0.8); MONO % 8.8 % (2.0-8.0); NEUTROPHILS # 4.2 10^3/uL (1.5-8.5); NEUTROPHILS % 55.7 % (36.0-66.0); PLATELET COUNT, AUTOMATED 325 10^3/uL (150-450); RED BLOOD COUNT 3.77 10^6/uL (4.00-5.40); WHITE BLOOD COUNT 7.5 10^3/uL (4.0-10.0)
[2021-01-15 10:04] LABS: CALCIUM LEVEL 8.8 MG/DL (8.8-10.2); CREATININE FOR GFR 1.49 MG/DL (0.55-1.30); GLOMERULAR FILTRATION RATE 36.5 (>39); MAGNESIUM LEVEL 1.3 MG/DL (1.8-2.4); POTASSIUM SERUM 3.3 MEQ/L (3.5-5.1)
[2021-01-15] MEDS ORDERED: POTASSIUM CHLORIDE 10MEQ SR TABLET PO ONE (11:00)
[2021-01-15] MEDS: MAG SULF 1GM/100ML (MAG RUN) 1 GM in IV 1 EA IV SCH ×3 (11:00→13:52)
[2021-01-15] MEDS ORDERED: EXCEDRIN MIGRAINE TABLET PO PRN (11:45)
--- NOTE | 2021-01-15 11:50 | IPNPDOC ---
Text Note Date of Service The patient was seen on 01/15/21. NOTE Subjective: Patient is a 75-year-old female with a PMHx of HTN, Arthritis, GERD who presented to the ER with her daughter for evaluation of confusion. Patient lives alone in an apartment building was found rambling and having delusions. Patient was admitted to the hospital service for further evaluation and treatment. Patient was seen and examined at the bedside. Patient denies any chest pain, shortness of breath or palpitations. Has not experience any nausea, vomiting, abdominal pain, diarrhea, or urinary discomfort. Objective: Vitals (See below) General: Lying in bed, no acute distress, comfortable, AAOx3 (person, place, year only), doesn't know president HEENT: NC, AT CVS: +S1S2 Lungs: Fair air entry b/l, -w/r/r Abdomen: Soft, ND, NT Extremities: - Edema, - Calf tenderness Skin: Lower tremors with multiple scabs Imaging: CXR 01/14: No acute findings. CT Head 01/14: No acute intracranial abnormality. Renal US 01/15: No acute findings. Assessment and plan: Confusion - likely 2/2 worsening dementia, less likely 2/2 infectious etiology - Clinically patient is oriented to person, place and year - Physicals without any focal deficits - No evidence of infection - Imaging noted above - Will start PT / OT and PFS on board for likely placement JEFFREY - Cr baseline of 1.0 (08/2020) - Cr slowly improving - c/w IV fluid hydration; will reduce rate Hypokalemia - Will supplement Hypomagnesemia - Will supplement HTN - BP moderately controlled - Will resume Metoprolol; Will hold HCTZ Arthritis - c/w Hydroxychloroquine Mood disorder - c/w Amitriptyline GERD - Will resume PPI and Famotidine DVT prophylaxis - c/w Lovenox Disposition: - Awaiting clinical improvement - Will likely need placement VS,Fishbone, I+O VS, Fishbone, I+O Laboratory Tests 01/15/21 00:28 01/15/21 05:31 01/15/21 05:36 Vital Signs Date Time Temp Pulse Resp B/P (MAP) Pulse Ox O2 Delivery O2 Flow Rate FiO2 01/15/21 07:04 96.9 86 18 154/92 (112) 98 Room Air I&O- Last 24 Hours up to 6 AM 01/15/21 05:59 Intake Total 1000 ml Balance 1000 ml ELVIS GRIDER MD Jan 15, 2021 11:50
[2021-01-15] MEDS: FAMOTIDINE 20 MG TAB PO SCH (12:30)
[2021-01-15] MEDS: PANTOPRAZOLE 40MG TAB (PROTONIX) PO SCH (12:32)
[2021-01-15] MEDS: METOPROLOL SUCC (TopROL XL) 100MG *XL* TAB PO SCH (12:32)
[2021-01-15] MEDS: MECLIZINE 25 MG TABLET PO SCH ×2 (13:04→21:18)
[2021-01-15] MEDS: HYDROXYCHLOROQUINE 200 MG TAB PO SCH (13:04)
[2021-01-15 14:00] VITALS: BP 137/80
[2021-01-15] MEDS: AMITRIPTYLINE 50 MG TAB PO SCH (21:18)
[2021-01-15 22:00] VITALS: BP 127/77
[2021-01-16 06:45] LABS: BASO % 0.4 % (0.0-1.0); EOS # 0.3 10^3/uL (0.0-0.5); EOS % 5.6 % (0.0-3.0); HEMATOCRIT 32.5 % (36.0-47.0); HEMOGLOBIN 10.2 g/dl (12.0-15.5); LYMPH # 1.5 10^3/uL (1.5-5.0); LYMPH % 29.7 % (24.0-44.0); MEAN CORPUSCULAR HEMOGLOBIN 27.6 pg (27.0-33.0); MEAN CORPUSCULAR HGB CONC 31.4 g/dl (32.0-36.5); MEAN CORPUSCULAR VOLUME 87.8 fl (80.0-96.0); MONO # 0.4 10^3/uL (0.0-0.8); MONO % 8.3 % (2.0-8.0); NEUTROPHILS # 2.9 10^3/uL (1.5-8.5); NEUTROPHILS % 55.6 % (36.0-66.0); PLATELET COUNT, AUTOMATED 257 10^3/uL (150-450); WHITE BLOOD COUNT 5.2 10^3/uL (4.0-10.0)
[2021-01-16 06:51] VITALS: BP 148/86
[2021-01-16 07:18] LABS: BLOOD UREA NITROGEN 20 MG/DL (7-18); CALCIUM LEVEL 8.4 MG/DL (8.8-10.2); CARBON DIOXIDE LEVEL 21 MEQ/L (21-32); CHLORIDE LEVEL 112 MEQ/L (98-107); CREATININE FOR GFR 0.95 MG/DL (0.55-1.30); GLOMERULAR FILTRATION RATE > 60.0 (>39); GLUCOSE, FASTING 88 MG/DL (70-100); MAGNESIUM LEVEL 1.7 MG/DL (1.8-2.4); SODIUM LEVEL 139 MEQ/L (136-145)
[2021-01-16] MEDS ORDERED: MAG SULF 1GM/100ML (MAG RUN) 1 GM in IV 1 EA IV ONE (07:40)
[2021-01-16] MEDS: MECLIZINE 25 MG TABLET PO SCH ×2 (09:50→20:23)
[2021-01-16] MEDS: HYDROXYCHLOROQUINE 200 MG TAB PO SCH (09:51)
[2021-01-16] MEDS: METOPROLOL SUCC (TopROL XL) 100MG *XL* TAB PO SCH (09:51)
[2021-01-16] MEDS: FAMOTIDINE 20 MG TAB PO SCH (09:51)
[2021-01-16] MEDS: PANTOPRAZOLE 40MG TAB (PROTONIX) PO SCH (09:51)
[2021-01-16] MEDS: ENOXAPARIN 30MG/0.3ML SYRINGE (J1650 PER 10MG) SC SCH (09:52)
--- NOTE | 2021-01-16 11:13 | IPNPDOC ---
Text Note Date of Service The patient was seen on 01/16/21. NOTE Subjective: Patient is a 75-year-old female with a PMHx of HTN, Arthritis, GERD who presented to the ER with her daughter for evaluation of confusion. Patient lives alone in an apartment building was found rambling and having delusions. Patient was admitted to the hospital service for further evaluation and treatment. Patient was seen and examined at the bedside. Patient is sitting up in chair eating breakfast and watching television. Patient denies any chest pain, shortness of breath, palpitations, cough, nausea, vomiting, abdominal pain, diar jerome, or urinary discomfort. Overnight patient did experience some confusion and required reorientation. Objective: Vitals (See below) General: Patient is sitting up in a chair eating breakfast appears comfortable, not in any acute distress. She is awake, alert, oriented to person, place and year HEENT: Atraumatic and normocephalic CVS: +S1S2 Lungs: Fair air entry b/l, no wheezing, rales or rhonchi Abdomen: Soft, nondistended, nontender Extremities: No evidence of edema Skin: Lower extremities with multiple scabs Imaging: CXR 01/14: No acute findings. CT Head 01/14: No acute intracranial abnormality. Renal US 01/15: No acute findings. Assessment and plan: Confusion - likely 2/2 worsening dementia / sun-downing, less likely 2/2 infectious etiology - Patient remains oriented to person, place and year - Again, no focal deficits on exam - No evidence of infection - Imaging noted above - Cleared PT / OT - however may still require placement - will discuss with family - PFS on board for likely placement s/p JEFFREY - Cr baseline of 1.0 (08/2020) - Cr slowly improving - Will DC IV fluids s/p Hypokalemia - Will supplement Hypomagnesemia - Will again supplement HTN - BP moderately controlled - c/w Metoprolol; Will continue to hold HCTZ Arthritis - c/w Hydroxychloroquine Mood disorder - c/w Amitriptyline GERD - c/w PPI and Famotidine DVT prophylaxis - c/w Lovenox Disposition: - Awaiting clinical improvement - Will likely need placement VS,Fishbone, I+O VS, Fishbone, I+O Laboratory Tests 01/16/21 06:17 Vital Signs Date Time Temp Pulse Resp B/P (MAP) Pulse Ox O2 Delivery O2 Flow Rate FiO2 01/16/21 09:51 83 148/86 01/16/21 06:51 97.4 18 93 Room Air I&O- Last 24 Hours up to 6 AM 01/16/21 06:00 Intake Total 940 ml Output Total 450 ml Balance 490 ml ELVIS GRIDER MD Jan 16, 2021 11:13
--- NOTE | 2021-01-16 13:24 | ECGEPIP ---
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
[2021-01-16 14:20] VITALS: BP 123/67
[2021-01-16] MEDS: ACETAMINOPHEN TAB 650MG DOSE (2X325MG) PO PRN (18:17)
[2021-01-16] MEDS: AMITRIPTYLINE 50 MG TAB PO SCH (20:23)
[2021-01-16 22:00] VITALS: BP 170/84
[2021-01-17 06:00] VITALS: BP 172/87
[2021-01-17 06:42] LABS: BASO % 0.4 % (0.0-1.0); EOS # 0.4 10^3/uL (0.0-0.5); HEMATOCRIT 31.4 % (36.0-47.0); LYMPH # 1.8 10^3/uL (1.5-5.0); LYMPH % 24.5 % (24.0-44.0); MEAN CORPUSCULAR HEMOGLOBIN 27.4 pg (27.0-33.0); MEAN CORPUSCULAR HGB CONC 31.8 g/dl (32.0-36.5); MONO # 0.6 10^3/uL (0.0-0.8); MONO % 7.7 % (2.0-8.0); NEUTROPHILS # 4.4 10^3/uL (1.5-8.5); PLATELET COUNT, AUTOMATED 268 10^3/uL (150-450); RED BLOOD COUNT 3.65 10^6/uL (4.00-5.40); WHITE BLOOD COUNT 7.1 10^3/uL (4.0-10.0)
[2021-01-17 07:07] LABS: BLOOD UREA NITROGEN 18 MG/DL (7-18); CARBON DIOXIDE LEVEL 22 MEQ/L (21-32); CHLORIDE LEVEL 111 MEQ/L (98-107); CREATININE FOR GFR 0.86 MG/DL (0.55-1.30); GLOMERULAR FILTRATION RATE > 60.0 (>39); GLUCOSE, FASTING 85 MG/DL (70-100); MAGNESIUM LEVEL 1.3 MG/DL (1.8-2.4); POTASSIUM SERUM 4.1 MEQ/L (3.5-5.1); SODIUM LEVEL 139 MEQ/L (136-145)
[2021-01-17 07:21] VITALS: BP 123/70
[2021-01-17] MEDS: PANTOPRAZOLE 40MG TAB (PROTONIX) PO SCH (09:37)
[2021-01-17] MEDS: FAMOTIDINE 20 MG TAB PO SCH (09:37)
[2021-01-17] MEDS: MECLIZINE 25 MG TABLET PO SCH ×2 (09:37→20:55)
[2021-01-17] MEDS: ENOXAPARIN 30MG/0.3ML SYRINGE (J1650 PER 10MG) SC SCH (09:37)
[2021-01-17] MEDS: HYDROXYCHLOROQUINE 200 MG TAB PO SCH (09:37)
[2021-01-17] MEDS: METOPROLOL SUCC (TopROL XL) 100MG *XL* TAB PO SCH (09:38)
--- NOTE | 2021-01-17 11:39 | IPNPDOC ---
Text Note Date of Service The patient was seen on 01/17/21. NOTE Subjective: Patient is a 75-year-old female with a PMHx of HTN, Arthritis, GERD who presented to the ER with her daughter for evaluation of confusion. Patient lives alone in an apartment building was found rambling and having delusions. Patient was admitted to the hospital service for further evaluation and treatment. Patient was seen and examined at the bedside. Patient denies any chest pain, shortness breath, palpitations, nausea, vomiting, abdominal pain or diarrhea. Has not experience any urinary discomfort, has worked with physical therapy and has been cleared for discharge home. Patient's family is in the process of establishing 24/7 care at home. Objective: Vitals (See below) General: Patient is laying in bed, appears to be comfortable, not in any distress. She is awake, alert, oriented to person and place but not to time HEENT: NC, AT CVS: +S1S2 Lungs: Auscultation appears to be fair bilaterally without any evidence of wheezing, crackles or rhonchi Abdomen: Abdomen remains soft without any distention or tenderness Extremities: LE are without any edema Skin: LE with multiple scabs Imaging: CXR 01/14: No acute findings. CT Head 01/14: No acute intracranial abnormality. Renal US 01/15: No acute findings. Assessment and plan: Confusion - likely 2/2 worsening dementia / sun-downing, less likely 2/2 infectious etiology - Patient remains oriented to person, place and year - Again, no focal deficits on exam - No evidence of infection - Imaging noted above - Cleared PT / OT - however may still require placement - will discuss with family - Family is in the process of establishing 24/7 care; PFS on board s/p JEFFREY - Cr has normalized - s/p IV fluids s/p Hypokalemia Hypomagnesemia - Will again supplement - Will add oral magnesium supplementation HTN - BP moderately controlled - c/w Metoprolol; Will continue to hold HCTZ at this time Arthritis - c/w Hydroxychloroquine Mood disorder - c/w Amitriptyline GERD - c/w PPI and Famotidine DVT prophylaxis - c/w Lovenox Disposition: - Awaiting clinical improvement - DC when 24/7 care is established VS,Emmie, I+O VS, Wilnerbone, I+O Laboratory Tests 01/17/21 06:11 Vital Signs Date Time Temp Pulse Resp B/P (MAP) Pulse Ox O2 Delivery O2 Flow Rate FiO2 01/17/21 09:38 105 144/88 01/17/21 07:21 98.8 17 94 Room Air I&O- Last 24 Hours up to 6 AM 01/17/21 06:00 Intake Total 1570 ml Output Total 930 ml Balance 640 ml ELVIS GRIDER MD Jan 17, 2021 11:39
[2021-01-17] MEDS: MAGNESIUM OXIDE 400MG TAB (MAG-OX) PO SCH ×2 (11:53→20:55)
[2021-01-17] MEDS: MAG SULF 1GM/100ML (MAG RUN) 1 GM in IV 1 EA IV ONE ×2 (12:13→12:22)
[2021-01-17 13:30] VITALS: BP 126/78
[2021-01-17] MEDS: ACETAMINOPHEN TAB 650MG DOSE (2X325MG) PO PRN (15:56)
[2021-01-17 20:25] VITALS: BP 109/62
[2021-01-17] MEDS: AMITRIPTYLINE 50 MG TAB PO SCH (20:55)
[2021-01-18 04:20] VITALS: BP 139/86
[2021-01-18] MEDS: ACETAMINOPHEN TAB 650MG DOSE (2X325MG) PO PRN ×2 (04:24→10:19)
[2021-01-18 06:36] LABS: BASO % 0.3 % (0.0-1.0); EOS # 0.3 10^3/uL (0.0-0.5); EOS % 3.5 % (0.0-3.0); HEMATOCRIT 33.6 % (36.0-47.0); HEMOGLOBIN 10.5 g/dl (12.0-15.5); LYMPH # 1.9 10^3/uL (1.5-5.0); LYMPH % 19.4 % (24.0-44.0); MEAN CORPUSCULAR HEMOGLOBIN 26.9 pg (27.0-33.0); MEAN CORPUSCULAR HGB CONC 31.3 g/dl (32.0-36.5); MEAN CORPUSCULAR VOLUME 86.2 fl (80.0-96.0); MONO % 9.8 % (2.0-8.0); NEUTROPHILS # 6.4 10^3/uL (1.5-8.5); NEUTROPHILS % 66.6 % (36.0-66.0); PLATELET COUNT, AUTOMATED 272 10^3/uL (150-450); WHITE BLOOD COUNT 9.7 10^3/uL (4.0-10.0)
[2021-01-18 06:55] LABS: BLOOD UREA NITROGEN 17 MG/DL (7-18); CARBON DIOXIDE LEVEL 26 MEQ/L (21-32); CHLORIDE LEVEL 107 MEQ/L (98-107); CREATININE FOR GFR 0.93 MG/DL (0.55-1.30); GLOMERULAR FILTRATION RATE > 60.0 (>39); GLUCOSE, FASTING 104 MG/DL (70-100); MAGNESIUM LEVEL 1.5 MG/DL (1.8-2.4); POTASSIUM SERUM 4.4 MEQ/L (3.5-5.1); SODIUM LEVEL 138 MEQ/L (136-145)
[2021-01-18] MEDS: MAGNESIUM OXIDE 400MG TAB (MAG-OX) PO SCH (08:29)
[2021-01-18] MEDS: FAMOTIDINE 20 MG TAB PO SCH (08:30)
[2021-01-18] MEDS: PANTOPRAZOLE 40MG TAB (PROTONIX) PO SCH (08:30)
[2021-01-18] MEDS: MECLIZINE 25 MG TABLET PO SCH (08:30)
[2021-01-18 08:31] VITALS: BP 136/91
[2021-01-18] MEDS: ENOXAPARIN 30MG/0.3ML SYRINGE (J1650 PER 10MG) SC SCH (08:31)
[2021-01-18] MEDS: HYDROXYCHLOROQUINE 200 MG TAB PO SCH (08:31)
[2021-01-18] MEDS: METOPROLOL SUCC (TopROL XL) 100MG *XL* TAB PO SCH (08:31)
[2021-01-18] MEDS ORDERED: MAGN400T2 PO (13:43)
--- NOTE | 2021-01-18 13:45 | DS.PDOC ---
Discharge Summary General Date of Admission Jan 15, 2021 at 04:34 Date of Discharge 01/18/2021 Discharge Summary PROCEDURES PERFORMED DURING STAY: [None]. ADMITTING DIAGNOSES / DISCHARGE DIAGNOSES: s/p Confusion - likely 2/2 worsening dementia / sun-downing, less likely 2/2 infectious etiology s/p JEFFREY s/p Hypokalemia Hypomagnesemia HTN Arthritis Mood disorder GERD DVT prophylaxis COMPLICATIONS/CHIEF COMPLAINT: Confusion HISTORY OF PRESENT ILLNESS: Patient is a 75-year-old female with a PMHx of HTN, Arthritis, GERD who presented to the ER with her daughter for evaluation of confusion. Patient lives alone in an apartment building was found rambling and having delusions. Patient was admitted to the hospital service for further evaluation and treatment. Patient was seen and examined at the bedside. Patient denies any chest pain, sharp spelled palpitations, nausea, vomiting or abdominal pain. She is seen sitting up in chair watching television. Patient has worked with physical [employer] herapy has been cleared for discharge home with 24/7 care. HOSPITAL COURSE: s/p Confusion - likely 2/2 worsening dementia / sun-downing, less likely 2/2 infectious etiology - Patient is oriented to person and place, without any focal deficits noted on physical exam - She remains hemodynamically stable and afebrile - No evidence of infection - Imaging noted above - Cleared PT / OT - Family was able to establish near 24/7 care at home s/p JEFFREY - Cr has normalized - s/p IV fluids s/p Hypokalemia Hypomagnesemia - Slowly improving - Will c/w oral supplementation on discharge HTN - BP well controlled - Will discontinue HCTZ at this time - c/w Metoprolol Arthritis - c/w Hydroxychloroquine Mood disorder - c/w Amitriptyline GERD - c/w PPI and Famotidine DVT prophylaxis - c/w Lovenox DISCHARGE MEDICATIONS: Please see below. ALLERGIES: Please see below. PHYSICAL EXAMINATION ON DISCHARGE: Vitals (See below) General: Sitting up in a chair, appears to be comfortable without any acute distress. awake / alert, oriented to person/place HEENT: Atraumatic and normocephalic CVS: +S1S2 Lungs: Auscultation appears to be free of any rhonchi, wheezing or crackles Abdomen: Soft without any distention or tenderness appreciated Extremities: No edema Skin: Multiple scabs noted a lower extremities LABORATORY DATA: Please see below. IMAGING: CXR 01/14: No acute findings. CT Head 01/14: No acute intracranial abnormality. Renal US 01/15: No acute findings. ACTIVITY: [As tolerated]. DISCHARGE PLAN: Follow-up with primary care provider within the next 7 days Remain compliant with treatment plan and medications Return to the ER if you experience any problems DISPOSITION: Home with services DISCHARGE CONDITION: [Stable]. TIME SPENT ON DISCHARGE: 35 minutes. Vital Signs/I&Os Vital Signs Date Time Temp Pulse Resp B/P (MAP) Pulse Ox O2 Delivery O2 Flow Rate FiO2 01/18/21 08:31 107 136/91 01/18/21 04:20 98.6 18 96 Room Air I&O- Last 24 Hours up to 6 AM 01/18/21 06:00 Intake Total 970 ml Output Total 700 ml Balance 270 ml Laboratory Data Labs 24H Laboratory Tests 2 01/18/21 06:15: Immature Granulocyte % (Auto) 0.4, Neutrophils (%) (Auto) 66.6H, Lymphocytes (%) (Auto) 19.4L, Monocytes (%) (Auto) 9.8H, Eosinophils (%) (Auto) 3.5H, Basophils (%) (Auto) 0.3, Neutrophils # (Auto) 6.4, Lymphocytes # (Auto) 1.9, Monocytes # (Auto) 1.0H, Eosinophils # (Auto) 0.3, Basophils # (Auto) 0.0, Nucleated Red Blood Cells % (auto) 0.0, Anion Gap 5L, Glomerular Filtration Rate > 60.0, Calcium Level 9.0, Magnesium Level 1.5L CBC/BMP Laboratory Tests 01/18/21 06:15 Microbiology Microbiology 01/15/21 Respiratory Virus Panel (PCR) (SHANAE) - Final, Complete 01/15/21 Urine Culture - Final, Complete Discharge Medications Scheduled Amitriptyline HCl (Amitriptyline HCl) 100 Mg Tab, 100 MG PO QHS, (Reported) Esomeprazole Magnesium (Nexium) 40 Mg Cap, 40 MG PO DAILY, (Reported) Famotidine (Famotidine) 20 Mg Tablet, 20 MG PO DAILY, (Reported) Hydroxychloroquine Sulfate (Hydroxychloroquine Sulfate) 200 Mg Tablet, 200 MG PO DAILY, (Reported) Meclizine HCl (Meclizine HCl) 25 Mg Tab, 25 MG PO BID, (Reported) Metoprolol Succinate (Metoprolol Succinate) 100 Mg Tab.er.24h, 100 MG PO DAILY, (Reported) Scheduled PRN Aspirin/Acetaminophen/Caffeine (Excedrin Migraine Caplet) 1 Each Tablet, 2 TAB PO BID PRN for HEADACHE, (Reported) Allergies Coded Allergies: No Known Allergies (Unverified , 06/10/16) ELVIS GRIDER MD Jan 18, 2021 13:45
== END 2021-01-18 14:15 | disposition home health service (06) | DRG 884 ==
LOC: M ED 22:06 → M ED INP 01-15 04:34 → ENRESERVDT 01-15 05:13 → ENRESERVTM 01-15 05:13 → M MS5PR 01-15 06:40
PROVIDERS: ADMIT Internal Medicine; ATTEND Internal Medicine
DX: F03.90 Unspecified dementia, unspecified severity, without behavioral disturbance, psychotic disturbance, mood disturbance, and anxiety (principal); N17.9 Acute kidney failure, unspecified; E87.6 Hypokalemia; E83.42 Hypomagnesemia; I10 Essential (primary) hypertension; M06.9 Rheumatoid arthritis, unspecified; F39 Unspecified mood [affective] disorder; K21.9 Gastro-esophageal reflux disease without esophagitis; Z20.822 Contact with and (suspected) exposure to COVID-19; Z79.899 Other long term (current) drug therapy; Z90.5 Acquired absence of kidney

== ENCOUNTER 2021-01-20 12:15 | Emergency (ER) | payer MEDICARE ==
[~2021-01-20 12:15] MED LIST changes: +EXCETAB33 PO; +FAMO20TA PO; +HYDR-3490 PO; +HYDR200T3 PO; +MAGN400T2 PO; +METO1TAB33 PO
--- OUTSIDE RECORDS SUMMARY | 2021-01-20 12:22 | CCD | Continuity of Care Document ---
Author Organization Unknown Address Unknown Phone Unavailable Care Team Providers Care Wellness Spa Manager Name Role Phone Ed Ramos MD AUTM [phone] Abundio Doran MD AUTM [phone] Problems Active Problems Provider Date Pure hypercholesterolemia Onset: 000 Gastroesophageal reflux disease Onset: 0 Labile essential hypertension Onset: Urinary incontinence Ed Ramos M.D. Onset: 07/23/2016 Social History Type Date Description Comments Sex Unknown ETOH Use Denies alcohol use Tobacco Use Start: Unknown Patient has never smoked Allergies and adverse reactions Description No Known Drug Allergies Medications Active [...] 1 by mouth every night at bedtime 30katelynn Ramos M.D. 11/2014 Metoprolol Succinate ER 100mg [...] CPT Code Status Date Vaccine Lot # 22112 Refused 01/13/2018 Influenza Virus Vaccine, Quadrivalent (Cciiv4), Derived From Cell 26748 Refused 01/13/2018 Zoster Vaccine 48310 Refused 01/13/2018 Pneumovax 23 [id number] Refused 01/13/2018 Tetanus/Diptheria(Td)Toxoids Preservative Free 96623 Refused 01/13/2018 Prevnar 13 53674 Refused 12/09/2017 Prevnar 13 06644 Refused 12/28/2013 Influenza Virus Vaccine 18836 Refused 01/24/2013 Influenza Virus Vaccine 12122 Refused 08/02/2012 Influenza Virus Vaccine 92277 Refused 04/21/2012 Zoster Vaccine 74481 Refused 04/21/2012 Pneumovax 23 84963 Refused 04/21/2012 Adacel- Tetanus Diphtheria P ertussis 37558 Refused 02/15/2011 Influenza Virus Vaccine Vital Signs [...] Date Facility Test Result H/L Range Note CBC With Differential 01/15/2021 [facility] [address] [place] [address] [phone] White Blood Count 8.3 10 Normal 4.0-10.0 Red Blood Count 4.01 10 Normal 4.00-5.40 Hemoglobin 10.9 g/dL Low 12.0-15.5 Hematocrit 34.0 % Low 36.0-47.0 Mean Corpuscular Volume 84.8 fl Normal 80.0-96.0 Mean Corpuscular Hemoglobin 27.2 pg Normal 27.0-33.0 Mean Corpuscular HGB Conc 32.1 g/dL Normal 32.0-36.5 Red Cell Distribution Width 15.2 % High 11.5-14.5 Platelet Count, Automated 331 10 Normal 150-450 Neutrophils % 60.8 % Normal 36.0-66.0 Lymph % 27.5 % Normal 24.0-44.0 [place] % 8.6 % High 2.0-8.0 Eos % 2.2 % Normal 0.0-3.0 Baso % 0.7 % Normal 0.0-1.0 Immature Granulocyte % 0.2 % Normal 0-3.0 Nucleated Red Blood Cell % 0.0 % Normal 0-0 Neutrophils # 5.1 10 Normal 1.5-8.5 Lymph # 2.3 10 Normal 1.5-5.0 [place] # 0.7 10 Normal 0.0-0.8 Eos # 0.2 10 Normal 0.0-0.5 Baso # 0.1 10 Normal 0.0-0.2 PT & Aptt 01/15/2021 [facility] nter [address] [place] [address] [phone] Prothrombin Time 13.9 seconds Normal 12.7-14.5 Inr 1.03 Normal 1 Partial Thromboplastin Time 30.2 seconds Normal 25.9-37.0 Laboratory test finding 01/15/2021 [facility] [address] [place] [address] [phone] Ammonia 23 uMOL/L Normal <32 Lactic Acid Sepsis Protocol 1.1 mmol/L Normal 0.4-2.0 2 Cardiac Marker Panel 01/15/2021 [facility] enter [address] [place] [address] [phone] CPK Creatine Phosphokinase 130 U/L Normal 26-19 2 CK-MB Value Mass 3.5 NG/ML Normal <3.6 MB/CK Relative Index 2.69 Normal < Or =4 3 Troponin I < 0.02 NG/ML Normal < 0.10 4 Liver Profile 01/15/2021 [facility] nter [address] [place] [address] [phone] Ast/Sgot 23 U/L Normal 7-37 Alt/SGPT 12 U/L Normal 12-78 Alkaline Phosphatase 88 U/L Normal 45-117 Bilirubin,Total 0.2 mg/dL Normal 0.2-1.0 Bilirubin,Direct < 0.1 mg/dL Normal 0.0-0.2 Total Protein 7.5 GM/DL Normal 6.4-8.2 Albumin 3.3 GM/DL Normal 3.2-5.2 Albumin/Globulin Ratio 0.8 Low 1.2-2.2 Basic Metabolic Profile 01/15/[address] [address] [phone] Glucose, Fasting 96 mg/dL Normal 70-100 Blood Urea Nitrogen 37 mg/dL High 7-18 Creatinine For GFR 1.73 mg/dL High 0.55-1.30 Glomerular Filtration Rate 30.7 Low >39 5 Sodium Level 138 mEq/L Normal 136-145 Potassium Serum 3.8 mEq/L Normal 3.5-5.1 6 Chloride Level 109 mEq/L High 98-107 Carbon Dioxide Level 21 mEq/L Normal 21-32 Anion Gap 8 mEq/L Normal 8-16 Calcium Level 8.8 mg/dL Normal 8.8-10.2 Laboratory test finding 01/15/2021 [facility] [address] [place] [address] [phone] Osmolality Serum 299 MOSM/KG Normal 280-301 Ethyl Alcohol (Ethanol) < 0.003 % Normal 0.000-0.010 Salicylate Level 15.6 mg/dL Normal 5.0-30.0 Acetaminophen Level 5.3 UG/ML Low 10.0-30.0 Thyroid Stimulating Hormone 0.432 uIU/ML Normal 0.358-3.740 Respiratory Panel 01/15/[address] [address] [phone] Respiratory Panel This respiratory <SEE NOTE> 7 Arterial Blood Gas 01/15/[address] [address] [phone] ABG pH (Arterial) 7.358 units Normal 7.350-7.450 ABG Partial Pressure Co2 29.9 mmHg Low 35.0-45.0 ABG Partial Pressure O2 92.2 mmHg Normal 75.0-100.0 ABG Total Co2 17.4 mEq/L Low 23.0-31.0 ABG Hco3 16.4 mEq/L Low 22.0-26.0 ABG Base Excess -7.9 Low -2.0-2.0 ABG Standard Hco3 18.1 mEq/L Low 22.0-26.0 ABG O2 Saturation 96.5 % Normal 95.0-99.0 Drug Eval Toxicology ED Only 01/15/[address] [address] [phone] Amphetamines Level Urine NEGATIVE Normal Negativ e Barbiturates Urine NEGATIVE Normal Negative Benzodiazepines Urine NEGATIVE Normal Negative Cannabinoids Urine NEGATIVE Normal Negative Cocaine Metabolite Urine NEGATIVE Normal Negative Methadone Urine NEGATIVE Normal Negative Opiates Urine NEGATIVE Normal Negative Phencyclidine Urine NEGATIVE Normal Negative 8 Ua W/ Reflex To Culture 01/15/[address] [address] [phone] Appearance, Urine RFX HAZY Normal Clear Color, Urine RFX YELLOW Normal Yellow PH,Urine RFX 5.0 units Normal 5.0-9.0 Specific [place] Ur Auto RFX 1.023 Normal 1.002-1.035 Protein, Urine Auto RFX 3+ mg/dL High Negative Glucose, Urine (Ua) Auto RFX NEGATIVE mg/dL Normal Negative Ketone, Urine Auto RFX NEGATIVE mg/dL Normal Negative Urobilinogen, Urine Auto RFX 0.2 mg/dL Normal 0.0-2.0 Bilirubin, Urine Auto RFX NEGATIVE Normal Negative Nitrite, Urine Auto RFX NEGATIVE Normal Negative Leukocyte Esterase Ur Auto RFX 1+ High Negative Blood, Urine Blood RFX NEGATIVE Normal Negative WBC, Urine Auto RFX 5 /HPF High 0-3 RBC, Urine Auto RFX 5 /HPF High 0-3 Bacteria, Urine Auto RFX NEGATIVE Normal Negative Squam Epithelial Cell Ur Aurfx 7 /HPF Normal 0-6 Mucus, Urine RFX SMALL Normal Negative Hyaline Cast, Urine Auto RFX 4 /LPF Normal 0-1 Complete Blood Count 09/10/2020 [place] [employer] Casting Director: [place] [address] [phone] WBC 6.9 x10*3/UL 4.1 - 10.9 RBC [...] 2.0 - 7.8 Comprehensive Chem Profile 09/10/2020 [facility] [employer] [employer] Casting Director: [place] [address] [phone] Glucose 97 mg/dL 74 - 99 9 BUN 20 mg/dL High 7 - 18 [...] Low >60 GFR >= 60 mL/min >60 10 1 THERAPUTIC HUMAN INR VALUES INDICATIONS NORMAL RANGES PROPHYLAXIS/TREATMENT OF: VENOUS THROMBOSIS 2.0-3.0 PULMONARY EMBOLISM 2.0-3.0 PREVENTION OF SYSTEMIC EMBOLISM FROM: TISSUE HEART VALVES 2.0-3.0 ACUTE MYOCARDIAL INFARCTION 2.0-3.0 VALVULAR HEART DISEASE 2.0-3.0 ATRIAL FIBRILLATION 2.0-3.0 MECHANICAL VALVES(HIGH RISK) 2.5-3.5 RECURRENT MYOCARDIAL INFARCTION 2.5-3.5 2 Y/N query for Sepsis Lactate Rule: Y 3 DIAGNOSIS CRITERIA MMB ng/ml Relative Index (RI) NON-AMI < or = 5 N/A ASHBY ZONE > 5 < or = 4 AMI > 5 > 4 4 Troponin I Reference Interva l for [employer] LOCI: 99th Percentile= 0.00-0.045 ng/ml Risk Stratification: <= 0.10 ng/ml Decreased Risk for Adverse Clinical Events. 0.10-1.50 ng/ml Increased Risk for Adv erse Clinical Events. Evaluation of additional criterion and/or repeat testing in 2-6 hours is suggested to rule out myocardial damage. >= 1.50 ng/ml Indicative of Myocardial Injury. 5 Units are mL/min/1.73 m2 Chronic Kidney Disease Staging per NKF: Stage I & II GFR >=60 Normal to Mildly Decreased Stage III GFR 30-59 Moderately Decreased Stage IV GFR 15-29 Severely Decreased Stage V GFR <15 Very Little GFR Left ESRD GFR <15 on AUTOMOBILE MECHANIC RADIATOR 6 Testing was performed on a S LIGHTLY hemolyzed specimen. Suggest recollection of specimen for more accurate test results. 7 This respiratory PCR panel d etects Influenza A H1, H3 and 2009 H1 viruses, Influenza B virus, Resp iratory Syncytial Virus, Human metapneumovirus, Parainfluenza virus 1, 2, 3 and 4, Adenovirus, Rhinovirus/Enterovirus, Coronavirus HKU1, NL63, OC43, 229E and SARS-CoV-2 (COVID 19), Bordetella pertussis, Bordetella parapertussis, Mycoplasma pneumoniae and Chlamydia pneumoniae. NEGATIVE by MULTIPLEXED NUCLEIC ACID PCR SARS-CoV-2 (COVID 19) NEGATIVE - SARS-CoV-2 (COVID19) 8 ALL PRESUMPTIVE POSITIVE FINDINGS ARE UNCONFIRMED THRESHOLD IN NG/ML AMPHETAMINES/METHAMPHET 1000 BARBITURATES 200 BENZODIAZEPINES 200 CANNABINOIDS (THC) 50 COCAINE METABOLITE 300 METHADONE 300 OPIATES 300 PHENCYCLIDINE 25 RESULTS ARE FOR MEDICAL PURPOSES ONLY. ALL URINE SPECIMENS WILL BE SAVED FOR 3 DAYS. IF CONFIRMATION OF A PRESUMPTIVE POSITIVE SCREEN RESULT IS DESIRED, CALL CHEMISTRY ([phone]) AND REQUEST URINE TO BE SENT TO REFERENCE LAB. FOR A LIST OF CLOSELY RELATED COMPOUNDS PLEASE CALL THE LAB. 9 100-125 mg/dL PRE-DIABET ES/FASTING >126 mg/dL DIABETES/FASTING 10 CHRONIC KIDNEY DISEASE STAGI NG PER NKF STAGE I & II GFR >= 60 NORMAL TO MILDLY DECREASED STAGE III GFR 30-59 MODERATELY DECREASED STAGE IV GFR 15-29 SEVERELY DECREASED STAGE V GFR <15 VERY LITTLE GFR LEFT ESRD GFR <15 ON AUTOMOBILE MECHANIC RADIATOR Procedures Date Code Description Status 09/10/2020 67912 Office/Outpatient Established Mo d MDM 30-39 Min Completed 07/16/2011 [id number] Bone Mineral Density Test Comple benjamin 07/12/2009 [id number] Mammogram Completed Medical Devices Description No Information Available Encounters Type Date Location Provider Dx Diagnosis Office Visit 09/10/2020 1:00p [facility] Ed Ramos M.D. I12.9 Hypertensive [...] joint Ed Ramos M.D. Plan of Treatment Future Appointment(s):* 01/17/2021 1:00 pm - GRICELDA Smith JR at [facility] 09/10/2020 - Ed Ramos M.D.* I12.9 Hypertensive chronic kidney disease w stg 1-4/uns chr kdny * N18.30 Chronic kidney disease, stage 3 unspecified * E78.00 Pure hypercholesterolemia, unspecified * E83.42 Hypomagnesemia * K21.9 Gastro-esophageal reflux disease without esophagitis * M13.0 Polyarthritis, unspecified * R73.01 Impaired fasting glucose * Z96.651 Presence of right artificial knee joint * Z96.652 Presence of left artificial knee joint * * Comments:* 1. Hypertensive CKD w stg 1-4/uns chr kdny: Blood pressure is stable on [...]
--- OUTSIDE RECORDS SUMMARY | 2021-01-20 12:22 | CCD | Continuity of Care Document ---
Author Organization Unknown Address Unknown Phone Unavailable Care Team Providers Care Accounting Consultant Name Role Phone Ed Ramos MD AUTM [phone] Abundio Doran MD AUTM [phone] Problems Active Problems Provider Date Pure hypercholesterolemia [...] CPT Code Status Date Vaccine Lot # [id number] Refused 01/13/2018 Influenza Virus Vaccine, Quadrivalent (Cciiv4), Derived From Cell 49216 Refused 01/13/2018 Zoster Vaccine 34964 Refused 01/13/2018 Pneumovax 23 55003 Refused 01/13/2018 Tetanus/Diptheria(Td)Toxoids Preservative Free 62310 Refused 01/13/2018 Prevnar 13 96303 Refused 12/09/2017 Prevnar 13 53745 Refused 12/28/2013 Influenza Virus Vaccine 91642 Refused 01/24/2013 Influenza Virus Vaccine 28586 Refused 08/02/2012 Influenza Virus Vaccine 49077 Refused 04/21/2012 Zoster Vaccine 08436 Refused 04/21/2012 Pneumovax 23 95476 Refused 04/21/2012 Adacel- Tetanus Diphtheria P ertussis 09045 Refused 02/15/2011 Influenza Virus Vaccine Vital Signs [...] H/L Range Note CBC With Differential 01/15/2021 [facility] [address] [place] [address] [phone] White Blood Count 8.3 10 Normal 4.0-10.0 [...] 36.0-66.0 Lymph % 27.5 % Normal 24.0-44.0 [place] % 8.6 % High 2.0-8.0 Eos % 2.2 % Normal 0.0-3.0 Baso % 0.7 % Normal 0.0-1.0 Immature Granulocyte % 0.2 % Normal 0-3.0 Nucleated Red Blood Cell % 0.0 % Normal 0-0 Neutrophils # 5.1 10 Normal 1.5-8.5 Lymph # 2.3 10 Normal 1.5-5.0 [place] # 0.7 10 Normal 0.0-0.8 Eos # 0.2 10 Normal 0.0-0.5 Baso # 0.1 10 Normal 0.0-0.2 PT & Aptt 01/15/2021 [facility] nter [address] [place] [address] [phone] Prothrombin Time 13.9 seconds Normal 12.7-14.5 Inr 1.03 Normal 1 Partial Thromboplastin Time 30.2 seconds Normal 25.9-37.0 Laboratory test finding 01/15/2021 [facility] [address] [place] [address] [phone] Ammonia 23 uMOL/L Normal <32 Lactic Acid Sepsis Protocol 1.1 mmol/L Normal 0.4-2.0 2 Cardiac Marker Panel 01/15/2021 [facility] enter [address] [place] [address] [phone] CPK Creatine Phosphokinase 130 U/L Normal 26-19 2 CK-MB Value Mass 3.5 NG/ML Normal <3.6 MB/CK Relative Index 2.69 Normal < Or =4 3 Troponin I < 0.02 NG/ML Normal < 0.10 4 Liver Profile 01/15/2021 [facility] nter [address] [place] [address] [phone] Ast/Sgot 23 U/L Normal 7-37 Alt/SGPT 12 U/L Normal 12-78 Alkaline Phosphatase 88 U/L Normal 45-117 Bilirubin,Total 0.2 mg/dL Normal 0.2-1.0 Bilirubin,Direct < 0.1 mg/dL Normal 0.0-0.2 Total Protein 7.5 GM/DL Normal 6.4-8.2 Albumin 3.3 GM/DL Normal 3.2-5.2 Albumin/Globulin Ratio 0.8 Low 1.2-2.2 Basic Metabolic Profile 01/15/[address] [address] [phone] Glucose, Fasting 96 mg/dL Normal 70-100 Blood [...] mg/dL Normal 8.8-10.2 Laboratory test finding 01/15/2021 [facility] [address] [place] [address] [phone] Osmolality Serum 299 MOSM/KG Normal 280-301 Ethyl Alcohol (Ethanol) < 0.003 % Normal 0.000-0.010 Salicylate Level 15.6 mg/dL Normal 5.0-30.0 Acetaminophen Level 5.3 UG/ML Low 10.0-30.0 Thyroid Stimulating Hormone 0.432 uIU/ML Normal 0.358-3.740 Respiratory Panel 01/15/[address] [address] [phone] Respiratory Panel This respiratory <SEE NOTE> 7 Arterial Blood Gas 01/15/[address] [address] [phone] ABG pH (Arterial) 7.358 units Normal 7.350-7.450 ABG Partial Pressure Co2 29.9 mmHg Low 35.0-45.0 ABG Partial Pressure O2 92.2 mmHg Normal 75.0-100.0 ABG Total Co2 17.4 mEq/L Low 23.0-31.0 ABG Hco3 16.4 mEq/L Low 22.0-26.0 ABG Base Excess -7.9 Low -2.0-2.0 ABG Standard Hco3 18.1 mEq/L Low 22.0-26.0 ABG O2 Saturation 96.5 % Normal 95.0-99.0 Drug Eval Toxicology ED Only 01/15/[address] [address] [phone] Amphetamines Level Urine NEGATIVE Normal Negativ e Barbiturates Urine NEGATIVE Normal Negative Benzodiazepines Urine NEGATIVE Normal Negative Cannabinoids Urine NEGATIVE Normal Negative Cocaine Metabolite Urine NEGATIVE Normal Negative Methadone Urine NEGATIVE Normal Negative Opiates Urine NEGATIVE Normal Negative Phencyclidine Urine NEGATIVE Normal Negative 8 Ua W/ Reflex To Culture 01/15/[address] [address] [phone] Appearance, Urine RFX HAZY Normal Clear Color, Urine RFX YELLOW Normal Yellow PH,Urine RFX 5.0 units Normal 5.0-9.0 Specific [place] Ur Auto RFX 1.023 Normal 1.002-1.035 Protein, [...] /LPF Normal 0-1 Complete Blood Count 09/10/2020 [place] [employer] Technician: [place] [address] [phone] WBC 6.9 x10*3/UL 4.1 - 10.9 RBC [...] 2.0 - 7.8 Comprehensive Chem Profile 09/10/2020 [facility] [employer]ero[employer] Technician: [place] [address] [phone] Glucose 97 mg/dL 74 - 99 9 [...] 4 Troponin I Reference Interva l for [employer] LOCI: 99th Percentile= 0.00-0.045 ng/ml Risk Stratification: [...] Little GFR Left ESRD GFR <15 on HULL GRINDER 6 Testing was performed on a S [...] LITTLE GFR LEFT ESRD GFR <15 ON HULL GRINDER Procedures Date Code Description Status 09/10/2020 51413 Office/Outpatient Established Mo d MDM 30-39 Min Completed 07/16/2011 [id number] Bone Mineral Density Test Comple benjamin 07/12/2009 [id number] Mammogram Completed Medical Devices Description No Information Available Encounters Type Date Location Provider Dx Diagnosis Office Visit 09/10/2020 1:00p [facility] Ed Ramos M.D. I12.9 Hypertensive [...] 1:00 pm - GRICELDA Smith JR at [facility] 09/10/2020 - Ed Ramos M.D.* [...]
--- OUTSIDE RECORDS SUMMARY | 2021-01-20 12:23 | CCD ---
Author Author [facility] Organization [facility] Address Unknown Phone Unavailable Care Team Providers Care Drag Out Worker Name Role Phone Restrepo, Marilou INSET CUTTER Unavailable Unavailable Restrepo, Marilou INSET CUTTER Unavailable Unavailable Restrepo, Marilou INSET CUTTER Unavailable Unavailable Restrepo, Marilou INSET CUTTER Unavailable Unavailable Restrepo, Marilou INSET CUTTER Unavailable Unavailable Restrepo, Marilou INSET CUTTER Unavailable Unavailable Restrepo, Marilou INSET CUTTER Unavailable Unavailable Restrepo, Marilou INSET CUTTER Unavailable Unavailable Restrepo, Marilou INSET CUTTER Unavailable Unavailable Restrepo, Marilou INSET CUTTER Unavailable Unavailable Restrepo, Marilou INSET CUTTER Unavailable Unavailable Restrepo, Marilou INSET CUTTER Unavailable Unavailable Restrepo, Marilou INSET CUTTER Unavailable Unavailable Ariela Ramos MD Unavailable Unavailable Ariela Ramos MD Unavailable Unavailable Ariela Ramos MD Unavailable Unavailable Ariela Ramos MD Unavailable Unavailable Arilea Ramos MD Unavailable Unavailable Ariela Ramos MD [...] Unavailable Unavailable Ariela Ramos MD Unavailable Unavailable Rachel F Ed MCKINLEY Unavailable Unavailable Ariela Ramos MD Unavailable Unavailable Ariela Rmaos MD Unavailable Unavailable Ariela Ramos MD Unavailable Unavailable Ariela Ramos MD Unavailable Unavailable Ariela Ramos MD Unavailable Unavailable Ariela Ramos MD Unavailable Unavailable Rachel F Ed MCKINLEY Unavailable Unavailable Rachel F Ed MCKINLEY Unavailable Unavailable Ariela Ramos MD Unavailable Unavailable Ariela Ramos MD Unavailable Unavailable Rachel F Ed MCKINLEY Unavailable Unavailable Ariela Ramos MD Unavailable Unavailable Rachel F Ed MCKINLEY Unavailable Unavailable Rachel F Ed MCKINLEY Unavailable Unavailable Rachel F Ed MCKINLEY Unavailable Unavailable Rachel F Ed MCKINLEY Unavailable Unavailable Rachel F Ed MCKINLEY Unavailable Unavailable Ariela Ramos MD Unavailable Unavailable [...] PICKERAL JR, J PAT PA-C Unavailable Unavailable PICKFERNANDO JR, J PAT PA-C Unavailable Unavailable PICKERAL [...] PICKERAL JR, J PAT PA-C Unavailable Unavailable PerdomoHanh Gwendolyn PA Unavailable Unavailable PerdomoHanh PA Unavailable Unavailable PerdomoHanh Gwendolyn PA Unavailable Unavailable PerdomoHanh Gwendolyn PA Unavailable Unavailable PerdomoHanh grijalva Gwendolyn PA Unavailable Unavailable PerdomoHanh Gwendolyn PA Unavailable Unavailable PerdomoHanh grijalva Gwendolyn PA Unavailable Unavailable PerdomoHanh Gwendolyn PA Unavailable Unavailable PerdomoHanh Gwendolyn PA Unavailable Unavailable PerdomoHanh grijalvalyn PA Unavailable Unavailable Lisette Gilliland Unavailable Unavailable [...] M LISETTE Unavailable Unavailable GRICELDA GILLILAND M ILSETTE Unavailable Unavailable GRICELDA GILLILAND Unavailable Unavailable Re-disclosure Warning The records that [...] is protected by Article 27-F of the [facility] Public Health law. If you continue you may have access to information: Regarding HIV / AIDS; Provided by facilities licensed or operated by the [facility] Office of Mental Health; or Provided by the [facility] Office for People With Developmental Disabilities. If such information is present, then the following [facility] mandated warning applies: This information has been [...] law may result in a fine or care home sentence or both. A general authorization for [...] TEST P EW-PEW 10/10/2020 07:46:00 PM EDT [facility] [place] Outpatient Attender: LISETTE GILLILANDAdmitter: LISETTE HO W-PE 10/10/2020 05:00:00 AM EDT - 10/10/2020 05:00:00 AM EDT [facility] Patient discharged. Outpatient Ancillary<content styleCode=" Bold">OLL MS4 Date(s): 10/10/20 - 10/11/20</content>
[address]
<content styleCode="Bold Underline">Encounter Diagnosis</content>
<content ID="[id number]">Unspecified open wound, left foot, initial encounter</content> (Discharge Diagnosis) -
<content ID="[id number]">Discharge Disposition: DSC to Home</content>
Attending Physician: Lisette Gilliland PA
Admitting Physician: Lisette Gilliland PA
Attender: GRICELDA GILLILANDAttender: Lisette GillilandAdmitter: Lisette Gilliland [facility] 10/10/2020 05:00:00 AM EDT - 10/11/2020 11:59:59 PM EDT [facility] Outpatient Attender: Ed Otero 09/10 01:00:00 PM EDT [facility] ([facility] ) Outpatient Attender: Ed Otero 05/21 07:30:00 AM EST [facility] ([facility] ) Outpatient Attender: Marilou garza 05/07/2020 10:30:00 AM EST [facility]) Outpatient Attender: PAT Otero 1 05/21/2019 02:20:00 PM EST [facility] ([facility] ) Outpatient Attender: Gwendolyn Ewingsumeet Figueroa Carol kay 01/24/2020 01:00:00 PM EDT [facility] ([facility] Medications Medication Brand Name Start Date Product Form Dose Route Admi nistrative Instructions Pharmacy Instructions Status Indications Reaction Description Data Source(s) 100 mg 01/05/2021 12:00:00 AM EDT tablet extended release 24 hr 30 TAKE ONE TABLET BY MOUTH EVERY DAY TAKE ONE TABLET BY MOUTH EVERY DAY SOLD: 01/07/2021 [facility] Meclizine Hydrochloride 25 MG Oral Tablet MECLIZINE HCL 10/25/2020 12:00:00 AM EDT tablet 60 TAKE ONE TABLET BY MOUTH TWI CE A DAY FOR DIZZINESS TAKE ONE TABLET BY MOUTH TWICE A DAY FOR DIZZINESS SOLD: 12/10/2020 [facility] Meclizine Hydrochloride 25 MG Oral Tablet MECLIZINE HCL 10/25/2020 12:00:00 AM EDT tablet 60 TAKE ONE TABLET BY MOUTH TWI CE A DAY FOR DIZZINESS TAKE ONE TABLET BY MOUTH TWICE A DAY FOR DIZZINESS SOLD: 01/07/2021 [facility] Meclizine Hydrochloride 25 MG Oral Tablet MECLIZINE HCL 10/25/2020 12:00:00 AM EDT tablet 60 TAKE ONE TABLET BY MOUTH TWI CE A DAY FOR DIZZINESS TAKE ONE TABLET BY MOUTH TWICE A DAY FOR DIZZINESS SOLD: 10/29/2020 [facility] Bactrim DS 800 mg-160 mg oral tablet [id number] 10/10/2020 08:09:00 P M EDT 1.0 By Mouth active 1 tab(s), PO (oral), bid, # 14 tab(s), M aintenance, Pharmacy: [facility]/pharmacy #[id number], 1 tab(s) PO (oral) bid,x7 day(s) [facility] Bactroban 2% topical ointment [id number] 10/10/2020 08:09:00 PM EDT 1.0 On Skin active 1 savanah, Topical, tid, # 30 g, Maintenance , Pharmacy: [facility]/pharmacy #[id number], 1 savanah Topical tid [facility] Meclizine Hydrochloride 25 MG Oral Tablet meclizine 25 mg oral tablet meclizine 25 mg oral tablet 10/10/2020 07:53:00 PM EDT 25.0 mg By Mouth active 25 mg = 1 tab(s), PO (oral), tid, PRN Dizziness, 0 Ref ill(s), Maintenance [facility] 100 mg 09/19/2020 12:00:00 AM EDT tablet [...] FOR UP TO 4 WEEKS SOLD: 05/07/2020 [facility] 2 % 05/07/2020 12:00:00 AM EST ointment 44 APPLY TO AFFECTED AREA(S) TWO TIMES A DAY FOR 7 DAYS APPLY TO AFFECTED AREA(S) TWO TIMES A DAY FOR 7 DAYS SOLD: 05/07/2020 [facility] Mupirocin 0.02 MG/MG Topical Ointment Mupirocin 05/07/2020 12:00:00 AM EST active [facility] ([facility]) Triamcinolone Acetonide 0.005 MG/MG Topical Ointment Triamci nolone Acetonide 05/07/2020 12:00:00 AM EST active [facility] 25 mg 05/07/2020 12:00:00 AM EST tablet [...] 03/20/2020 12:00:00 AM EST ORAL active [facility] ([facility]) Furosemide 20 MG Oral Tablet Furosemide 03/20/2020 12:00:00 AM EST ORAL active [facility] ([facility]) 20 mg 03/20/2020 12:00:00 AM [...] A DAY FOR 7 DAYS SOLD: 01/24/2020 [facility] 25 mg 01/24/2020 12:00:00 AM EDT tablet 60 TAKE ONE OR TWO TABLETS BY MOUTH UP TO EVERY 6 HOURS NEEDED FOR ITCHING TAKE ONE OR TWO TABLETS BY MOUTH UP TO EVERY 6 HOURS NEEDED FOR ITCHING SOLD: 01/24/2020 [facility] Hydroxyzine Hydrochloride 25 MG Oral Tablet Hydroxyzine HCL 01/24/2020 12:00:00 AM EDT active [facility] ([facility]) Sulfamethoxazole 800 MG / Trimethoprim 160 MG Oral Tab let Sulfamethoxazole/Trimethoprim DS 01/24/2020 12:00:00 AM EDT ORAL completed [facility] ([facility]) Petrolatum 0.41 MG/MG Topical Ointment [Aquaphor] Aquaphor 01/24/2020 12:00:00 AM EDT completed [facility] ([facility]) Meclizine Hydrochloride 25 MG Oral Tablet MECLIZINE HCL 01/21/2020 12:00:00 AM EDT tablet 60 TAKE ONE TABLET BY MOUTH TWI CE A DAY FOR DIZZINESS TAKE ONE TABLET BY MOUTH TWICE A DAY FOR DIZZINESS SOLD: 02/22/2020 [facility] Meclizine Hydrochloride 25 MG Oral Tablet MECLIZINE HCL 01/21/2020 12:00:00 AM EDT tablet 60 TAKE ONE TABLET BY MOUTH TWI CE A DAY FOR DIZZINESS TAKE ONE TABLET BY MOUTH TWICE A DAY FOR DIZZINESS SOLD: 03/26/2020 [facility] Meclizine Hydrochloride 25 MG Oral Tablet [...] CAPSULE BY MOUTH EVERY DAY SOLD: 04/23/2020 [facility] Esomeprazole 40 MG Delayed Release Oral Capsule ESOMEPRAZOLE MAGNESIUM 11/26/2019 12:00:00 AM EDT capsule,delayed release(DR/EC) 30 TAKE ONE CAPSULE BY MOUTH EVERY DAY TAKE ONE CAPSULE BY MOUTH EVERY DAY SOLD: 01/24/2020 [facility] Esomeprazole 40 MG Delayed Release Oral Capsule ESOMEPRAZOLE MAGNESIUM 11/26/2019 12:00:00 AM EDT capsule,delayed release(DR/EC) 30 TAKE ONE CAPSULE BY MOUTH EVERY DAY TAKE ONE CAPSULE BY MOUTH EVERY DAY SOLD: 02/22/2020 [facility] Esomeprazole 40 MG Delayed Release Oral Capsule ESOMEPRAZOLE MAGNESIUM 11/26/2019 12:00:00 AM EDT capsule,delayed release(DR/EC) 30 TAKE ONE CAPSULE BY MOUTH EVERY DAY TAKE ONE CAPSULE BY MOUTH EVERY DAY SOLD: 11/28/2019 [facility] 40 mg 11/26/2019 12:00:00 AM EDT capsule,delayed release (DR/EC) 30 TAKE ONE CAPSULE BY MOUTH EVERY DAY TAKE ONE CAPSULE BY MOUTH EVERY DAY SOLD: 03/26/2020 [facility] Esomeprazole 40 MG Delayed Release Oral [...] TABLET BY MOUTH AT BEDTIME SOLD: 01/24/2020 [facility] Hydroxychloroquine Sulfate 200 MG Oral Tablet HYDROXYCHLOROQ UINE SULFATE 08/31/2019 12:00:00 AM EDT tablet 30 TAKE ONE TABLE T BY MOUTH EVERY DAY TAKE ONE TABLET BY MOUTH EVERY DAY SOLD: 06/20/2020 [facility] Hydroxychloroquine Sulfate 200 MG Oral Tablet HYDROXYCHLOROQ UINE SULFATE 08/31/2019 12:00:00 AM EDT tablet 30 TAKE ONE TABLE T BY MOUTH EVERY DAY TAKE ONE TABLET BY MOUTH EVERY DAY SOLD: 12/27/2019 [facility] Hydroxychloroquine Sulfate 200 MG Oral [...] DAY SOLD: 07/23/2020 [facility] 25 mg 08/31/2019 12:00:00 AM EDT tablet 30 TAKE ONE TABLET BY MOUTH EVERY DAY TAKE ONE TABLET BY MOUTH EVERY DAY SOLD: 12/27/2019 [facility] Hydroxychloroquine Sulfate 200 MG Oral Tablet HYDROXYCHLOROQ UINE SULFATE 08/31/2019 12:00:00 AM EDT tablet 30 TAKE ONE TABLE T BY MOUTH EVERY DAY TAKE ONE TABLET BY MOUTH EVERY DAY SOLD: 02/22/2020 [facility] Hydroxychloroquine Sulfate 200 MG Oral Tablet HYDROXYCHLOROQ UINE SULFATE 08/31/2019 12:00:00 AM EDT tablet 30 TAKE ONE TABLE T BY MOUTH EVERY DAY TAKE ONE TABLET BY MOUTH EVERY DAY SOLD: 08/25/2020 [facility] Hydroxychloroquine Sulfate 200 MG Oral [...] Information Medicare Natl Govt Servic Medicare Primary [id number] Self [id number] MEDICARE [id number] Nicole [id number] A Medicare Natl Govt Servic Medicare Primary [id number] Self [id number] Medicare Natl Govt Servic Medicare Primary [id number] Self [id number] Medicare Natl Govt Servic Medicare Primary [id number] Self Medicare Natl Govt Servic Medicare Primary [id number] Self [id number] Medicare C [id number] SELF [id number] A Medicare Natl Govt Servic Medicare Primary [id number] Self [id number] MEDICAID [id number] Nicole [id number] [facility] Jurisdiction A [facility] [id number] SELF [id number] AARP [facility] Supplemental F [id number] SELF [id number] [facility] AARP Supplemental F [id number] SELF [id number] [facility] Opt Medigap Part B [id number] 11 [id number] Self [id number] [facility] Opt Medigap Part B Plan F [id number] Self Plan F Todays Option Medicare Commercial [id number] Self [id number] [employer]/Todays Optmcr Commercial [id number] Self [id number] [employer] Opt Medigap Part B [id number] Self [id number] [employer] Opt Medigap Part B [id number] 11 [id number] Self [id number] 11 [employer] Opt Medigap Part B [id number] Self [id number] 11 [employer] Opt Medigap Part B [id number] 11 [id number] Self [id number] MEDICAID [facility] COMPUTER S [facility] [id number] A [id number] [employer] OPTIONS [id number] SP [id number] TODAYS OPTIONS [id number] SP [id number] Todays Option Medicare Commercial Premier 100 PFFS [id number] Self Premier 100 PFFS Medicaid Medigap Part B [id number] Self 1 1 Today's Option Medicare Commercial [id number] Self Medicaid [place] Medigap Part B [id number] Self Medicare [facility] Medicare Primary [id number] Self Medicaid Medicaid [id number] Self Medicare Medicare Primary [id number] Self [place] 3 [id number] U SELF PAY 2 UNAVAILABLE 1 UNAVAILA BLE [facility] MEDICARE SOLUTIO 11 [id number] 1 [id number] MEDICARE [id number] SP [id number] MEDICARE COMPLETE [id number] SP [id number] HUMANA MEDICARE MCR [id number] A [id number] AARP O [id number] S [id number] MEDICARE C [id number] S [id number] A MEDICAID M [id number] S [id number] AARP HE[employer] CARE OPTIONS [id number] SP [id number] [place] [id number] SP [id number] MEDICARE [id number] SP [id number] A Medicaid Medigap Part B [id number] Self [id number] MEDICAID [id number] SP [id number] Medicaid Medigap Part B [id number] Self [id number] [place] Medigap Part B [id number] Self [id number] [facility] Options Medigap Part B [id number] Self [id number] Medicare Natl Gov't Servi Medicare Primary [id number] Self [id number] MEDICARE [id number] SP [id number] A Todays Option Medicare Commercial [id number] Self [id number] Medicaid Medigap Part B [id number] Self [id number] Todays Option Medicare Commercial [id number] Self [id number] Medicaid Medigap Part B [id number] Self [id number] Medicaid Medigap Part B [id number] Self [id number] Todays Option Medicare Commercial [id number] Self [id number] Problems, Conditions, and Diagnoses Code Display Name Description Problem Type Effective Dates Data Source(s) poss infection sores on foot poss infection sores on f oot Diagnosis 10/10/2020 05:00:00 AM EDT [facility] [id number] Unspecified open wound, left foot, initi al encounter Unspecified open wound, left foot, initial encounter Diagnosis 10/10/2020 05:00:00 AM E DT [facility] Surgeries/Procedures Procedure Description Date Indications Data Source(s) OFFICE OUTPATIENT VISIT 25 MINUTES 09/10/2020 12:00:00 AM EDT [facility] ([facility]) OFFICE OUTPATIENT VISIT 25 MINUTES 05/21/2020 12:00:00 AM EST [facility] ([facility]) OFFICE OUTPATIENT VISIT 15 MINUTES 03/20/2020 12:00:00 AM EST [facility] ([facility]) Results ID Date Data Source [id number] 01/15/2021 12:28:00 AM EDT [facility] Name Value Range Interpretation Code Description Data Cathy rce(s) Supporting Document(s) SARS-CoV-2 (COVID 19) NEGATIVE - SARS-CoV-2 (COVID19) [facility] This lab was ordered by [facility] a nd reported by [facility]. ID Date Data Source [id number] 01/15/2021 12:28:00 AM EDT [facility] Name Value Range Interpretation Code Description Data Cathy rce(s) Supporting Document(s) Barbiturates Urine Laboratory test result [facility] ([facility]) Amphetamines Level Urine Laboratory test result [facility] ([facility]) Benzodiazepines Urine Laboratory test result [facility] ([facility]) Cannabinoids Urine Laboratory test result [facility] ([facility]) Methadone Urine Laboratory test result [facility] ([facility]) Cocaine Metabolite Urine Laboratory test result [facility] ([facility]) Opiates Urine Laboratory test result [facility] ([facility]) Phencyclidine Urine Laboratory [facility] ALL PRESUMPTIVE POSITIVE FINDINGS AR E UNCONFIRMED THRESHOLD IN NG/ML AMPHETAMINES/METHAMPHET 1000 BARBITURATES [...] CLOSELY RELATED COMPOUNDS PLEASE CALL THE LAB. ID Date Data Source [id number] 01/15/2021 12:28:00 AM EDT [facility] Name Value Range Interpretation Code Description Data Cathy rce(s) Supporting Document(s) ABG Partial Pressure Co2 29.9 mmHg 35.0-45.0 [facility] ([facility]) ABG pH (Arterial) 7.358 units 7.350-7.450 [facility] ( [facility]) ABG Hco3 16.4 meq/L 22.0-26.0 [facility] ABG Partial Pressure O2 92.2 mmHg 75.0-100.0 [facility] ([facility]) ABG Total Co2 17.4 meq/L 23.0-31.0 [facility] ([facility]) ABG Standard Hco3 18.1 meq/L 22.0-26.0 [facility] ([facility]) ABG Base Excess -7.9 [facility] ([facility]) ABG O2 Saturation 96.5 % 95.0-99.0 [facility] ([facility]) ID Date Data Source [id number] 01/15/2021 12:28:00 AM EDT [facility] Name Value Range Interpretation Code Description Data Cathy rce(s) Supporting Document(s) Respiratory Panel Laboratory test result [facility] This respiratory PCR panel detects Influ taylor A H1, H3 and 2009 H1 viruses, Influenza B virus, Resp iratory Syncytial Virus, Human metapneumovirus, Parainfluenza virus 1, 2, 3 and 4, Adenovirus, Rhinovirus/Enterovirus, Coronavirus HKU1, NL63, OC43, 229E and SARS-CoV-2 (COVID 19), Bordetella pertussis, Bordetella parapertussis, Mycoplasma pneumoniae and Chlamydia pneumoniae. NEGATIVE by MULTIPLEXED NUCLEIC ACID PCR SARS-CoV-2 (COVID 19) NEGATIVE - SARS-CoV-2 (COVID19) ID Date Data Source [id number] 01/15/2021 12:28:00 AM EDT [facility] Name Value Range Interpretation Code Description Data Cathy rce(s) Supporting Document(s) Osmolality of Serum or Plasma 299 MOSM/KG 280-301 [facility] ([facility]) Ethanol [Mass/volume] in Serum or Plasma Laboratory test result 0.000 -0.010 [facility]) Salicylates [Mass/volume] in Serum or Plasma 15.6 mg/dL 5.0-30.0 [facility]) Acetaminophen [Mass/volume] in Serum or Plasma 5.3 UG/ML 10.0-30.0 [facility]) Thyrotropin [Units/volume] in Serum or Plasma by Detec tion limit <= 0.05 mIU/L 0.432 uIU/ML 0.358-3.740 [facility] ) ID Date Data Source [id number] 01/15/2021 12:28:00 AM EDT [facility] ([facility]) Name Value Range Interpretation Code Description Data Cathy rce(s) Supporting Document(s) Glucose, Fasting 96 mg/dL 70-100 [facility] ([facility]) Creatinine For GFR 1.73 mg/dL 0.55-1.30 [facility] ([facility]) Glomerular Filtration Rate 30.7 [facility] ([facility]) <content>Units are mL/min/1.73 m2</content>
<content></content>
<content>Chronic Kidney Disease Staging per NKF:</content>
<content></content>
<content>Stage I & II GFR >=60 Normal to Mildly Decreased</content>
<content>Stage III GFR 30- 59 Moderately Decreased</content>
<content>Stage IV GFR 15-29 Severely Decreased</content>
<content>Stage V GFR <15 Very Little GFR Left</content>
<content>ESRD GFR <15 on LEARNING OFFICER</content>
<content></content> Blood Urea Nitrogen 37 mg/dL 7-18 [facility] ([facility]) Chloride Level 109 meq/L 98-107 [facility] ([facility]) Sodium Level 138 meq/L 136-145 [facility] ([facility]) Potassium Serum 3.8 meq/L 3.5-5.1 [facility] ([facility]) Testing was performed on a SLIGHTLY hemo lyzed specimen. Suggest recollection of specimen for more accurate test results. Calcium Level 8.8 mg/dL 8.8-10.2 [facility] ([facility]) Anion Gap 8 meq/L 8-16 [facility] Carbon Dioxide Level 21 meq/L 21-32 [facility] ([facility]) ID Date Data Source [id number] 01/15/2021 12:28:00 AM EDT [facility]) Name Value Range Interpretation Code Description Data Cathy rce(s) Supporting Document(s) Ast/Sgot 23 U/L 7-37 [facility] Alt/SGPT 12 U/L 12-78 [facility] ([facility]) Bilirubin,Total 0.2 mg/dL 0.2-1.0 [facility] ([facility]) Alkaline Phosphatase 88 U/L 45-117 [facility] ([facility]) Total Protein 7.5 GM/DL 6.4-8.2 [facility] ([facility]) Albumin 3.3 GM/DL 3.2-5.2 [facility] ([facility]) Bilirubin,Direct Laboratory test result 0.0-0.2 [facility] ([facility]) Albumin/Globulin Ratio 0.8 1.2-2.2 [facility]) ID Date Data Source [id number] 01/15/2021 12:28:00 AM EDT [facility] ([facility]) Name Value Range Interpretation Code Description Data Cathy rce(s) Supporting Document(s) CPK Creatine Phosphokinase 130 U/L 26-192 [facility] ([facility]) CK-MB Value Mass 3.5 ng/mL [facility]) Troponin I Laboratory test result [facility] ([facility]) <content>Troponin I Reference Interval f or Siemens [place] LOCI:</content>
<content></content>
<content>99th Percentile= 0.00-0.045 ng/ml</content>
<content></content>
<content>Risk Stratification:</content>
<content><= 0.10 ng/ml Decreased Risk for Adverse Clinical</content>
<content>Events.</content>
<content>0.10-1.50 ng/ml Increased Risk for Adverse Clinical</content>
<content>Events. Evaluation of additional</content>
<content>criterion and/or repeat testing in 2-6</content>
<content>hours is suggested to rule out myocardial</content>
<content>damage.</content>
<content>>= 1.50 ng/ml Indicative of Myocardial Injury.</content>
<content></content> MB/CK Relative Index 2.69 [facility] ([facility]) <content>DIAGNOSIS CRITERIA</content>
<content>MMB ng/ml Relative Index (RI)</content>
<content>NON-AMI < or = 5 N/A</content>
<content>ASHBY ZONE > 5 < or = 4</content>
<content>AMI > 5 > 4</content>
<content></content> ID Date Data Source [id number] 01/15/2021 12:28:00 AM EDT [facility] ([facility]) Name Value Range Interpretation Code Description Data Cathy rce(s) Supporting Document(s) Ammonia [Mass/volume] in Blood 23 uMOL/L [facility] ([facility]) Lactate [Mass/volume] in Serum or Plasma 1.1 mmol/L 0.4-2.0 [facility] ([facility]) Y/N query for Sepsis Lactate Rule: Y ID Date Data Source [id number] 01/15/2021 12:28:00 AM EDT [facility] ([facility]) Name Value Range Interpretation Code Description Data Cathy rce(s) Supporting Document(s) Inr 1.03 [facility] THERAPUTIC HUMAN INR VALUES INDICATIONS NORMAL RANGES PROPHYLAXIS/TREATMENT OF: VENOUS THROMBOSIS 2.0-3.0 PULMONARY EMBOLISM 2.0-3.0 PREVENTION OF SYSTEMIC EMBOLISM FROM: TISSUE HEART VALVES 2.0-3.0 ACUTE MYOCARDIAL INFARCTION 2.0-3.0 VALVULAR HEART DISEASE 2.0-3.0 ATRIAL FIBRILLATION 2.0-3.0 MECHANICAL VALVES(HIGH RISK) 2.5-3.5 RECURRENT MYOCARDIAL INFARCTION 2.5-3.5 Prothrombin Time 13.9 s 12.7-14.5 [facility] ([facility]) Partial Thromboplastin Time 30.2 s 25.9-37.0 [place] [facility] ([facility]) ID Date Data Source [id number] 01/15/2021 12:28:00 AM EDT [facility] ([facility]) Name Value Range Interpretation Code Description Data Cathy rce(s) Supporting Document(s) White Blood Count 8.3 10 4.0-10.0 [facility] ([facility]) Red Blood Count 4.01 10 4.00-5.40 [facility] ([facility]) Hemoglobin 10.9 g/dL 12.0-15.5 [facility]) Hematocrit 34.0 % 36.0-47.0 [facility]) Mean Corpuscular Hemoglobin 27.2 pg 27.0-33.0 [facility] ([facility]) Mean Corpuscular Volume 84.8 fl 80.0-96.0 [facility] ([facility]) Red Cell Distribution Width 15.2 % 11.5-14.5 [facility] ([facility]) Mean Corpuscular HGB Conc 32.1 g/dL 32.0-36.5 [facility] ([facility]) Neutrophils % 60.8 % 36.0-66.0 [facility] ([facility]) Platelet Count, Automated 331 10 150-450 [facility] ([facility]) Lymph % 27.5 % 24.0-44.0 [facility]) Eos % 2.2 % 0.0-3.0 [facility]) Kleberg % 8.6 % 2.0-8.0 [facility]) Baso % 0.7 % 0.0-1.0 [facility]) Nucleated Red Blood Cell % 0.0 % 0-0 [facility] ([facility]) Neutrophils # 5.1 10 1.5-8.5 [facility] ([facility]) Immature Granulocyte % 0.2 % 0-3.0 [facility] ([facility]) Kleberg # 0.7 10 0.0-0.8 [facility]) Lymph # 2.3 10 1.5-5.0 [facility]) Eos # 0.2 10 0.0-0.5 [facility]) Baso # 0.1 10 0.0-0.2 [facility] ID Date Data Source [id number] 01/15/2021 12:27:00 AM EDT [facility] Name Value Range Interpretation Code Description Data Cathy rce(s) Supporting Document(s) Color, Urine RFX Laboratory test result [facility] Appearance, Urine RFX Laboratory test result [facility] Specific [place] Ur Auto RFX 1.023 1.002-1.035 [facility] PH,Urine RFX 5.0 units 5.0-9.0 [facility] Protein, Urine Auto RFX Laboratory test result [facility] Ketone, Urine Auto RFX Laboratory test result [facility] Urobilinogen, Urine Auto RFX 0.2 mg/dL 0.0-2.0 [facility] Glucose, Urine (Ua) Auto RFX Laboratory test result [facility] Leukocyte Esterase Ur Auto RFX Laboratory test result [facility] Bilirubin, Urine Auto RFX Laboratory test result [facility] Nitrite, Urine Auto RFX Laboratory test result [facility] WBC, Urine Auto RFX 5 /HPF 0-3 [facility] ([facility]) RBC, Urine Auto RFX 5 /HPF 0-3 [facility] Blood, Urine Blood RFX Laboratory test result [facility] Squam Epithelial Cell Ur Aurfx 7 /HPF 0-6 [facility] ([facility]) Mucus, Urine RFX Laboratory test result [facility] ([facility]) Bacteria, Urine Auto RFX Laboratory test result [facility] Hyaline Cast, Urine Auto RFX 4 /LPF 0-1 M [facility]ENT ([facility]) ID Date Data Source [id number] 10/11/2020 08:09:48 AM EDT [place] [facility] - [facility] MARCIAL CORNEJO IDENTIFICATION:[facility] Name: David CORNEJO Record Number: [id number] Of : 1945CHIEF COMPLAINT:patient here with sores on b/l feet, per patients dtr. Shraddha patient is apicker, dtr concerned shemay have infection. Patient not sure of all her medications she is takingHISTORY OF PRESENT ILLNESS:Patient is a 75-year-old female presents walk-in clinic today with daughterwith sores of feetand legs. Patient is staying with her daughter over the next several weeks,visiting from [facility]. Daughter reports she is a "leaf size [...] several weeks. Call results todiana Henderson at [phone]. Ordered:mupirocin topical, 1 savanah, Topical, tid, # 30 g, Maintenance, Pharmacy:[facility] #[id number], 1 appTopical tidsulfamethoxazole-trimethoprim, 1 tab(s), PO (oral), bid, # 14 tab(s),Maintenance, Pharmacy: [facility] #[id number], 1 tab(s) PO (oral) bid,x7 day(s)Culture [...] fevers develop or redstreaking up the leg, [facility].Follow-Up Appointments With: Follow up with primary care providerAddress: , , ,When: 5 to 7 days, only if needed This document was authenticated by Lisette Gilliland PA PA on 108:09 AM Name Value Range Interpretation Code Description Data Cathy rce(s) Supporting Document(s) ID Date Data Source [id number] 10/13/2020 09:26:06 AM EDT [place] [facility] - [facility] Name PATRICIA CORNEJO hdate 1945Sex FEMALE Age 75 yearsPatient Acct. No. [id number] [facility] Phys[facility] Lisette Gilliland PAPrimary Care [...] Locationsf1: This test was performed at:[facility], [address] [place] [address], [address] [place] [address] Name Value Range Interpretation Code Description Data Cathy rce(s) Supporting Document(s) ID Date Data Source [id number] 09/10/2020 12:40:00 PM EDT [facility] ([facility]) Name Value Range Interpretation Code Description Data Cathy rce(s) Supporting Document(s) Glucose [Mass/volume] in Serum or Plasma 97 mg/dL 74-99 [facility] ([facility]) 100-125 mg/dL PRE-DIABETES/FASTING >126 mg/dL DIABETES/FASTING Sodium [Moles/volume] in Serum or Plasma 138 meq/L 136-145 [facility] ([facility]) Urea nitrogen [Mass/volume] in Serum or Plasma 20 mg/dL 7-18 [facility] ([facility]) Creatinine 1.0 mg/dL 0.6-1.3 [facility] ([facility]) Carbon dioxide, total [Moles/volume] in Serum or Plasma 25 meq/L 21 -32 [facility] ([facility]) Chloride [Moles/volume] in Serum or Plasma 102 meq/L 98-107 [facility] ([facility]) Potassium [Moles/volume] in Serum or Plasma 4.4 meq/L 3.5-5.1 [facility] ([facility]) Alkaline phosphatase isoenzyme [Units/volume] in Serum or Pl asma 94 mg/dL 46-116 [facility] ([facility]) Total Bilirubin 0.3 mg/dL 0.2-1.0 [facility] ([facility]) Calcium [Mass/volume] in Serum or Plasma 9.6 mg/dL 8.5-10.1 [facility] ([facility]) Aspartate aminotransferase [Enzymatic activity/volume] in Serum or Plasma 16 U/L 15-37 [facility] ([facility] ) Albumin [Mass/volume] in Serum or Plasma 3.4 g/dL 3.4-5.0 [facility] ([facility]) Alanine aminotransferase [Enzymatic activity/volume] in Seru m or Plasma 17 U/L 12-78 [facility] ([facility]) Proteinase 3 Ab [Units/volume] in Serum 7.2 g/dL 6.4-8.2 [facility] ([facility]) A/G Ratio 0.89 CALC 1.00-1.90 [facility] ([facility]) Glomerular filtration rate/1.73 sq M pre dicted among non-blacks [Volume Rate/Area] in Serum or Plasma by Creatinine-based formula (MDRD) 54 mL/min [facility] Glomerular filtration rate/1.73 sq M pre dicted among blacks [Volume Rate/Area] in Serum or Plasma by Creatinine-based formula (MDRD) Laboratory test result [facility] ([facility]) <content>CHRONIC KIDNEY DISEASE STAGING PER NKF</content>
<content></content>
<content>STAGE I & II GFR >= 60 NORMAL TO MILDLY DECREASED</content>
<content>STAGE III GFR 30-59 MODERATELY DECREASED</content>
<content>STAGE IV GFR 15-29 SEVERELY DECREASED</content>
<content>STAGE V GFR <15 VERY LITTLE GFR LEFT</content>
<content>ESRD GFR <15 ON LEARNING OFFICER</content>
<content></content> ID Date Data Source [id number] 09/10/2020 12:40:00 PM EDT [facility] ([facility]) Name Value Range Interpretation Code Description Data Cathy rce(s) Supporting Document(s) Erythrocytes [#/volume] in Blood by Automated count 4.22 x10*6/UL 4.2 0-6.30 [facility] Hemoglobin [Mass/volume] in Blood 12.0 g/dL 12.0-18.0 [facility] Leukocytes [#/volume] in Blood by Automated count 6.9 x10*3/UL 4.1-10 .9 [facility] MCV 85.9 fL 80.0-97.0 [facility] ([facility]) Hematocrit [Volume Fraction] of Blood by Automated count 36.2 % 3 7.0-51.0 [facility] MCH 28.4 pg 26.0-32.0 [facility] ([facility]) MCHC 33.1 g/dL 31.0-38.0 [facility] Erythrocyte distribution width [Ratio] by Automated count 13.9 % 11.6-13.7 [facility] ([facility]) Platelets [#/volume] in Blood by Automated count 272 x10*3/UL 140-440 [facility] ([facility]) Mid % 6.0 % 1.7-9.3 [facility]) MPV 7.5 FL 7.8-11.0 [facility]) Lymph % 18.8 % 10.0-58.5 [facility] Neut % 75.2 % 37.0-92.0 [facility]) Mid # 0.4 x10*3/UL 0.1-0.6 [facility] ([facility]) Lymph # 1.3 x10*3/UL 0.6-4.1 [facility] ([facility]) Neut # 5.2 x10*3/UL 2.0-7.8 [facility] ([facility]) ID Date Data Source [id number] 05/21/2020 08:20:00 AM EST [facility] ([facility]) Name Value Range Interpretation Code Description Data Cathy rce(s) Supporting Document(s) Thyrotropin [Units/volume] in Serum or Plasma by Detec tion limit <= 0.05 mIU/L 0.53 uIU/mL 0.36-3.74 [facility] ID Date Data Source [id number] 05/21/2020 08:20:00 AM EST [facility] Name Value Range Interpretation Code Description Data Cathy rce(s) Supporting Document(s) Cholesterol [Mass/volume] in Serum or Plasma 197 mg/dL 131-200 [facility] ([facility]) Triglyceride [Mass/volume] in Serum or Plasma 189 mg/dL 30-150 [facility] ([facility]) Cholesterol in HDL [Mass/volume] in Serum or Plasma 54 mg/dL 35-60 [facility] ([facility]) Cholesterol in LDL [Mass/volume] in Serum or Plasma by calcu lation 105 CALC 50-159 [facility] ([facility]) ID Date Data Source [id number] 05/21/2020 08:20:00 AM EST [facility] ([facility]) Name Value Range Interpretation Code Description Data Cathy rce(s) Supporting Document(s) Glucose [Mass/volume] in Serum or Plasma 157 mg/dL 74-99 [facility] ([facility]) 100-125 mg/dL PRE-DIABETES/FASTING >126 mg/dL DIABETES/FASTING Urea nitrogen [Mass/volume] in Serum or Plasma 32 mg/dL 7-18 [facility] ([facility]) NOTE: bun,alk phos,albumin,magnesium verified Creatinine 1.3 mg/dL 0.6-1.3 [facility] ([facility]) Sodium [Moles/volume] in Serum or Plasma 138 meq/L 136-145 [facility] ([facility]) Potassium [Moles/volume] in Serum or Plasma 4.3 meq/L 3.5-5.1 [facility] ([facility]) Chloride [Moles/volume] in Serum or Plasma 102 meq/L 98-107 [facility] ([facility]) Carbon dioxide, total [Moles/volume] in Serum or Plasma 26 meq/L 21 -32 [facility] ([facility]) Alkaline phosphatase isoenzyme [Units/volume] in Serum or Pl asma 119 mg/dL 46-116 [facility] ([facility]) Calcium [Mass/volume] in Serum or Plasma 8.9 mg/dL 8.5-10.1 [facility] ([facility]) Aspartate aminotransferase [Enzymatic activity/volume] in Serum or Plasma 17 U/L 15-37 [facility] ([facility] ) Total Bilirubin 0.2 mg/dL 0.2-1.0 [facility] ([facility]) Alanine aminotransferase [Enzymatic activity/volume] in Seru m or Plasma 12 U/L 12-78 [facility] ([facility]) Albumin [Mass/volume] in Serum or Plasma 3.3 g/dL 3.4-5.0 [facility] ([facility]) Proteinase 3 Ab [Units/volume] in Serum 6.9 g/dL 6.4-8.2 [facility] A/G Ratio 0.92 CALC 1.00-1.90 [facility] ([facility]) Glomerular filtration rate/1.73 sq M pre dicted among blacks [Volume Rate/Area] in Serum or Plasma by Creatinine-based formula (MDRD) 49 mL/min [facility] <content>CHRONIC KIDNEY DISEASE STAGING PER NKF</content>
<content></content>
<content>STAGE I & II GFR >= 60 NORMAL TO MILDLY DECREASED</content>
<content>STAGE III GFR 30-59 MODERATELY DECREASED</content>
<content>STAGE IV GFR 15-29 SEVERELY DECREASED</content>
<content>STAGE V GFR <15 VERY LITTLE GFR LEFT</content>
<content>ESRD GFR <15 ON LEARNING OFFICER</content>
<content></content> Glomerular filtration rate/1.73 sq M pre dicted among non-blacks [Volume Rate/Area] in Serum or Plasma by Creatinine-based formula (MDRD) 40 mL/min [facility] ID Date Data Source [id number] 05/21/2020 08:20:00 AM EST [facility] ([facility]) Name Value Range Interpretation Code Description Data Cathy rce(s) Supporting Document(s) Magnesium 1.3 mg/dL 1.8-2.4 [facility] ([facility]) ID Date Data Source [id number] 05/21/2020 08:20:00 AM EST [facility] ([facility]) Name Value Range Interpretation Code Description Data Cathy rce(s) Supporting Document(s) Hemoglobin A1c/Hemoglobin.total in Blood 6.0 % [facility] Lab Result Notes: Pre-Diabetes 5.7 - 6.4 % Diabetes = or > 6.5% Glucose mean value [Mass/volume] in Blood Estimated fr om glycated hemoglobin 125 mg/dL 60-110 [facility] ID Date Data Source [id number] 05/21/2020 08:20:00 AM EST [facility] ([facility]) Name Value Range Interpretation Code Description Data Cathy rce(s) Supporting Document(s) Magnesium, Serum Laboratory test result [facility] ([facility]) Hemoglobin A1c/Hemoglobin.total in Blood Laboratory test result [facility] ([facility]) ID Date Data Source [id number] 05/21/2020 08:19:00 AM EST [facility] ([facility]) Name Value Range Interpretation Code Description Data Cathy rce(s) Supporting Document(s) Leukocytes [#/volume] in Blood by Automated count 6.8 x10*3/UL 4.1-10 .9 [facility] ([facility]) NOTE: CBC VERIFIED Erythrocytes [#/volume] in Blood by Automated count 3.99 x10*6/UL 4.2 0-6.30 [facility] ([facility]) MCV 85.4 fL 80.0-97.0 [facility]) Hemoglobin [Mass/volume] in Blood 11.6 g/dL 12.0-18.0 [facility] ([facility]) Hematocrit [Volume Fraction] of Blood by Automated count 34.1 % 3 7.0-51.0 [facility] ([facility]) MCHC 34.1 g/dL 31.0-38.0 [facility]) MCH 29.1 pg 26.0-32.0 [facility]) Erythrocyte distribution width [Ratio] by Automated count 13.8 % 11.6-13.7 [facility] Platelets [#/volume] in Blood by Automated count 277 x10*3/UL 140-440 [facility] ([facility]) MPV 7.9 FL 7.8-11.0 [facility] Lymph % 24.8 % 10.0-58.5 [facility] Mid % 6.4 % 1.7-9.3 [facility] Neut % 68.8 % 37.0-92.0 [facility] Lymph # 1.6 x10*3/UL 0.6-4.1 [facility] ([facility]) Mid # 0.6 x10*3/UL 0.1-0.6 [facility] ([facility]) Neut # 4.6 x10*3/UL 2.0-7.8 [facility] ([facility]) ID Date Data Source [id number] 02/11/2020 01:54:00 AM EST [facility] ([facility]) Name Value Range Interpretation Code Description Data Cathy rce(s) Supporting Document(s) Erythrocyte sedimentation rate by Westergren method 62 mm/hr 0-30 [facility] ([facility]) Urate [Mass/volume] in Serum or Plasma 7.7 mg/dL 2.6-6.0 [facility] ([facility]) ID Date Data Source [id number] 02/11/2020 01:54:00 AM EST [facility] ([facility]) Name Value Range Interpretation Code Description Data Cathy rce(s) Supporting Document(s) White Blood Count 14.6 10 4.0-10.0 [facility] ([facility]) Red Blood Count 4.09 10 4.00-5.40 [facility] ([facility]) Hemoglobin 11.7 g/dL 12.0-15.5 [facility] ([facility]) Hematocrit 36.4 % 36.0-47.0 [facility]) Mean Corpuscular Volume 89.0 fl 80.0-96.0 [facility] ([facility]) Mean Corpuscular HGB Conc 32.1 g/dL 32.0-36.5 [facility] ([facility]) Mean Corpuscular Hemoglobin 28.6 pg 27.0-33.0 [place] [facility] ([facility]) Platelet Count, Automated 243 10 150-450 [facility] ([facility]) Neutrophils % 79.9 % 36.0-66.0 [facility] ([facility]) Red Cell Distribution Width 14.3 % 11.5-14.5 [place] [facility] ([facility]) Kleberg % 10.4 % 0.0-5.0 [facility] Eos % 0.2 % 0.0-3.0 [facility] Lymph % 8.9 % 24.0-44.0 [facility]) Immature Granulocyte % 0.3 % 0-3.0 [facility] ([facility]) Baso % 0.3 % 0.0-1.0 [facility]) Nucleated Red Blood Cell % 0.0 % 0-0 [facility] ([facility]) Lymph # 1.3 10 1.5-5.0 [facility]) Neutrophils # 11.6 10 1.5-8.5 [facility] Baso # 0.0 10 0.0-0.2 [facility] Eos # 0.0 10 0.0-0.5 [facility]) Kleberg # 1.5 10 0.0-0.8 [facility]) Procedure Social History No Information Vital Signs ID Date Data Source [id number] Name Value Range Interpretation Code Description Data Source(s) Body height 59.8 [in_i] 59.8 [in_i] [place] [facility] [place] [facility] Result Comment: Result placed secondary from cm, converted to Inches Body weight Measured 194 lb 0 oz 194 lb 0 oz As [facility] - [facility] Result Comment: Result placed secondary from kg, converted to lbs Systolic blood pressure 150 mm[Hg] Above high normal 150 m m[Hg] [place] [facility] Diastolic blood pressure 92 mm[Hg] Above high normal 92 m m[Hg] [place] [facility] Heart rate 88 /min Normal (applies to non-numeric resul ts) 88 /min [place] [facility] Respiratory rate 16 /min Normal (applies to non-numeric results) 16 /min [place] [facility] Body mass index (BMI) [Ratio] 37.1 kg/m2 37.1 k g/m2 [facility] ([facility]) Body height 60 [in_i] 60 [in_i] [facility]) 5'0" Heart rate 72 /min 72 /min [facility] ([facility]) Diastolic blood pressure 80 mm[Hg] 80 mm[Hg] [facility] ([facility]) Systolic blood pressure 134 mm[Hg] 134 mm[Hg] [facility] Body weight 190.00 [lb_av] 190.00 [lb_av] [facility] ([facility]) Diastolic blood pressure 78 mm[Hg] 78 mm[Hg] [facility] ([facility]) Body height 60 [in_i] 60 [in_i] [facility]) 5'0" Body weight 191.00 [lb_av] 191.00 [lb_av] [facility] ([facility]) Body mass index (BMI) [Ratio] 37.3 kg/m2 37.3 k g/m2 [facility] ([facility]) Systolic blood pressure 130 mm[Hg] 130 mm[Hg] [facility] Heart rate 80 /min 80 /min [facility]) Systolic blood pressure 134 mm[Hg] 134 mm[Hg] M [facility] Diastolic blood pressure 80 mm[Hg] 80 mm[Hg] [facility] Heart rate 86 /min 86 /min [facility] ([facility]) Respiratory rate 16 /min 16 /min [facility] ( [facility] Body height 60 [in_i] 60 [in_i] [facility] 5'0" Body weight 175.00 [lb_av] 175.00 [lb_av] [facility] ([facility]) Body mass index (BMI) [Ratio] 34.2 kg/m2 34.2 k g/m2 [facility] ([facility]) Oxygen saturation in Arterial blood by Pulse oximetry 97 % 97 % [facility] ([facility] Body temperature 98.4 [degF] 98.4 [degF] [facility] Heart rate 108 /min 108 /min [facility] ([facility]) Heart rate 100 /min 100 /min [facility] Respiratory rate 20 /min 20 /min [facility] ( [facility]) Oxygen saturation in Arterial blood by Pulse oximetry 99 % 99 % [facility] ([facility] Body temperature 98.5 [degF] 98.5 [degF] [facility] ([facility]) Body weight 194.00 [lb_av] 194.00 [lb_av] [facility] ([facility]) Systolic blood pressure 136 mm[Hg] 136 mm[Hg] [facility] ([facility]) Diastolic blood pressure 82 mm[Hg] 82 mm[Hg] [facility] Body height 60 [in_i] 60 [in_i] [facility] 5'0" Body mass index (BMI) [Ratio] 37.9 kg/m2 37.9 k g/m2 [facility] ([facility] Patient Treatment Plan of Care Planned Activity Planned Date Details Description Data Source (s) Bactroban 2% topical ointment 10/10/2020 08:09:00 PM EDT [facility] [facility] Bactrim DS 800 mg-160 mg oral tablet 10/10/2020 08:09:00 PM EDT [place] [facility] Meclizine Hydrochloride 25 MG Oral Tablet 10/10/2020 07:53:00 PM ED T [place] [facility]
[2021-01-20] MEDS ORDERED: ACETAMINOPHEN 500 MG TAB PO ONE (13:05)
--- NOTE | 2021-01-20 13:08 | REP ---
INDICATION: Altered Mental Status. COMPARISON: CT head without contrast, 10/10/2013 and 01/15/2021. TECHNIQUE: Contiguous 5 mm thick axial projection images were obtained through the head. 2D coronal reconstructions were performed. FINDINGS: There is mild diffuse cerebral atrophy with concomitant ventriculomegaly. There is a chronic lacunar infarction in the left basal ganglia. There is no evidence of acute intracranial hemorrhage or infarction. There are no abnormal intracranial masses or mass effects. 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 The skull base and calvarium are normal. There is a right scleral calcifications. IMPRESSION: 1. Cerebral atrophy. 2. Chronic lacunar infarction in the left basal ganglia. 3. No evidence of acute intracranial pathology. 4. Other findings as noted. <Electronically signed by Kelvin Cuello > 01/20/21 [id number]
--- OUTSIDE RECORDS SUMMARY | 2021-01-20 13:09 | CCD ---
Author Author [facility] Organization [facility] Address Unknown Phone Unavailable Care Team Providers Care Underwater Trapper Name Role Phone Restrepo, Marilou TESTER ROCKET ENGINE Unavailable Unavailable Restrepo, Marilou TESTER ROCKET ENGINE Unavailable Unavailable Restrepo, Marilou TESTER ROCKET ENGINE Unavailable Unavailable Restrepo, Marilou TESTER ROCKET ENGINE Unavailable Unavailable Restrepo, Marilou TESTER ROCKET ENGINE Unavailable Unavailable Restrepo, Marilou TESTER ROCKET ENGINE Unavailable Unavailable Restrepo, Marilou TESTER ROCKET ENGINE Unavailable Unavailable Restrepo, Marilou TESTER ROCKET ENGINE Unavailable Unavailable Restrepo, Marilou TESTER ROCKET ENGINE Unavailable Unavailable Restrepo, Marilou TESTER ROCKET ENGINE Unavailable Unavailable Restrepo, Marilou TESTER ROCKET ENGINE Unavailable Unavailable Restrepo, Marilou TESTER ROCKET ENGINE Unavailable Unavailable Restrepo, Marilou TESTER ROCKET ENGINE Unavailable Unavailable Ariela Ramos MD Unavailable Unavailable [...] GILLILAND M LISETTE Unavailable Unavailable GRICELDA GILLILAND Unavailable Unavailable Re-disclosure [...] is protected by Article 27-F of the [facility] Public Health law. If you continue you may have access to information: Regarding HIV / AIDS; Provided by facilities licensed or operated by the [facility] Office of Mental Health; or Provided by the [facility] Office for People With Developmental Disabilities. If such information is present, then the following [facility] mandated warning applies: This information has been [...] law may result in a fine or retirement sentence or both. A general authorization for [...] TEST P EW-PEW 10/10/2020 07:46:00 PM EDT [facility] Outpatient Attender: LISETTE GILLILANDAdmitter: LISETTE HO W-PE 10/10/2020 05:00:00 AM EDT - 10/10/2020 05:00:00 AM EDT [facility] Patient discharged. <content styleCode="Bold">OLL MS4 FIN 20 [id number] Date(s): 10/10/20 - 10/11/20</content>
[address]
<content styleCode="Bold Underline">Encounter Diagnosis</content>
<content ID="[id number]">Unspecified open wound, left foot, initial encounter</content> (Discharge Diagnosis) -
<content ID="[id number]">Discharge Disposition: DSC to Home</content>
Attending Physician: Lisette Gilliland PA
Admitting Physician: Lisette Gilliland PA
Outpatient Ancillary Attender: GRICELDA GILLILANDAttender: Lisette GillilandAdmitter: Lisette Gilliland [facility] 10/10/2020 05:00:00 AM EDT - 10/11/2020 11:59:59 PM EDT [facility] Outpatient Attender: Ed Otero 09/10 01:00:00 PM EDT [facility] ([facility] ) Outpatient Attender: Ed Otero 05/21 07:30:00 AM EST [facility] ([facility] ) Outpatient Attender: Marilou garza 05/07/2020 10:30:00 AM EST [facility] ([facility]) Outpatient Attender: PAT Otero 1 05/21/2019 02:20:00 PM EST [facility] ([facility] ) Outpatient Attender: Gwendolyn Ewingsumeet Figueroa Carol kay 01/24/2020 01:00:00 PM EDT [facility] ([facility] Medications Medication Brand Name Start Date Product Form Dose Route Admi nistrative Instructions Pharmacy Instructions Status Indications Reaction Description Data Source(s) 100 mg 01/05/2021 12:00:00 AM EDT tablet extended release 24 hr 30 TAKE ONE TABLET BY MOUTH EVERY DAY TAKE ONE TABLET BY MOUTH EVERY DAY SOLD: 01/07/2021 [facility] Meclizine Hydrochloride 25 MG Oral Tablet MECLIZINE HCL 10/25/2020 12:00:00 AM EDT tablet 60 TAKE ONE TABLET BY MOUTH TWI CE A DAY FOR DIZZINESS TAKE ONE TABLET BY MOUTH TWICE A DAY FOR DIZZINESS SOLD: 12/10/2020 [facility] Meclizine Hydrochloride 25 MG Oral Tablet MECLIZINE HCL 10/25/2020 12:00:00 AM EDT tablet 60 TAKE ONE TABLET BY MOUTH TWI CE A DAY FOR DIZZINESS TAKE ONE TABLET BY MOUTH TWICE A DAY FOR DIZZINESS SOLD: 01/07/2021 [facility] Meclizine Hydrochloride 25 MG Oral Tablet MECLIZINE HCL 10/25/2020 12:00:00 AM EDT tablet 60 TAKE ONE TABLET BY MOUTH TWI CE A DAY FOR DIZZINESS TAKE ONE TABLET BY MOUTH TWICE A DAY FOR DIZZINESS SOLD: 10/29/2020 [facility] Bactrim DS 800 mg-160 mg oral tablet [id number] 10/10/2020 08:09:00 P M EDT 1.0 By Mouth active 1 tab(s), PO (oral), bid, # 14 tab(s), M aintenance, Pharmacy: [facility]/pharmacy #[id number], 1 tab(s) PO (oral) bid,x7 day(s) [facility] Bactroban 2% topical ointment [id number] 10/10/2020 08:09:00 PM EDT 1.0 On Skin active 1 savanah, Topical, tid, # 30 g, Maintenance , Pharmacy: [facility]/pharmacy #[id number], 1 savanah Topical tid [facility] Meclizine Hydrochloride 25 MG Oral Tablet meclizine 25 mg oral tablet meclizine 25 mg oral tablet 10/10/2020 07:53:00 PM EDT 25.0 mg By Mouth active 25 mg = 1 tab(s), PO (oral), tid, PRN Dizziness, 0 Ref ill(s), Maintenance [facility] 100 mg 09/19/2020 12:00:00 AM EDT tablet [...] EST active [facility] ([facility]) Triamcinolone Acetonide 0.005 MG/MG Topical Ointment Triamci nolone Acetonide 05/07/2020 12:00:00 AM EST active [facility] ([facility] 25 mg 05/07/2020 12:00:00 AM EST [...] 03/20/2020 12:00:00 AM EST ORAL active [facility] ([facility]) Furosemide 20 MG Oral Tablet Furosemide 03/20/2020 12:00:00 AM EST ORAL active [facility] ([facility]) 20 mg 03/20/2020 12:00:00 [...] 01/24/2020 12:00:00 AM EDT ORAL completed [facility] ([facility]) Petrolatum 0.41 MG/MG Topical Ointment [Aquaphor] Aquaphor 01/24/2020 12:00:00 AM EDT completed [facility] ([facility]) Meclizine Hydrochloride 25 MG Oral Tablet MECLIZINE [...] CAPSULE BY MOUTH EVERY DAY SOLD: 04/23/2020 [facility] Esomeprazole 40 MG Delayed Release Oral Capsule ESOMEPRAZOLE MAGNESIUM 11/26/2019 12:00:00 AM EDT capsule,delayed release(DR/EC) 30 TAKE ONE CAPSULE BY MOUTH EVERY DAY TAKE ONE CAPSULE BY MOUTH EVERY DAY SOLD: 01/24/2020 [facility] Esomeprazole 40 MG Delayed Release Oral Capsule ESOMEPRAZOLE MAGNESIUM 11/26/2019 12:00:00 AM EDT capsule,delayed release(DR/EC) 30 TAKE ONE CAPSULE BY MOUTH EVERY DAY TAKE ONE CAPSULE BY MOUTH EVERY DAY SOLD: 02/22/2020 [facility] Esomeprazole 40 MG Delayed Release Oral Capsule ESOMEPRAZOLE MAGNESIUM 11/26/2019 12:00:00 AM EDT capsule,delayed release(DR/EC) 30 TAKE ONE CAPSULE BY MOUTH EVERY DAY TAKE ONE CAPSULE BY MOUTH EVERY DAY SOLD: 11/28/2019 [facility] 40 mg 11/26/2019 12:00:00 AM EDT capsule,delayed release (DR/EC) 30 TAKE ONE CAPSULE BY MOUTH EVERY DAY TAKE ONE CAPSULE BY MOUTH EVERY DAY SOLD: 03/26/2020 [facility] Esomeprazole 40 MG Delayed Release Oral [...] Information Medicare Natl Govt Servic Medicare Primary [id number] Self [id number] MEDICARE [id number] Nicole [id number] A Medicare Natl Govt Servic Medicare Primary [id number] Self [id number] Medicare Natl Govt Servic Medicare Primary [id number] Self [id number] Medicare Natl Govt Servic Medicare Primary [id number] Self Medicare Natl Govt Servic Medicare Primary [id number] Self [id number] Medicare C [id number] SELF [id number] A Medicare Natl Govt Servic Medicare Primary [id number] Self [id number] MEDICAID [id number] Nicole [id number] [facility] Jurisdiction A [facility] [id number] SELF [id number] AARP [facility] Supplemental F [id number] SELF [id number] [facility] AARP Supplemental F [id number] SELF [id number] [facility] Opt Medigap Part B [id number] 11 [id number] Self [id number] 11 [facility] Opt Medigap Part B Plan F [id number] Self Plan F Todays Option Medicare Commercial [id number] Self [id number] [employer]/Todays Optmcr Commercial [id number] Self [id number] [facility] Opt Medigap Part B [id number] Self [id number] 11 [facility] Opt Medigap Part B [id number] 11 [id number] Self [id number] 11 [facility] Opt Medigap Part B [id number] 11 [id number] Self [id number] 11 [facility] Opt Medigap Part B [id number] 11 [id number] Self [id number] 11 MEDICAID [facility] COMPUTER S [facility] [id number] A [id number] [facility] [facility] OPTIONS [id number] SP [id number] TODAYS OPTIONS [id number] SP [id number] Todays Option Medicare Commercial Premier 100 PFFS [id number] Self Premier 100 PFFS Medicaid Medigap Part B [id number] Self 1 1 Today's Option Medicare Commercial [id number] Self Medicaid [place] Medigap Part B [id number] Self Medicare [facility] Medicare Primary [id number] Self Medicaid Medicaid [id number] Self Medicare Medicare Primary [id number] [place] 3 [id number] U SELF PAY 2 UNAVAILABLE 1 UNAVAILA BLE [facility] MEDICARE SOLUTIO 11 [id number] 1 [id number] MEDICARE [id number] SP [id number] MEDICARE COMPLETE [id number] SP [id number] HUMANA MEDICARE MCR [id number] A [id number] AARP O [id number] S [id number] MEDICARE C [id number] S [id number] A MEDICAID M [id number] S [id number] AARP HE[employer] CARE OPTIONS [id number] SP [id number] EMEDNY [id number] SP [id number] MEDICARE [id number] SP [id number] A Medicaid Medigap Part B [id number] Self [id number] MEDICAID [id number] SP [id number] Medicaid Medigap Part B [id number] Self [id number] [place] Medigap Part B [id number] Self [id number] [facility] Options Medigap Part B [id number] Self [id number] Medicare Natl Gov't Servi Medicare Primary [id number] Self [id number] MEDICARE [id number] SP [id number] A Todays Option Medicare Commercial [id number] Self [id number] Medicaid Medigap Part B [id number] Self [id number] Todays Option Medicare Commercial [id number] Self [id number] Medicaid Medigap Part B [id number] Self [id number] Medicaid Medigap Part B [id number] Self [id number] Todays Option Medicare Commercial [id number] Self [id number] Problems, Conditions, and Diagnoses Code Display Name Description Problem Type Effective Dates Data Source(s) poss infection sores on foot poss infection sores on f oot Diagnosis 10/10/2020 05:00:00 AM EDT [facility] [id number] Unspecified open wound, left foot, initi al encounter Unspecified open wound, left foot, initial encounter Diagnosis 10/10/2020 05:00:00 AM E DT [facility] [place] [facility] Surgeries/Procedures Procedure Description Date Indications Data Source(s) OFFICE OUTPATIENT VISIT 25 MINUTES 09/10/2020 12:00:00 AM EDT [facility] ([facility]) OFFICE OUTPATIENT VISIT 25 MINUTES 05/21/2020 12:00:00 AM EST [facility] ([facility]) OFFICE OUTPATIENT VISIT 15 MINUTES 03/20/2020 12:00:00 AM EST [facility] ([facility]) Results ID Date Data Source [id number] 01/15/2021 12:28:00 AM EDT [facility] Name Value Range Interpretation Code Description Data Cathy rce(s) Supporting Document(s) SARS-CoV-2 (COVID 19) NEGATIVE - SARS-CoV-2 (COVID19) [facility] This lab was ordered by [facility] a nd reported by [facility]. ID Date Data Source [id number] 01/15/2021 12:28:00 AM [facility]T [facility] Name Value Range Interpretation Code Description Data Cathy rce(s) Supporting Document(s) Barbiturates Urine Laboratory test result [facility] ([facility]) Amphetamines Level Urine Laboratory test result [facility] ([facility]) Benzodiazepines Urine Laboratory test result [facility] ([facility]) Cannabinoids Urine Laboratory test result [facility] ([facility]) Methadone Urine Laboratory test result [facility] ([facility]) Cocaine Metabolite Urine Laboratory test result [facility] ([facility]) Opiates Urine Laboratory test result [facility] ([facility]) Phencyclidine Urine [facility] ALL PRESUMPTIVE POSITIVE FINDINGS AR E [...] CALL THE LAB. ID Date Data Source [id number] 01/15/2021 12:28:00 AM EDT [facility] Name Value Range Interpretation Code Description Data Cathy rce(s) Supporting Document(s) ABG Partial Pressure Co2 29.9 mmHg 35.0-45.0 [facility] ([facility]) ABG pH (Arterial) 7.358 units 7.350-7.450 [facility] ( [facility]) ABG Hco3 16.4 meq/L 22.0-26.0 [facility]) ABG Partial Pressure O2 92.2 mmHg 75.0-100.0 [facility] ([facility]) ABG Total Co2 17.4 meq/L 23.0-31.0 [facility] ([facility]) ABG Standard Hco3 18.1 meq/L 22.0-26.0 [facility] ([facility]) ABG Base Excess -7.9 [facility] ([facility]) ABG O2 Saturation 96.5 % 95.0-99.0 [facility] ([facility]) ID Date Data Source [id number] 01/15/2021 12:28:00 AM EDT [facility] Name Value Range Interpretation Code Description Data Cathy rce(s) Supporting Document(s) Respiratory Panel Laboratory test result [facility] This respiratory PCR panel detects Influ [...] - SARS-CoV-2 (COVID19) ID Date Data Source [id number] 01/15/2021 12:28:00 AM EDT [facility] Name Value Range Interpretation Code Description Data Cathy rce(s) Supporting Document(s) Osmolality of Serum or Plasma 299 MOSM/KG 280-301 [facility] ([facility]) Ethanol [Mass/volume] in Serum or Plasma Laboratory test result 0.000 -0.010 [facility] Salicylates [Mass/volume] in Serum or Plasma 15.6 mg/dL 5.0-30.0 [facility] Acetaminophen [Mass/volume] in Serum or Plasma 5.3 UG/ML 10.0-30.0 [facility] ([facility]) Thyrotropin [Units/volume] in Serum or Plasma by Detec tion limit <= 0.05 mIU/L 0.432 uIU/ML 0.358-3.740 [facility] ID Date Data Source [id number] 01/15/2021 12:28:00 AM EDT [facility] ([facility]) Name Value Range Interpretation Code Description Data Cathy rce(s) Supporting Document(s) Glucose, Fasting 96 mg/dL 70-100 [facility] ([facility]) Creatinine For GFR 1.73 mg/dL 0.55-1.30 [facility] ([facility]) Glomerular Filtration Rate 30.7 [facility] ([facility]) <content>Units are mL/min/1.73 m2</content>
<content></content>
<content>Chronic Kidney Disease Staging per NKF:</content>
<content></content>
<content>Stage I & II GFR >=60 Normal to Mildly Decreased</content>
<content>Stage III GFR 30- 59 Moderately Decreased</content>
<content>Stage IV GFR 15-29 Severely Decreased</content>
<content>Stage V GFR <15 Very Little GFR Left</content>
<content>ESRD GFR <15 on HOSPICE PHYSICIAN</content>
<content></content> Blood Urea Nitrogen 37 mg/dL 7-18 [facility] ([facility]) Chloride Level 109 meq/L 98-107 [facility] ([facility]) Sodium Level 138 meq/L 136-145 [facility] ([facility]) Potassium Serum 3.8 meq/L 3.5-5.1 [facility] ([facility]) Testing was performed on a SLIGHTLY hemo lyzed specimen. Suggest recollection of specimen for more accurate test results. Calcium Level 8.8 mg/dL 8.8-10.2 [facility] ([facility]) Anion Gap 8 meq/L 8-16 [facility] ([facility] Carbon Dioxide Level 21 meq/L 21-32 [facility] ([facility]) ID Date Data Source [id number] 01/15/2021 12:28:00 AM EDT [facility]) Name Value Range Interpretation Code Description Data Cathy rce(s) Supporting Document(s) Ast/Sgot 23 U/L 7-37 [facility] ([facility]) Alt/SGPT 12 U/L 12-78 [facility] ([facility]) Bilirubin,Total 0.2 mg/dL 0.2-1.0 [facility] ([facility]) Alkaline Phosphatase 88 U/L 45-117 [facility] ([facility]) Total Protein 7.5 GM/DL 6.4-8.2 [facility] ([facility]) Albumin 3.3 GM/DL 3.2-5.2 [facility] ([facility]) Bilirubin,Direct Laboratory test result 0.0-0.2 [facility] ([facility]) Albumin/Globulin Ratio 0.8 1.2-2.2 [facility] ([facility]) ID Date Data Source [id number] 01/15/2021 12:28:00 AM EDT [facility] ([facility]) Name Value Range Interpretation Code Description Data Cathy rce(s) Supporting Document(s) CPK Creatine Phosphokinase 130 U/L 26-192 [facility] ([facility]) CK-MB Value Mass 3.5 ng/mL [facility]) Troponin I Laboratory test result [facility]) <content>Troponin I Reference Interval f or Siemens [place] LOCI:</content>
<content></content>
<content>99th Percentile= 0.00-0.045 ng/ml</content>
<content></content>
<content>Risk Stratification:</content>
<content><= 0.10 ng/ml Decreased Risk for Adverse Clinical</content>
<content>Events.</content>
<content>0.10-1.50 ng/ml Increased Risk for Adverse Clinical</content>
<content>Events. Evaluation of additional</content>
<content>criterion and/or repeat testing in 2-6</content>
<content>hours is suggested to rule out myocardial</content>
<content>damage.</content>
<content>>= 1.50 ng/ml Indicative of Myocardial Injury.</content>
<content></content> MB/CK Relative Index 2.69 [facility] ([facility]) <content>DIAGNOSIS CRITERIA</content>
<content>MMB ng/ml Relative Index (RI)</content>
<content>NON-AMI < or = 5 N/A</content>
<content>ASHBY ZONE > 5 < or = 4</content>
<content>AMI > 5 > 4</content>
<content></content> ID Date Data Source [id number] 01/15/2021 12:28:00 AM EDT [facility] ([facility]) Name Value Range Interpretation Code Description Data Cathy rce(s) Supporting Document(s) Ammonia [Mass/volume] in Blood 23 uMOL/L [facility] ([facility]) Lactate [Mass/volume] in Serum or Plasma 1.1 mmol/L 0.4-2.0 [facility] Y/N query for Sepsis Lactate Rule: Y ID Date Data Source [id number] 01/15/2021 12:28:00 AM EDT [facility] ([facility]) Name Value Range Interpretation Code Description Data Cathy rce(s) Supporting Document(s) Inr 1.03 [facility] ([facility]) THERAPUTIC HUMAN INR VALUES INDICATIONS NORMAL RANGES PROPHYLAXIS/TREATMENT OF: VENOUS THROMBOSIS 2.0-3.0 PULMONARY EMBOLISM 2.0-3.0 PREVENTION OF SYSTEMIC EMBOLISM FROM: TISSUE HEART VALVES 2.0-3.0 ACUTE MYOCARDIAL INFARCTION 2.0-3.0 VALVULAR HEART DISEASE 2.0-3.0 ATRIAL FIBRILLATION 2.0-3.0 MECHANICAL VALVES(HIGH RISK) 2.5-3.5 RECURRENT MYOCARDIAL INFARCTION 2.5-3.5 Prothrombin Time 13.9 s 12.7-14.5 [facility] ([facility]) Partial Thromboplastin Time 30.2 s 25.9-37.0 [place] [facility] ([facility]) ID Date Data Source [id number] 01/15/2021 12:28:00 AM EDT [facility] ([facility]) Name Value Range Interpretation Code Description Data Cathy rce(s) Supporting Document(s) White Blood Count 8.3 10 4.0-10.0 [facility] ([facility]) Red Blood Count 4.01 10 4.00-5.40 [facility] ([facility]) Hemoglobin 10.9 g/dL 12.0-15.5 [facility]) Hematocrit 34.0 % 36.0-47.0 [facility] Mean Corpuscular Hemoglobin 27.2 pg 27.0-33.0 [facility] ([facility]) Mean Corpuscular Volume 84.8 fl 80.0-96.0 [facility] ([facility]) Red Cell Distribution Width 15.2 % 11.5-14.5 [facility] ([facility]) Mean Corpuscular HGB Conc 32.1 g/dL 32.0-36.5 [facility] ([facility]) Neutrophils % 60.8 % 36.0-66.0 [facility] ([facility]) Platelet Count, Automated 331 10 150-450 [facility] ([facility]) Lymph % 27.5 % 24.0-44.0 [facility]) Eos % 2.2 % 0.0-3.0 [facility]) [place] % 8.6 % 2.0-8.0 [facility]) Baso % 0.7 % 0.0-1.0 [facility]) Nucleated Red Blood Cell % 0.0 % 0-0 [facility] ([facility]) Neutrophils # 5.1 10 1.5-8.5 [facility] ([facility]) Immature Granulocyte % 0.2 % 0-3.0 [facility] ([facility]) [place] # 0.7 10 0.0-0.8 [facility]) Lymph # 2.3 10 1.5-5.0 [facility]) Eos # 0.2 10 0.0-0.5 [facility]) Baso # 0.1 10 0.0-0.2 [facility] ([facility]) ID Date Data Source [id number] 01/15/2021 12:27:00 AM EDT [facility] ([facility] Name Value Range Interpretation Code Description Data Cathy rce(s) Supporting Document(s) Color, Urine RFX Laboratory test result [facility] Appearance, Urine RFX Laboratory test result [facility] Specific [place] Ur Auto RFX 1.023 1.002-1.035 [facility] PH,Urine RFX 5.0 units 5.0-9.0 [facility] Protein, Urine Auto RFX Laboratory test result [facility] Ketone, Urine Auto RFX Laboratory test result [facility] Urobilinogen, Urine Auto RFX 0.2 mg/dL 0.0-2.0 [facility] Glucose, Urine (Ua) Auto RFX Laboratory test result [facility] Leukocyte Esterase Ur Auto RFX Laboratory test result [facility] Bilirubin, Urine Auto RFX Laboratory test result [facility] Nitrite, Urine Auto RFX Laboratory test result [facility] WBC, Urine Auto RFX 5 /HPF 0-3 [facility] ([facility]) RBC, Urine Auto RFX 5 /HPF 0-3 [facility] Blood, Urine Blood RFX Laboratory test result [facility] Squam Epithelial Cell Ur Aurfx 7 /HPF 0-6 [facility]) Mucus, Urine RFX Laboratory test result [facility] ([facility] [facility]) Bacteria, Urine Auto RFX Laboratory test result [facility] Hyaline Cast, Urine Auto RFX 4 /LPF 0-1 M [facility] ([facility]) ID Date Data Source [id number] 10/11/2020 08:09:48 AM EDT [place] Elisa mathur - [facility] MARCIAL CORNEJO IDENTIFICATION:[facility] David CORNEJO Record Number: [id number] Of : 1945CHIEF COMPLAINT:patient here with sores on b/l feet, per patients dtr. Shraddha patient is apicker, dtr concerned shemay have infection. Patient not sure of all her medications she is takingHISTORY OF PRESENT ILLNESS:Patient is a 75-year-old female presents walk-in clinic today with daughterwith sores of feetand legs. Patient is staying with her daughter over the next several weeks,visiting from [facility]. 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 She has multiple scabbedwounds on the upper [...] several weeks. Call results todiana Henderson at [phone]. Ordered:mupirocin topical, 1 savanah, Topical, tid, # 30 g, Maintenance, Pharmacy:[id number], 1 appTopical tidsulfamethoxazole-trimethoprim, 1 tab(s), PO (oral), bid, # 14 tab(s),Maintenance, Pharmacy: [facility] #[id number], 1 tab(s) PO (oral) bid,x7 day(s)Culture [...] fevers develop or redstreaking up the leg, [facility].Follow-Up Appointments With: Follow up with primary care providerAddress: , , ,When: 5 to 7 days, only if needed This document was authenticated by Lisette Gilliland PA PA on 108:09 AM Name Value Range Interpretation Code Description Data Cathy rce(s) Supporting Document(s) ID Date Data Source [id number] 10/13/2020 09:26:06 AM EDT [place] Elisa mathur - [facility] Name PATRICIA CORNEJO hdate 1945Sex FEMALE Age 75 yearsPatient Acct. No. [id number] Watson [facility] Physician Lisette Gilliland PAPrimary Care [...] 1 SusceptiblePerforming Locationsf1: This test was performed at:[facility], [address] [place] [address], [address] [place] [address] Name Value Range Interpretation Code Description Data Cathy rce(s) Supporting Document(s) ID Date Data Source [id number] 09/10/2020 12:40:00 PM EDT [facility] ([facility]) Name Value Range Interpretation Code Description Data Cathy rce(s) Supporting Document(s) Glucose [Mass/volume] in Serum or Plasma 97 mg/dL 74-99 [facility] ([facility]) 100-125 mg/dL PRE-DIABETES/FASTING >126 mg/dL DIABETES/FASTING Sodium [Moles/volume] in Serum or Plasma 138 meq/L 136-145 [facility] ([facility]) Urea nitrogen [Mass/volume] in Serum or Plasma 20 mg/dL 7-18 [facility] ([facility]) Creatinine 1.0 mg/dL 0.6-1.3 [facility] ([facility]) Carbon dioxide, total [Moles/volume] in Serum or Plasma 25 meq/L 21 -32 [facility] ([facility]) Chloride [Moles/volume] in Serum or Plasma 102 meq/L 98-107 [facility] ([facility]) Potassium [Moles/volume] in Serum or Plasma 4.4 meq/L 3.5-5.1 [facility] ([facility]) Alkaline phosphatase isoenzyme [Units/volume] in Serum or Pl asma 94 mg/dL 46-116 [facility] ([facility]) Total Bilirubin 0.3 mg/dL 0.2-1.0 [facility] ([facility]) Calcium [Mass/volume] in Serum or Plasma 9.6 mg/dL 8.5-10.1 [facility] ([facility]) Aspartate aminotransferase [Enzymatic activity/volume] in Serum or Plasma 16 U/L 15-37 [facility] ([facility] ) Albumin [Mass/volume] in Serum or Plasma 3.4 g/dL 3.4-5.0 [facility] ([facility]) Alanine aminotransferase [Enzymatic activity/volume] in Seru m or Plasma 17 U/L 12-78 [facility] ([facility]) Proteinase 3 Ab [Units/volume] in Serum 7.2 g/dL 6.4-8.2 [facility] ([facility]) A/G Ratio 0.89 CALC 1.00-1.90 [facility] Glomerular filtration rate/1.73 sq M pre dicted among non-blacks [Volume Rate/Area] in Serum or Plasma by Creatinine-based formula (MDRD) 54 mL/min [facility] Glomerular filtration rate/1.73 sq M pre dicted among blacks [Volume Rate/Area] in Serum or Plasma by Creatinine-based formula (MDRD) Laboratory test result [facility] ([facility]) <content>CHRONIC KIDNEY DISEASE STAGING PER NKF</content>
<content></content>
<content>STAGE I & II GFR >= 60 NORMAL TO MILDLY DECREASED</content>
<content>STAGE III GFR 30-59 MODERATELY DECREASED</content>
<content>STAGE IV GFR 15-29 SEVERELY DECREASED</content>
<content>STAGE V GFR <15 VERY LITTLE GFR LEFT</content>
<content>ESRD GFR <15 ON HOSPICE PHYSICIAN</content>
<content></content> ID Date Data Source [id number] 09/10/2020 12:40:00 PM EDT [facility] Name Value Range Interpretation Code Description Data Cathy rce(s) Supporting Document(s) Erythrocytes [#/volume] in Blood by Automated count 4.22 x10*6/UL 4.2 0-6.30 [facility] ([facility]) Hemoglobin [Mass/volume] in Blood 12.0 g/dL 12.0-18.0 [facility] ([facility]) Leukocytes [#/volume] in Blood by Automated count 6.9 x10*3/UL 4.1-10 .9 [facility] ([facility]) MCV 85.9 fL 80.0-97.0 [facility]) Hematocrit [Volume Fraction] of Blood by Automated count 36.2 % 3 7.0-51.0 [facility] ([facility]) MCH 28.4 pg 26.0-32.0 [facility]) MCHC 33.1 g/dL 31.0-38.0 [facility] Erythrocyte distribution width [Ratio] by Automated count 13.9 % 11.6-13.7 [facility] ([facility]) Platelets [#/volume] in Blood by Automated count 272 x10*3/UL 140-440 [facility] ([facility]) Mid % 6.0 % 1.7-9.3 [facility] ([facility]) MPV 7.5 FL 7.8-11.0 [facility] ([facility]) Lymph % 18.8 % 10.0-58.5 [facility] ([facility]) Neut % 75.2 % 37.0-92.0 [facility] ([facility]) Mid # 0.4 x10*3/UL 0.1-0.6 [facility] ([facility]) Lymph # 1.3 x10*3/UL 0.6-4.1 [facility] ([facility]) Neut # 5.2 x10*3/UL 2.0-7.8 [facility] ([facility]) ID Date Data Source [id number] 05/21/2020 08:20:00 AM EST [facility] ([facility]) Name Value Range Interpretation Code Description Data Cathy rce(s) Supporting Document(s) Thyrotropin [Units/volume] in Serum or Plasma by Detec tion limit <= 0.05 mIU/L 0.53 uIU/mL 0.36-3.74 [facility] ([facility] ID Date Data Source [id number] 05/21/2020 08:20:00 AM EST [facility] ([facility] Name Value Range Interpretation Code Description Data Cathy rce(s) Supporting Document(s) Cholesterol [Mass/volume] in Serum or Plasma 197 mg/dL 131-200 [facility] ([facility]) Triglyceride [Mass/volume] in Serum or Plasma 189 mg/dL 30-150 [facility] ([facility]) Cholesterol in HDL [Mass/volume] in Serum or Plasma 54 mg/dL 35-60 [facility] ([facility]) Cholesterol in LDL [Mass/volume] in Serum or Plasma by calcu lation 105 CALC 50-159 [facility] ([facility]) ID Date Data Source [id number] 05/21/2020 08:20:00 AM EST [facility] ([facility]) Name Value Range Interpretation Code Description Data Cathy rce(s) Supporting Document(s) Glucose [Mass/volume] in Serum or Plasma 157 mg/dL 74-99 [facility] ([facility]) 100-125 mg/dL PRE-DIABETES/FASTING >126 mg/dL DIABETES/FASTING Urea nitrogen [Mass/volume] in Serum or Plasma 32 mg/dL 7-18 [facility] ([facility]) NOTE: bun,alk phos,albumin,magnesium verified Creatinine 1.3 mg/dL 0.6-1.3 [facility] ([facility]) Sodium [Moles/volume] in Serum or Plasma 138 meq/L 136-145 [facility] ([facility]) Potassium [Moles/volume] in Serum or Plasma 4.3 meq/L 3.5-5.1 [facility] ([facility]) Chloride [Moles/volume] in Serum or Plasma 102 meq/L 98-107 [facility] ([facility]) Carbon dioxide, total [Moles/volume] in Serum or Plasma 26 meq/L 21 -32 [facility] ([facility]) Alkaline phosphatase isoenzyme [Units/volume] in Serum or Pl asma 119 mg/dL 46-116 [facility] ([facility]) Calcium [Mass/volume] in Serum or Plasma 8.9 mg/dL 8.5-10.1 [facility] ([facility]) Aspartate aminotransferase [Enzymatic activity/volume] in Serum or Plasma 17 U/L 15-37 [facility] ([facility] ) Total Bilirubin 0.2 mg/dL 0.2-1.0 [facility] ([facility]) Alanine aminotransferase [Enzymatic activity/volume] in Seru m or Plasma 12 U/L 12-78 [facility] ([facility]) Albumin [Mass/volume] in Serum or Plasma 3.3 g/dL 3.4-5.0 [facility] ([facility]) Proteinase 3 Ab [Units/volume] in Serum 6.9 g/dL 6.4-8.2 [facility]) A/G Ratio 0.92 CALC 1.00-1.90 [facility] ([facility]) Glomerular filtration rate/1.73 sq M pre dicted among blacks [Volume Rate/Area] in Serum or Plasma by Creatinine-based formula (MDRD) 49 mL/min [facility]) <content>CHRONIC KIDNEY DISEASE STAGING PER NKF</content>
<content></content>
<content>STAGE I & II GFR >= 60 NORMAL TO MILDLY DECREASED</content>
<content>STAGE III GFR 30-59 MODERATELY DECREASED</content>
<content>STAGE IV GFR 15-29 SEVERELY DECREASED</content>
<content>STAGE V GFR <15 VERY LITTLE GFR LEFT</content>
<content>ESRD GFR <15 ON HOSPICE PHYSICIAN</content>
<content></content> Glomerular filtration rate/1.73 sq M pre dicted among non-blacks [Volume Rate/Area] in Serum or Plasma by Creatinine-based formula (MDRD) 40 mL/min [facility]) ID Date Data Source [id number] 05/21/2020 08:20:00 AM EST [facility] ([facility]) Name Value Range Interpretation Code Description Data Cathy rce(s) Supporting Document(s) Magnesium 1.3 mg/dL 1.8-2.4 [facility] ([facility]) ID Date Data Source [id number] 05/21/2020 08:20:00 AM EST [facility] ([facility]) Name Value Range Interpretation Code Description Data Cathy rce(s) Supporting Document(s) Hemoglobin A1c/Hemoglobin.total in Blood 6.0 % [facility] ([facility]) Lab Result Notes: Pre-Diabetes 5.7 - 6.4 % Diabetes = or > 6.5% Glucose mean value [Mass/volume] in Blood Estimated fr om glycated hemoglobin 125 mg/dL 60-110 [facility] ID Date Data Source [id number] 05/21/2020 08:20:00 AM EST [facility] ([facility]) Name Value Range Interpretation Code Description Data Cathy rce(s) Supporting Document(s) Magnesium, Serum Laboratory test result [facility] ([facility]) Hemoglobin A1c/Hemoglobin.total in Blood Laboratory test result [facility] ([facility]) ID Date Data Source [id number] 05/21/2020 08:19:00 AM EST [facility] ([facility]) Name Value Range Interpretation Code Description Data Cathy rce(s) Supporting Document(s) Leukocytes [#/volume] in Blood by Automated count 6.8 x10*3/UL 4.1-10 .9 [facility] ([facility]) NOTE: CBC VERIFIED Erythrocytes [#/volume] in Blood by Automated count 3.99 x10*6/UL 4.2 0-6.30 [facility] ([facility]) MCV 85.4 fL 80.0-97.0 [facility] ([facility]) Hemoglobin [Mass/volume] in Blood 11.6 g/dL 12.0-18.0 [facility] ([facility]) Hematocrit [Volume Fraction] of Blood by Automated count 34.1 % 3 7.0-51.0 [facility] ([facility]) MCHC 34.1 g/dL 31.0-38.0 [facility] ([facility]) MCH 29.1 pg 26.0-32.0 [facility] ([facility]) Erythrocyte distribution width [Ratio] by Automated count 13.8 % 11.6-13.7 [facility] Platelets [#/volume] in Blood by Automated count 277 x10*3/UL 140-440 [facility] ([facility]) MPV 7.9 FL 7.8-11.0 [facility] Lymph % 24.8 % 10.0-58.5 [facility] Mid % 6.4 % 1.7-9.3 [facility] Neut % 68.8 % 37.0-92.0 [facility] Lymph # 1.6 x10*3/UL 0.6-4.1 [facility] ([facility]) Mid # 0.6 x10*3/UL 0.1-0.6 [facility] ([facility]) Neut # 4.6 x10*3/UL 2.0-7.8 [facility] ([facility]) ID Date Data Source [id number] 02/11/2020 01:54:00 AM EST [facility] ([facility]) Name Value Range Interpretation Code Description Data Cathy rce(s) Supporting Document(s) Erythrocyte sedimentation rate by Westergren method 62 mm/hr 0-30 [facility] ([facility]) Urate [Mass/volume] in Serum or Plasma 7.7 mg/dL 2.6-6.0 [facility] ([facility]) ID Date Data Source [id number] 02/11/2020 01:54:00 AM EST [facility] ([facility]) Name Value Range Interpretation Code Description Data Cathy rce(s) Supporting Document(s) White Blood Count 14.6 10 4.0-10.0 [facility] ([facility]) Red Blood Count 4.09 10 4.00-5.40 [facility] ([facility]) Hemoglobin 11.7 g/dL 12.0-15.5 [facility] ([facility]) Hematocrit 36.4 % 36.0-47.0 [facility] ([facility]) Mean Corpuscular Volume 89.0 fl 80.0-96.0 [facility] ([facility]) Mean Corpuscular HGB Conc 32.1 g/dL 32.0-36.5 MEDE NT ([facility]) Mean Corpuscular Hemoglobin 28.6 pg 27.0-33.0 [place] [facility] ([facility]) Platelet Count, Automated 243 10 150-450 [facility] NT ([facility]) Neutrophils % 79.9 % 36.0-66.0 [facility] ([facility]) Red Cell Distribution Width 14.3 % 11.5-14.5 [place] [facility] ([facility]) [place] % 10.4 % 0.0-5.0 [facility]) Eos % 0.2 % 0.0-3.0 [facility]) Lymph % 8.9 % 24.0-44.0 [facility]) Immature Granulocyte % 0.3 % 0-3.0 [facility] ([facility]) Baso % 0.3 % 0.0-1.0 [facility]) Nucleated Red Blood Cell % 0.0 % 0-0 MED ENT ([facility]) Lymph # 1.3 10 1.5-5.0 [facility]) Neutrophils # 11.6 10 1.5-8.5 [facility] [facility]) Baso # 0.0 10 0.0-0.2 [facility]) Eos # 0.0 10 0.0-0.5 [facility]) [place] # 1.5 10 0.0-0.8 [facility]) Procedure Social History No Information Vital Signs ID Date Data Source [id number] Name Value Range Interpretation Code Description Data Source(s) Body height 59.8 [in_i] 59.8 [in_i] [place] - [facility] Result Comment: Result placed secondary from cm, converted to Inches Body weight Measured 194 lb 0 oz 194 lb 0 oz As cension Idalmis - [facility] Result Comment: Result placed secondary from kg, converted to lbs Systolic blood pressure 150 mm[Hg] Above high normal 150 m m[Hg] [place]almis - [facility] Diastolic blood pressure 92 mm[Hg] Above high normal 92 m m[Hg] [place]mis - [facility] Heart rate 88 /min Normal (applies to non-numeric resul ts) 88 /min [place] Id[place]mis - [facility] Respiratory rate 16 /min Normal (applies to non-numeric results) 16 /min [place] Idalmis - [facility] Body height 60 [in_i] 60 [in_i] [facility] ([facility]) 5'0" Body mass index (BMI) [Ratio] 37.1 kg/m2 37.1 k g/m2 [facility] ([facility]) Heart rate 72 /min 72 /min [facility]) Systolic blood pressure 134 mm[Hg] 134 mm[Hg] [facility] Diastolic blood pressure 80 mm[Hg] 80 mm[Hg] [facility] ([facility]) Body weight 190.00 [lb_av] 190.00 [lb_av] MED[facility] T ([facility]) Diastolic blood pressure 78 mm[Hg] 78 mm[Hg] [facility] ([facility]) Body height 60 [in_i] 60 [in_i] [facility] 5'0" Body weight 191.00 [lb_av] 191.00 [lb_av] [facility] T ([facility]) Body mass index (BMI) [Ratio] 37.3 kg/m2 37.3 k g/m2 [facility] Systolic blood pressure 130 mm[Hg] 130 mm[Hg] [facility] Heart rate 80 /min 80 /min [facility]) Systolic blood pressure 134 mm[Hg] 134 mm[Hg] [facility] Diastolic blood pressure 80 mm[Hg] 80 mm[Hg] [facility]) Heart rate 86 /min 86 /min [facility] ([facility], [facility]) Respiratory rate 16 /min 16 /min [facility] ( [facility]) Body height 60 [in_i] 60 [in_i] [facility] ([facility] Urgent [facility], [facility]) 5'0" Body weight 175.00 [lb_av] 175.00 [lb_av] [facility] T ([facility], [facility]) Oxygen saturation in Arterial blood by Pulse oximetry 97 % 97 % [facility]) Body temperature 98.4 [degF] 98.4 [degF] [facility] Body mass index (BMI) [Ratio] 34.2 kg/m2 34.2 k g/m2 [facility] ([facility], [facility]) Heart rate 108 /min 108 /min [facility] ([facility]) Heart rate 100 /min 100 /min [facility] ([facility], [facility]) Respiratory rate 20 /min 20 /min [facility] ( [facility], [facility]) Oxygen saturation in Arterial blood by Pulse oximetry 99 % 99 % [facility]) Body temperature 98.5 [degF] 98.5 [degF] [facility] ([facility], [facility]) Body weight 194.00 [lb_av] 194.00 [lb_av] MEDEN T ([facility], [facility]) Systolic blood pressure 136 mm[Hg] 136 mm[Hg] M EDENT ([facility], [facility]) Diastolic blood pressure 82 mm[Hg] 82 mm[Hg] [facility]) Body height 60 [in_i] 60 [in_i] [facility] ([facility], [facility]) 5'0" Body mass index (BMI) [Ratio] 37.9 kg/m2 37.9 k g/m2 [facility] ([facility]) Patient Treatment Plan of Care Planned Activity Planned Date Details Description Data Source (s) Bactroban 2% topical ointment 10/10/2020 08:09:00 PM EDT [place] - [facility] Bactrim DS 800 mg-160 mg oral tablet 10/10/2020 08:09:00 PM EDT [place] [facility] Meclizine Hydrochloride 25 MG Oral Tablet 10/10/2020 07:53:00 PM ED T [place] [facility] [facility]
--- NOTE | 2021-01-20 13:21 | REPVR ---
PROCEDURE INFORMATION: Exam: CT Cervical Spine Without Contrast Exam date and time: 01/20/2021 12:55 PM Age: 75 years old Clinical indication: Injury or trauma; Fall; Blunt trauma TECHNIQUE: Imaging protocol: Computed tomography images of the cervical spine without contrast. Radiation optimization: All CT scans at this facility use at least one of these dose optimization techniques: automated exposure control; mA and/or kV adjustment per patient size (includes targeted exams where dose is matched to clinical indication); or iterative reconstruction. COMPARISON: CT Head without contrast 01/20/2021 12:46 PM FINDINGS: Vertebrae: Osteopenia and degenerative changes are appreciated. There is a mildly displaced type 2 odontoid fracture present. No significant angulation. The fracture line is relatively smooth suggesting it may represent a more chronic deformity but I have no priors. Reversal of the cervical lordosis suggests spasm. The Epidural space: No epidural fluid. Other bones/joints: No displaced rib fractures. Soft tissues: No paraspinal hematoma. Prevertebral Space: Mild prevertebral soft tissue swelling at the level of C2 could suggest a more acute fracture here. Thyroid: Mildly enlarged heterogeneous thyroid. Lymph nodes: Small neck nodes at multiple stations bilaterally without confluent lymphadenopathy. Lungs: The lung apices are clear. IMPRESSION: Type 2 odontoid fracture as above. In the absence of prior studies, MRI should be considered to evaluate for acuity. Electronically signed by: Severo Espino On 01/20/2021 13:20:21 PM
--- NOTE | 2021-01-20 13:30 | REP ---
INDICATION: Altered Mental Status. COMPARISON: Portable chest, 01/15/2021. TECHNIQUE: Upright AP chest image was obtained. FINDINGS: The lungs are clear. There is no lobar consolidation or pleural effusion. The heart size is normal. The upper abdominal bowel gas pattern is normal. There are no bony abnormalities. IMPRESSION: No evidence of acute cardiopulmonary pathology. <Electronically signed by Kelvin Cuello > 01/20/21 [id number]
--- NOTE | 2021-01-20 13:35 | REP ---
INDICATION: Altered Mental Status. COMPARISON: Right shoulder, 02/11/2020 TECHNIQUE: Three views of the right shoulder were obtained. 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 There is no evidence of fracture or dislocation. The visualized right lung is unremarkable. IMPRESSION: Arthritis of the acromioclavicular and glenohumeral joints. <Electronically signed by Kelvin Cuello > 01/20/21 [id number]
--- NOTE | 2021-01-20 13:36 | REP ---
INDICATION: Altered Mental Status. COMPARISON: None. TECHNIQUE: Two views of the right humerus were obtained. FINDINGS: No evidence of fracture. There is arthritis of the glenohumeral joint and the elbow joint. There are no soft tissue abnormalities or radiopaque foreign bodies. IMPRESSION: No evidence of humeral fracture. There is arthritis of the shoulder and elbow joints. <Electronically signed by Kelvin Cuello > 01/20/21 [id number]
--- NOTE | 2021-01-20 13:38 | REP ---
INDICATION: Altered Mental Status. COMPARISON: None. TECHNIQUE: Three views of the right elbow were obtained. FINDINGS: There are no fractures or dislocations. There is severe arthritis of the radiocapitellar and ulnar humeral joints. There is no elbow joint effusion evident. There is a small olecranon spur. IMPRESSION: Arthritis. No evidence of acute injury. <Electronically signed by Kelvin Cuello > 01/20/21 [id number]
[2021-01-20 13:49] LABS: VENOUS BASE EXCESS -1.7 (-2.0-2.0); VENOUS HCO3 24.3 MEQ/L (23.0-27.0); VENOUS O2 SATURATION 82.9 % (60.0-80.0); VENOUS PARTIAL PRESSURE CO2 46.1 mmHg (38.0-50.0); VENOUS PARTIAL PRESSURE O2 48.1 mmHg (30.0-50.0); VENOUS PH 7.339 UNITS (7.330-7.430); VENOUS STANDARD HCO3 22.7 MEQ/L; VENOUS TOTAL CO2 25.7 MEQ/L (24.0-28.0)
[2021-01-20 13:51] LABS: BASO % 0.2 % (0.0-1.0); EOS % 0.3 % (0.0-3.0); HEMATOCRIT 37.7 % (36.0-47.0); HEMOGLOBIN 11.9 g/dl (12.0-15.5); LYMPH # 1.1 10^3/uL (1.5-5.0); MEAN CORPUSCULAR HEMOGLOBIN 27.4 pg (27.0-33.0); MEAN CORPUSCULAR HGB CONC 31.6 g/dl (32.0-36.5); MEAN CORPUSCULAR VOLUME 86.9 fl (80.0-96.0); MONO # 1.7 10^3/uL (0.0-0.8); MONO % 11.2 % (2.0-8.0); NEUTROPHILS # 12.2 10^3/uL (1.5-8.5); NEUTROPHILS % 80.7 % (36.0-66.0); PLATELET COUNT, AUTOMATED 278 10^3/uL (150-450); RED BLOOD COUNT 4.34 10^6/uL (4.00-5.40); WHITE BLOOD COUNT 15.1 10^3/uL (4.0-10.0)
[2021-01-20 14:03] LABS: OSMOLALITY SERUM 282 MOSM/KG (280-301)
[2021-01-20 14:26] LABS: ALBUMIN 2.9 GM/DL (3.2-5.2); ALT/SGPT 13 U/L (12-78); BILIRUBIN,DIRECT 0.4 MG/DL (0.0-0.2); BILIRUBIN,TOTAL 0.9 MG/DL (0.2-1.0); BLOOD UREA NITROGEN 21 MG/DL (7-18); CALCIUM LEVEL 8.8 MG/DL (8.8-10.2); CARBON DIOXIDE LEVEL 24 MEQ/L (21-32); CHLORIDE LEVEL 100 MEQ/L (98-107); CK-MB VALUE MASS < 1.0 NG/ML (<3.6); CPK CREATINE PHOSPHOKINASE 75 U/L (26-192); CREATININE FOR GFR 0.89 MG/DL (0.55-1.30); GLOMERULAR FILTRATION RATE > 60.0 (>39); GLUCOSE, FASTING 134 MG/DL (70-100); MAGNESIUM LEVEL 1.3 MG/DL (1.8-2.4); MB/CK RELATIVE INDEX 1.33 (< OR =4); SODIUM LEVEL 135 MEQ/L (136-145); THYROID STIMULATING HORMONE 0.403 uIU/ML (0.358-3.740); TOTAL PROTEIN 7.2 GM/DL (6.4-8.2); TROPONIN I < 0.02 NG/ML (< 0.10)
[2021-01-20] MEDS ORDERED: MAG SULF 1GM/100ML (MAG RUN) 1 GM in IV 1 EA IV ONE ×4 (15:00)
--- NOTE | 2021-01-20 16:11 | REPVR ---
PROCEDURE INFORMATION: Exam: MR Cervical Spine Without Contrast Exam date and time: 01/20/2021 3:22 PM Age: 75 years old Clinical indication: Injury or trauma; Fall; Fracture, traumatic injury; Not specified; Second (c-2); Additional info: ? Dens fracture TECHNIQUE: Imaging protocol: Multiplanar magnetic resonance images of the cervical spine without contrast. COMPARISON: CT Spine,cervical w/o contrast 01/20/2021 12:48 PM FINDINGS: Vertebrae: There is diminished T1 and increased T2 signal in the odontoid raising the question of a acute component to the fracture seen there on CT today. Benign marrow signal on the T1 weighted images. Spinal cord: No abnormal cord signal. Spinal epidural space: No epidural fluid. No definite epidural fluid. C2-C3: At C2-C3, facet changes contribute to mild left-sided foraminal encroachment. C3-C4: At C3-C4 there are mild spondylitic changes most pronounced at the right paracentral level with moderate foraminal encroachment bilaterally minimal central stenosis. C4-C5: At C4-C5, spondylitic changes right greater than left moderate foraminal encroachment bilaterally minimal central stenosis. C5-C6: At C5-C6, spondylitic changes most pronounced in the proximal foramina on the right with severe right mild left foraminal encroachment along with mild to moderate central stenosis. C6-C7: At C6-C7, spondylitic changes with moderate central stenosis along with moderate to severe bilateral foraminal encroachment. C7-T1: Facet changes contribute to mild to moderate bilateral foraminal encroachment without significant central stenosis at C7-T1. Other bones/joints: The skull base is unremarkable. Soft tissues: Mild prevertebral soft tissue swelling edema at the level of C2 through C4. Paraspinal muscular atrophy without paraspinal mass or hematoma. The interspinous soft tissues are intact. The anterior longitudinal ligament is not well seen at the level of C2 through C4 while the posterior looks intact but again there is motion artifact. Disc desiccation loss of disc space at multiple levels. Lymph nodes: No lymphadenopathy. Vertebral arteries: Expected flow voids in the vertebral arteries. Other findings: Motion artifact. IMPRESSION: 1. Motion limited exam. 2. Edema at the level of the odontoid fracture suggesting that it could be recent. No significant offset and no additional fractures. 3. No abnormal cord signal. 4. Degenerative changes with limited mass effect. 5. Prevertebral edema C2 through C4 with nonvisualization of the anterior longitudinal ligament at this level. Electronically signed by: Severo Espino On 01/20/2021 16:10:32 PM
[2021-01-20] MEDS ORDERED: MORPHINE 2 MG/ML 1ML VIAL (J2270) IV PRN (17:10)
[2021-01-20] MEDS ORDERED: ONDANSETRON 4MG/2ML VIAL IV ONE (17:10)
[2021-01-20] MEDS ORDERED: NS 1,000 ML IV SCH (17:15)
--- NOTE | 2021-01-20 17:51 | ECGEPIP ---
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
[2021-01-20 17:53] LABS: RSV AMPLIFICATION NEGATIVE (NEGATIVE)
[2021-01-20 19:20] VITALS: BP 142/66
== END 2021-01-20 19:21 | disposition short-term general hospital (02) ==
LOC: M ED 12:15
DX: S12.100A Unspecified displaced fracture of second cervical vertebra, initial encounter for closed fracture (principal); W18.39XA Other fall on same level, initial encounter; Y92.018 Other place in single-family (private) house as the place of occurrence of the external cause; I10 Essential (primary) hypertension; F03.90 Unspecified dementia, unspecified severity, without behavioral disturbance, psychotic disturbance, mood disturbance, and anxiety; F39 Unspecified mood [affective] disorder; Z79.899 Other long term (current) drug therapy; Z79.82 Long term (current) use of aspirin
CPT/HCPCS: 70450; 71045; 72125; 72141; 73030; 73060; 73080; 80048; 80076; 82140; 82550; 82553; 82803; 83605; 83735; 83930; 84443; 84484; 85025; 87040; 87631; 93005; 93041; 96365; 96366; 96375; 99285; J2270; J3475

== ENCOUNTER 2025-01-23 13:13 | Emergency (ER) | payer MEDICARE, MEDICAID ==
[~2025-01-23] VITALS: Ht 152.4 cm; Wt 85.9 kg
[~2025-01-23 13:13] MED LIST changes: -COLC0.6T47 PO; +COLC0.6T53 PO; +EXCETAB32 PO; -EXCETAB33 PO; -HYDR200T3; -HYDR200T3 PO; +HYDR200T46; +HYDR200T46 PO
[2025-01-23] MEDS ORDERED: LIDOCAINE W/EPINEPHrine 1% 20 ML VIAL SC ONE (14:45)
[2025-01-23 16:00] VITALS: BP 148/72; TEMP 98.3; O2SAT 97
== END 2025-01-23 16:03 | disposition home or self-care (01) ==
LOC: M ED 13:13
DX: S01.01XA Laceration without foreign body of scalp, initial encounter (principal); W19.XXXA Unspecified fall, initial encounter; Y92.002 Bathroom of unspecified non-institutional (private) residence as the place of occurrence of the external cause; Y93.9 Activity, unspecified; Y99.9 Unspecified external cause status; I10 Essential (primary) hypertension; K21.9 Gastro-esophageal reflux disease without esophagitis; M43.12 Spondylolisthesis, cervical region; M47.892 Other spondylosis, cervical region; M43.22 Fusion of spine, cervical region; Z79.899 Other long term (current) drug therapy

== ENCOUNTER → 2025-01-30 | Outpatient (CLI) | payer MEDICARE, MEDICAID | LOC: M PLAIMG 10:09 | PROVIDERS: ATTEND Family Medicine | DX: M25.511 Pain in right shoulder (principal); M19.011 Primary osteoarthritis, right shoulder ==